=== PATIENT | female | born 1940 | race Caucasian/White ===

== ENCOUNTER 2019-05-27 07:26 | Day surgery (SDC) | payer MEDICARE, BC, MEDICAID ==
[2019-05-27] MEDS ORDERED: Gatifloxacin 0.5% Ophth Soln 2.5 ML Bot EYELF SCH (07:30)
[2019-05-27] MEDS ORDERED: Lactated Ringers 1,000 ML IV SCH (07:30)
[2019-05-27] MEDS ORDERED: Sodium Chloride 0.9% 10 ML Syringe FLUSH PRN (07:30)
[2019-05-27] MEDS: Cyclopentolate 1% Opth Soln 2 ML Bottle EYELF SCH ×3 (07:50→08:19)
[2019-05-27] MEDS: Phenylephrine 10% Ophth Soln 5 ML Bot EYELF SCH ×3 (07:55→08:24)
[2019-05-27] MEDS ORDERED: Balanced Salt Solution Ophth Irrig 15 ML Bottle EYELF ONE (09:16)
[2019-05-27] MEDS ORDERED: Water For Irrigation,Sterile 1,500 ML Container IRR ONE (09:16)
[2019-05-27] MEDS ORDERED: Balanced Salt Solution Plus Ophth Irrig 500 ML Bottle IOCULAR ONE (09:18)
[2019-05-27] MEDS ORDERED: Carbachol 0.01% Intraocular 1.5 ML Vial EYELF ONE (09:18)
[2019-05-27] MEDS ORDERED: EPINEPHrine 1 MG/1 ML Amp ONE (09:19)
[2019-05-27] MEDS ORDERED: Dexamethasone/Neomycin/Polymyxin B Ophth Oint 3.5 GM Tube EYELF ONE (09:19)
[2019-05-27] MEDS ORDERED: Lidocaine 2% with EPINEPHrine 1:100,000 20 ML MDV INJECT ONE (09:19)
[2019-05-27] MEDS ORDERED: Hyaluronate Sodium 1% 0.85 ML Syringe IOCULAR ONE (09:20)
[2019-05-27] MEDS ORDERED: Tetracaine HCl/PF 0.5% 4 ML Bottle EYEBOTH ONE (09:20)
[2019-05-27] MEDS ORDERED: Lidocaine 1% 10 ML MDV INJECT ONE (09:20)
--- NOTE | 2019-05-28 09:03 | OR ---
DATE OF SURGERY: 05/27/2019 SURGEON: Harry Carvajal MD PREOPERATIVE DIAGNOSIS: Cataract, left eye. POSTOPERATIVE DIAGNOSIS: Cataract, left eye. OPERATION PERFORMED: Phacoemulsification with posterior chamber lens insertion, left eye. HISTORY: The patient presents at this time with increasing amount of difficulty using the left eye to read. 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 This eye has a combined cataract and a cataract of aging. FINDINGS: The patient was taken to the operating room where appropriate anesthesia, sedation and monitoring were provided. A retrobulbar block was given on the left side. The eye was massaged and was found to be appropriately soft. The eye and eyelids were then prepped and draped in the usual sterile manner. A lid speculum was placed. A micro sharp blade was used to enter the anterior chamber inside the limbus inferior-temporally. Xylocaine was irrigated into the eye at this site. Healon was irrigated into the eye through this site. Then using a 2.85 mm corneal blade an entry was made into the anterior chamber just inside the limbus temporally. Healon was again irrigated into the eye. Then using a cystitome, the anterior capsulorrhexis was created. The lens nucleus was hydrodissected using a 27 gauge cannula and balanced salt solution. The phacoemulsification unit was introduced through the temporal site and the Omid spatula through the inferior temporal site. In so doing, the lens nucleus was phacoemulsified. The cortical fragments of the lens were removed using the irrigation aspiration unit. The posterior capsule was polished. Healon was irrigated into the eye. The posterior chamber lens was inserted and rotated into position inside the capsular bag. The Healon was irrigated out of the eye. Miostat was irrigated into the eye and the pupil rounded nicely. A single interrupted 10-0 Nylon suture was placed through the temporal corneal incision site. Balanced salt solution was irrigated into the eye. The wound was tested and found to be tight. Maxitrol ointment was placed into the patient's left eye. The eyelids were closed and an eye patch and mosley shield were placed. The patient left the operating room in good condition. /[id number]/MODL
== END 2019-05-27 10:15 | disposition home or self-care (01) ==
LOC: KA.SDS 07:26
PROVIDERS: ATTEND Ophthalmology
DX: H25.813 Combined forms of age-related cataract, bilateral (principal); I48.91 Unspecified atrial fibrillation; I50.9 Heart failure, unspecified; I27.20 Pulmonary hypertension, unspecified; K21.9 Gastro-esophageal reflux disease without esophagitis; F03.90 Unspecified dementia, unspecified severity, without behavioral disturbance, psychotic disturbance, mood disturbance, and anxiety; F32.9 Major depressive disorder, single episode, unspecified; L84 Corns and callosities; M25.551 Pain in right hip; M25.561 Pain in right knee; Z88.5 Allergy status to narcotic agent; Z88.6 Allergy status to analgesic agent; Z88.1 Allergy status to other antibiotic agents; Z79.01 Long term (current) use of anticoagulants; Z79.899 Other long term (current) drug therapy
CPT/HCPCS: 00142; A9270-GY; J0171; J2001; J7120; V2632

== ENCOUNTER 2019-06-24 08:10 | Day surgery (SDC) | payer MEDICARE, BC, MEDICAID ==
[2019-06-24] MEDS ORDERED: Gatifloxacin 0.5% Ophth Soln 2.5 ML Bot EYERT SCH (08:15)
[2019-06-24] MEDS ORDERED: Lactated Ringers 1,000 ML IV SCH (08:15)
[2019-06-24] MEDS ORDERED: Sodium Chloride 0.9% 10 ML Syringe FLUSH PRN (08:15)
[2019-06-24] MEDS: Cyclopentolate 1% Opth Soln 2 ML Bottle EYERT SCH ×3 (08:18→08:44)
[2019-06-24] MEDS: Phenylephrine 10% Ophth Soln 5 ML Bot EYERT SCH ×3 (08:23→08:50)
[2019-06-24] MEDS ORDERED: Water For Irrigation,Sterile 1,500 ML Container IRR ONE (10:04)
[2019-06-24] MEDS ORDERED: EPINEPHrine 1 MG/1 ML Amp ONE (10:05)
[2019-06-24] MEDS ORDERED: Carbachol 0.01% Intraocular 1.5 ML Vial EYERT ONE (10:05)
[2019-06-24] MEDS ORDERED: Balanced Salt Solution Ophth Irrig 15 ML Bottle EYERT ONE (10:05)
[2019-06-24] MEDS ORDERED: Balanced Salt Solution Plus Ophth Irrig 500 ML Bottle IOCULAR ONE (10:05)
[2019-06-24] MEDS ORDERED: Dexamethasone/Neomycin/Polymyxin B Ophth Oint 3.5 GM Tube EYERT ONE (10:06)
[2019-06-24] MEDS ORDERED: Lidocaine 1% 10 ML MDV INJECT ONE (10:06)
[2019-06-24] MEDS ORDERED: Lidocaine 2% with EPINEPHrine 1:100,000 20 ML MDV INJECT ONE (10:06)
[2019-06-24] MEDS ORDERED: Tetracaine HCl/PF 0.5% 4 ML Bottle EYEBOTH ONE (10:07)
[2019-06-24] MEDS ORDERED: Hyaluronate Sodium 1% 0.85 ML Syringe IOCULAR ONE (10:07)
--- NOTE | 2019-06-24 14:54 | OR ---
DATE OF SURGERY: 06/24/2019 SURGEON: Harry Carvajal MD PREOPERATIVE DIAGNOSIS: Cataract, right eye. POSTOPERATIVE DIAGNOSIS: Cataract, right eye. OPERATION PERFORMED: Phacoemulsification with posterior chamber lens insertion, right eye. HISTORY: The patient presents at this time with increasing amount of difficulty seeing to read using the right eye. The right eye has a vision of 20/100. The right lens has a 3+ nuclear sclerosis, a 1+ cortical change and a 2+ posterior subcapsular change. This eye has a combined cataract and a cataract of aging. FINDINGS: The patient was taken to the operating room where appropriate anesthesia, sedation and monitoring were provided. A retrobulbar block was given on the right side. The eye was massaged and was found to be appropriately soft. The eye and eyelids were then prepped and draped in the usual sterile manner. A lid speculum was placed. A micro sharp blade was used to enter the anterior chamber inside the limbus superior-temporally. Xylocaine was irrigated into the eye at this site. Healon was irrigated into the eye through this site. Then using a 2.85 mm corneal blade an entry was made into the anterior chamber just inside the limbus temporally. Healon was again irrigated into the eye. Then using a cystitome, the anterior capsulorrhexis was created. The lens nucleus was hydrodissected using a 27 gauge cannula and balanced salt solution. The phacoemulsification unit was introduced through the temporal site and the Omid spatula through the superior temporal site. In so doing, the lens nucleus was phacoemulsified. The cortical fragments of the lens were removed using the irrigation aspiration unit. The posterior capsule was polished. Healon was irrigated into the eye. The posterior chamber lens was inserted and rotated into position inside the capsular bag. The Healon was irrigated out of the eye. Miostat was irrigated into the eye and the pupil rounded nicely. A single interrupted 10-0 Nylon suture was placed through the temporal corneal incision site. Balanced salt solution was irrigated into the eye. The wound was tested and found to be tight. Maxitrol ointment was placed into the patient's right eye. The eyelids were closed and an eye patch and mosley shield were placed. The patient left the operating room in good condition. /[id number]/MODL
== END 2019-06-24 11:10 | disposition home or self-care (01) ==
LOC: KA.SDS 08:10
PROVIDERS: ATTEND Ophthalmology
DX: H25.11 Age-related nuclear cataract, right eye (principal); F41.8 Other specified anxiety disorders; I48.91 Unspecified atrial fibrillation; K21.9 Gastro-esophageal reflux disease without esophagitis; I50.9 Heart failure, unspecified; F03.90 Unspecified dementia, unspecified severity, without behavioral disturbance, psychotic disturbance, mood disturbance, and anxiety; G89.29 Other chronic pain; D50.9 Iron deficiency anemia, unspecified; G47.00 Insomnia, unspecified; I10 Essential (primary) hypertension; E83.42 Hypomagnesemia; Z79.899 Other long term (current) drug therapy; M81.0 Age-related osteoporosis without current pathological fracture; Z88.1 Allergy status to other antibiotic agents; Z88.5 Allergy status to narcotic agent; Z88.6 Allergy status to analgesic agent; Z88.8 Allergy status to other drugs, medicaments and biological substances
CPT/HCPCS: 66984; A9270; J0171; J2001; J7120; V2632

== ENCOUNTER 2019-12-27 10:11 | Observation (INO) | payer MEDICARE, BC, MEDICAID ==
[2019-12-27] MEDS ORDERED: Sodium Chloride 0.9% 1,000 ML IV ONE (10:28)
[2019-12-27] MEDS ORDERED: Sodium Chloride 0.9% 1,000 ML ONE (10:30)
[2019-12-27 10:55] LABS: ANION GAP 12.3 mmol/L (5-15)
--- NOTE | 2019-12-27 11:20 | EDM.PDOC ---
ED HPI GENERAL MEDICAL PROBLEM - General Chief Complaint: General Stated Complaint: lightheadedness Time Seen by Provider: 12/27/19 10:20 Source of Information: Reports: Patient, Family (son) - History of Present Illness INITIAL COMMENTS - FREE TEXT/NARRATIVE: 79-year-old female resident at [facility], brought in by EMS for evaluation of generalized weakness and dizziness complaints. Patient reports that she has been feeling dizzy for about a week to 10 days. She denies any syncopal episodes. She denies pain. She denies shortness of breath, cough, chest pain, fever or chills. She denies any significant weight gain or loss. She denies headache. He is on anticoagulation for history of atrial fibrillation. She has history of congestive heart failure iron deficiency anemia and hypertension. She has a history of chronic pain for her lower back. He is followed by Dr. Rossy Gao. Her son accompanies her who is her power of bankruptcy attorney. Onset: Gradual Onset Date: 12/18/19 Duration: Getting Worse Location: Reports: Generalized Severity: Moderate Improves with: Reports: None Worsens with: Reports: None Associated Symptoms: Reports: Weakness, Other (dizziness). Denies: Chest Pain, Cough, Fever/Chills, Headaches, Nausea/Vomiting, Seizure, Shortness of Breath, Syncope - Related Data Allergies Allergy/AdvReac Type Severity Reaction Status Date / Time ceftriaxone Allergy Cannot Verified 12/27/19 10:51 Remember hydrocodone Allergy Cannot Verified 12/27/19 10:51 Remember ibuprofen Allergy Cannot Verified 12/27/19 10:51 Remember ofloxacin Allergy Cannot Verified 12/27/19 10:51 Remember propoxyphene Allergy Cannot Verified 12/27/19 10:51 Remember Home Meds: Home Meds ARIPiprazole [Abilify] 2 mg PO DAILY 05/26/19 [History] Acetaminophen 1,000 mg PO DAILY PRN 05/26/19 [History] Carboxymethylcellulose/Lytes [John-Stir Oral [place]] 1 spray PO QID PRN 05/26/19 [ History] DULoxetine [Cymbalta] 60 mg PO DAILY 05/26/19 [History] Digoxin 125 mcg PO DAILY 05/26/19 [History] Docusate Sodium 100 mg PO BID PRN 05/26/19 [History] Donepezil HCl 10 mg PO DAILY 05/26/19 [History] Famotidine/Ca Carb/Mag Hydrox [Tums Dual Action] 1 tab PO QIDACANDBED PRN [History] Ferrous Sulfate 325 mg PO Q48H 05/26/19 [History] Furosemide 40 mg PO DAILY 05/26/19 [History] Magnesium Oxide 400 mg PO DAILY 05/26/19 [History] Metoprolol Succinate 12.5 mg PO DAILY 05/26/19 [History] Mv,Dimitri,Iron,Mn/Folic Acid/Chol [Hair, Skin and Nails Capsule] 2 tab PO DAILY 11/08 [History] Pantoprazole Sodium 40 mg PO DAILY 05/26/19 [History] Rivaroxaban [Xarelto] 15 mg PO DAILY 05/26/19 [History] Spironolactone [Aldactone] 12.5 mg PO DAILY 05/26/19 [History] buPROPion HCL [Wellbutrin Xl] 300 mg PO DAILY 05/26/19 [History] guaiFENesin [Mucinex] 600 mg PO Q12H PRN 05/26/19 [History] guaiFENesin/Dextromethorphan [Safetussin DM] 5 ml PO Q4H PRN 05/26/19 [History] lisinopriL [Lisinopril] 2.5 mg PO DAILY 05/26/19 [History] tiZANidine [Zanaflex] 4 mg PO BEDTIME PRN 05/26/19 [History] traMADol HCl [Tramadol HCl] 50 mg PO ASDIRECTED PRN 05/26/19 [History] traMADol HCl [Tramadol HCl] 50 mg PO TID 05/26/19 [History] traMADol HCl [Tramadol HCl] 100 mg PO BEDTIME 05/26/19 [History] Past Medical History HEENT History: Reports: Cataract, Impaired Vision Cardiovascular History: Reports: Afib, Heart Failure, Hypertension, SOB on Exertion Gastrointestinal History: Reports: GERD Genitourinary History: Reports: None [employer] MANAGER History: Reports: Musculoskeletal History: Reports: Back Pain, Chronic, Neck Pain, Chronic, Osteoporosis Neurological History: Reports: Alzheimers Disease Psychiatric History: Reports: Anxiety, Depression Hematologic History: Reports: Blood Transfusion(s) - Infectious Disease History Infectious Disease History: Reports: C-Difficile, Chicken Pox, Measles, MRSA, Mumps, Pertussis (Whooping Cough), Rubella - Past Surgical History HEENT Surgical History: Reports: Cataract Surgery Cardiovascular Surgical History: Reports: None GI Surgical History: Reports: Appendectomy, Cholecystectomy, Colonoscopy Female Surgical History: Reports: Hysterectomy Neurological Surgical History: Reports: Lumbar Spine Other Neurological Surgeries/Procedures: jose in lumbar region - history of mrsa Musculoskeletal Surgical History: Reports: Knee Replacement, Shoulder Surgery Other Musculoskeletal Surgeries/Procedures:: right shoulder reconstructed. right knee replacement Social & Family History - Caffeine Use Caffeine Use: Reports: Coffee, Soda, Tea ED ROS GENERAL - Review of Systems Review Of Systems: See Below Constitutional: Reports: Weakness, Fatigue. Denies: Fever, Chills, Diaphoresis HEENT: Reports: No Symptoms Respiratory: Reports: No Symptoms Cardiovascular: Reports: Lightheadedness. Denies: Chest Pain, Dyspnea on Exertion, Orthopnea, Palpitations, Syncope Endocrine: Reports: Fatigue GI/Abdominal: Reports: No Symptoms : Reports: No Symptoms Musculoskeletal: Reports: Back Pain (chronic) Skin: Reports: No Symptoms Neurological: Reports: Dizziness, Weakness Psychiatric: Reports: Depression Hematologic/Lymphatic: Reports: Easy Bleeding Immunologic: Reports: No Symptoms ED EXAM, GENERAL - Physical Exam Exam: See Below Exam Limited By: No Limitations General Appearance: Alert, WD/WN, No Apparent Distress Eye Exam: Bilateral Eye: EOMI Ears: Hearing Grossly Normal Nose: Normal Inspection Throat/Mouth: Normal Inspection, Normal Oropharynx, Normal Voice, No Airway Compromise Head: Atraumatic, Normocephalic Neck: Normal Inspection, Supple, Non-Tender, Full Range of Motion Respiratory/Chest: No Respiratory Distress, Lungs Clear, Normal Breath Sounds, No Accessory Muscle Use Cardiovascular: Normal Peripheral Pulses, Bradycardia Peripheral Pulses: 2+: Carotid (L), Carotid (R), Dorsalis Pedis (L) GI/Abdominal: Normal Bowel Sounds, Soft, Non-Tender, No Organomegaly Back Exam: Normal Inspection Extremities: Normal Inspection, Non-Tender, No Pedal Edema Neurological: Alert, Oriented, No Motor/Sensory Deficits Psychiatric: Normal Affect, Depressed Mood Skin Exam: Warm, Dry, Intact, Normal Color, No Rash Lymphatic: No Adenopathy Course - Vital Signs Last Recorded V/S: Last Vital Signs Temp 97 F 12/27/19 10:15 Pulse 50 L 12/27/19 10:15 Resp 20 12/27/19 10:15 BP 82/40 L 12/27/19 10:15 Pulse Ox 99 12/27/19 10:15 - Orders/Labs/Meds Orders: Active Orders 24 hr Category Date Time Status Patient Status [ADT] Routine ADT 12/27/19 11:45 Active Antiembolic Devices [RC] .Routine Care 12/27/19 11:48 Active EKG Documentation Completion [RC] ASDIRECTED Care 12/27/19 10:30 Active Height and Weight [RC] DAILY Care 12/27/19 11:45 Active Intake and Output [RC] QSHIFT Care 12/27/19 11:47 Active Oxygen Therapy [RC] PRN Care 12/27/19 11:47 Active Pulse Oximetry [RC] PRN Care 12/27/19 11:47 Active Up With Assistance [RC] ASDIRECTED Care 12/27/19 11:45 Active VTE/DVT Education [RC] PER UNIT ROUTINE Care 12/27/19 11:48 Active Vital Signs [RC] Q4H Care 12/27/19 11:45 Active POTASSIUM,K [CHEM] Stat Lab 12/27/19 11:43 Ordered TROPONIN I [CHEM] Timed Lab 12/27/19 17:00 Ordered UA W/MICROSCOPIC [URIN] Stat Lab 12/27/19 10:29 Ordered ARIPiprazole Med 12/28/19 09:00 Active 2 mg PO DAILY Acetaminophen [Tylenol Extra Strength] Med 12/27/19 11:49 Active 1,000 mg PO DAILY PRN Acetaminophen [Tylenol] Med 12/27/19 11:45 Active 650 mg PO Q4H PRN Carboxymethylcellulose/Lytes [John-Stir Oral [place]] Med 12/27/19 11:49 Active 0 ml MUCMEM QID PRN DULoxetine [Cymbalta] Med 12/28/19 09:00 Active 60 mg PO DAILY Digoxin [Lanoxin] Med 12/28/19 09:00 Active 125 mcg PO DAILY Docusate Sodium [Colace] Med 12/27/19 11:49 Active 100 mg PO BID PRN Docusate Sodium [Colace] Med 12/27/19 11:45 Active 100 mg PO DAILY PRN Donepezil [Aricept] Med 12/28/19 09:00 Active 10 mg PO DAILY Famotidine/Ca Carb/Mag Hydrox [Tums Dual Action] Med 12/27/19 11:49 Active 1 tab PO QIDACANDBED PRN Ferrous Sulfate Med 12/27/19 12:00 Active 325 mg PO Q48H Furosemide [Lasix] Med 12/28/19 09:00 Active 40 mg PO DAILY Magnesium Oxide [Magnesium Oxide] Med 12/28/19 09:00 Active 400 mg PO DAILY Mv,Dimitri,Iron,Mn/Folic Acid/Chol [Hair, Skin and Nails Med 12/28/19 09:00 Active Capsule] 2 tab PO DAILY Pantoprazole [ProTONIX] Med 12/28/19 09:00 Active 40 mg PO DAILY Rivaroxaban Med 12/28/19 09:00 Active 15 mg PO DAILY buPROPion HCL [Wellbutrin Xl] Med 12/28/19 09:00 Active 300 mg PO DAILY guaiFENesin [Mucinex] Med 12/27/19 11:49 Active 600 mg PO Q12H PRN guaiFENesin/Dextromethorphan [Safetussin DM] Med 12/27/19 11:49 Active 5 ml PO Q4H PRN lisinopriL [Lisinopril] Med 12/28/19 09:00 Active 2.5 mg PO DAILY tiZANidine [Zanaflex] Med 12/27/19 11:49 Active 4 mg PO BEDTIME PRN traMADol [Ultram] Med 12/27/19 21:00 Active 100 mg PO BEDTIME traMADol [Ultram] Med 12/27/19 11:49 Active 50 mg PO ASDIRECTED PRN traMADol [Ultram] Med 12/27/19 14:00 Active 50 mg PO TID Antiembolic Hose [OM.PC] Per Unit Routine Oth 12/27/19 11:48 Ordered DVT/VTE Prophylaxis Reflex [OM.PC] Routine Oth 12/27/19 11:45 Ordered EKG 12 Lead [EK] Stat Ther 12/27/19 10:29 Ordered Medication Orders Acetaminophen (Tylenol) 650 mg PO Q4H PRN PRN Reason: analgesia/fever Acetaminophen (Tylenol Extra Strength) 1,000 mg PO DAILY PRN PRN Reason: Pain Digoxin (Lanoxin) 125 mcg PO DAILY RADHA Docusate Sodium (Colace) 100 mg PO DAILY PRN PRN Reason: Constipation Docusate Sodium (Colace) 100 mg PO BID PRN PRN Reason: Constipation Donepezil HCl (Aricept) 10 mg PO DAILY RADHA Ferrous Sulfate (Ferrous Sulfate) 325 mg PO Q48H RADHA Furosemide (Lasix) 40 mg PO DAILY RADHA Guaifenesin (Mucinex) 600 mg PO Q12H PRN PRN Reason: Congestion Non-Formulary Medication (Aripiprazole) 2 mg PO DAILY RADHA Non-Formulary Medication (Bupropion Hcl [Wellbutrin Xl]) 300 mg PO DAILY RADHA Non-Formulary Medication (Duloxetine [Cymbalta]) 60 mg PO DAILY RADHA Non-Formulary Medication (Famotidine/Ca Carb/Mag Hydrox [Tums Dual Action]) 1 tab PO QIDACANDBED PRN PRN Reason: Heartburn Non-Formulary Medication (Guaifenesin/Dextromethorphan [Safetussin Dm]) 5 ml PO Q4H PRN PRN Reason: Cough Non-Formulary Medication (Lisinopril [Lisinopril]) 2.5 mg PO DAILY RADHA Non-Formulary Medication (Magnesium Oxide [Magnesium Oxide]) 400 mg PO DAILY RADHA Non-Formulary Medication (Mv,Dimitri,Iron,Mn/Folic Acid/Chol [Hair, Skin And Nails Capsule]) 2 tab PO DAILY RADHA Non-Formulary Medication (Rivaroxaban) 15 mg PO DAILY RADHA Pantoprazole Sodium (Protonix) 40 mg PO DAILY RADHA Saliva Substitute (John-Stir Oral [place]) 0 ml MUCMEM QID PRN PRN Reason: Dryness Tizanidine HCl (Zanaflex) 4 mg PO BEDTIME PRN PRN Reason: Other Tramadol HCl (Ultram) 50 mg PO ASDIRECTED PRN PRN Reason: Pain Tramadol HCl (Ultram) 50 mg PO TID RADHA Tramadol HCl (Ultram) 100 mg PO BEDTIME RADHA Labs: Laboratory Tests 12/27/19 12/27/19 Range/Units 10:20 10:20 WBC 7.79 (5.00-10.00) 10^3/uL RBC 3.37 L (3.80-5.50) 10^6/uL Hgb 9.8 L (12.0-16.0) g/dL Hct 33.8 L (37.0-47.0) % MCV 100.3 H (82.0-92.0) fL MCH 29.1 (27.0-31.0) pg MCHC 29.0 L (32.0-36.0) g/dL RDW 16.0 H (11.5-14.5) % Plt Count 229 (150-400) 10^3/uL MPV 8.6 (7.4-10.4) fL Immature Gran % (Auto) 0.1 (0.0-5.0) % Neut % (Auto) 66.8 (50.0-70.0) % Lymph % (Auto) 20.5 (20.0-40.0) % [place] % (Auto) 11.6 H (2.0-8.0) % Eos % (Auto) 0.6 L (1.0-3.0) % Baso % (Auto) 0.4 (0.0-1.0) % Neut # (Auto) 5.20 (2.50-7.00) 10^3/uL Lymph # (Auto) 1.60 (1.00-4.00) 10^3/uL [place] # (Auto) 0.90 H (0.10-0.80) 10^3/uL Eos # (Auto) 0.05 L (0.10-0.30) 10^3/uL Baso # (Auto) 0.03 (0.00-0.10) 10^3/uL Immature Gran # (Auto) 0.01 (0.00-0.50) 10^3/uL Sodium 138 (136-145) mmol/L Potassium 6.4 H (3.3-5.3) mmol/L Chloride 103 (98-115) mmol/L Carbon Dioxide 29.1 (21.0-32.0) mmol/L Anion Gap 12.3 (5-15) mmol/L BUN 50 H (6-25) mg/dL Creatinine 1.92 H (0.51-1.17) mg/dL Est Cr Clr Drug Dosing 22.97 mL/min Estimated GFR (MDRD) 25 mL/min Glucose 93 (75 - 99) mg/dL Calcium 8.6 L (8.7-10.3) mg/dL Total Bilirubin 0.2 (0.2-1.0) mg/dL AST 17 (15-37) U/L ALT 25 (12-78) U/L Alkaline Phosphatase 98 (46-116) IU/L Troponin I 0.11 H* (0.00-0.070) ng/mL Total Protein 6.6 (6.4-8.2) g/dL Albumin 3.20 (3.00-4.80) g/dL Meds: Medications Generic Name Dose Route Start Last Admin Trade Name Freq PRN Reason Stop Dose Admin Acetaminophen 650 mg 12/27/19 11:45 Tylenol PO Q4H PRN analgesia/fever Acetaminophen 1,000 mg 12/27/19 11:49 Tylenol Extra Strength PO DAILY PRN Pain Digoxin 125 mcg 12/28/19 09:00 Lanoxin PO DAILY RADHA Docusate Sodium 100 mg 12/27/19 11:45 Colace PO DAILY PRN Constipation Docusate Sodium 100 mg 12/27/19 11:49 Colace PO BID PRN Constipation Donepezil HCl 10 mg 12/28/19 09:00 Aricept PO DAILY RADHA Ferrous Sulfate 325 mg 12/27/19 12:00 Ferrous Sulfate PO Q48H RADHA Furosemide 40 mg 12/28/19 09:00 Lasix PO DAILY RADHA Guaifenesin 600 mg 12/27/19 11:49 Mucinex PO Q12H PRN Congestion Non-Formulary Medication 2 mg 12/28/19 09:00 Aripiprazole PO DAILY RADHA Non-Formulary Medication 300 mg 12/28/19 09:00 Bupropion Hcl [Wellbutrin Xl] PO DAILY RADHA Non-Formulary Medication 60 mg 12/28/19 09:00 Duloxetine [Cymbalta] PO DAILY RADHA Non-Formulary Medication 1 tab 12/27/19 11:49 Famotidine/Ca Carb/Mag Hydrox [Tums Dual Action] PO QIDACANDBED PRN Heartburn Non-Formulary Medication 5 ml 12/27/19 11:49 Guaifenesin/Dextromethorphan [Safetussin Dm] PO Q4H PRN Cough Non-Formulary Medication 2.5 mg 12/28/19 09:00 Lisinopril [Lisinopril] PO DAILY RADHA Non-Formulary Medication 400 mg 12/28/19 09:00 Magnesium Oxide [Magnesium Oxide] PO DAILY RADHA Non-Formulary Medication 2 tab 12/28/19 09:00 Mv,Dimitri,Iron,Mn/Folic Acid/Chol [Hair, Skin And Nails Capsule] PO DAILY RADHA Non-Formulary Medication 15 mg 12/28/19 09:00 Rivaroxaban PO DAILY RADHA Pantoprazole Sodium 40 mg 12/28/19 09:00 Protonix PO DAILY RADHA Saliva Substitute 0 ml 12/27/19 11:49 John-Stir Oral [place] MUCMEM QID PRN Dryness Tizanidine HCl 4 mg 12/27/19 11:49 Zanaflex PO BEDTIME PRN Other Tramadol HCl 50 mg 12/27/19 11:49 Ultram PO ASDIRECTED PRN Pain Tramadol HCl 50 mg 12/27/19 14:00 Ultram PO TID RADHA Tramadol HCl 100 mg 12/27/19 21:00 Ultram PO BEDTIME RADHA Discontinued Medications Generic Name Dose Route Start Last Admin Trade Name Freq PRN Reason Stop Dose Admin Sodium Chloride 1,000 mls @ 999 mls/hr 12/27/19 10:28 Normal Saline IV 12/27/19 11:28 .BOLUS ONE Sodium Chloride Confirm 12/27/19 10:30 Normal Saline Administered 12/27/19 10:31 Dose 1,000 mls @ as directed .ROUTE .[facility] - Re-Assessments/Exams Free Text/Narrative Re-Assessment/Exam: 12/27/19 12:13 1 L normal saline was given. Patient is comfortable. We will redraw her potassium after fluids have been given. Departure - Departure Time of Disposition: 12:14 Disposition: Refer to Observation Condition: Fair Clinical Impression: Hyperkalemia, Dizziness on standing, Weakness, Elevated troponin, Bradycardia Hypotension Qualifiers: Hypotension type: unspecified hypotension type Qualified Code(s): I95.9 - Hypotension, unspecified - Discharge Information Forms: ED Department Discharge Sepsis Event Note - Evaluation Sepsis Screening Result: No Definite Risk - Focused Exam Vital Signs: Vital Signs Temp Pulse Resp BP Pulse Ox 12/27/19 10:15 97 F 50 L 20 82/40 L 99 Date Exam was Performed: 12/27/19 Time Exam was Performed: 12:07 - Problem List Review Problem List Initiated/Reviewed/Updated: Yes - My Orders Last 24 Hours: My Active Orders 12/27/19 10:29 UA W/MICROSCOPIC [URIN] Stat EKG 12 Lead [EK] Stat 12/27/19 10:30 EKG Documentation Completion [RC] ASDIRECTED 12/27/19 11:43 POTASSIUM,K [CHEM] Stat 12/27/19 11:45 Patient Status [ADT] Routine Height and Weight [RC] DAILY Up With Assistance [RC] ASDIRECTED Vital Signs [RC] Q4H Acetaminophen [Tylenol] 650 mg PO Q4H PRN Docusate Sodium [Colace] 100 mg PO DAILY PRN DVT/VTE Prophylaxis Reflex [OM.PC] Routine 12/27/19 11:47 Intake and Output [RC] QSHIFT Oxygen Therapy [RC] PRN Pulse Oximetry [RC] PRN 12/27/19 11:48 Antiembolic Devices [RC] .Routine VTE/DVT Education [RC] PER UNIT ROUTINE Antiembolic Hose [OM.PC] Per Unit Routine 12/27/19 11:49 Acetaminophen [Tylenol Extra Strength] 1,000 mg PO DAILY PRN Carboxymethylcellulose/Lytes [John-Stir Oral [place]] 0 ml MUCMEM QID PRN Docusate Sodium [Colace] 100 mg PO BID PRN Famotidine/Ca Carb/Mag Hydrox [Tums Dual Action] 1 tab PO QIDACANDBED PRN guaiFENesin [Mucinex] 600 mg PO Q12H PRN guaiFENesin/Dextromethorphan [Safetussin DM] 5 ml PO Q4H PRN tiZANidine [Zanaflex] 4 mg PO BEDTIME PRN traMADol [Ultram] 50 mg PO ASDIRECTED PRN 12/27/19 12:00 Ferrous Sulfate 325 mg PO Q48H 12/27/19 14:00 traMADol [Ultram] 50 mg PO TID 12/27/19 17:00 TROPONIN I [CHEM] Timed 12/27/19 21:00 traMADol [Ultram] 100 mg PO BEDTIME 12/28/19 09:00 ARIPiprazole 2 mg PO DAILY DULoxetine [Cymbalta] 60 mg PO DAILY Digoxin [Lanoxin] 125 mcg PO DAILY Donepezil [Aricept] 10 mg PO DAILY Furosemide [Lasix] 40 mg PO DAILY Magnesium Oxide [Magnesium Oxide] 400 mg PO DAILY Mv,Dimitri,Iron,Mn/Folic Acid/Chol [Hair, Skin and Nails Capsule] 2 tab PO DAILY Pantoprazole [ProTONIX] 40 mg PO DAILY Rivaroxaban 15 mg PO DAILY buPROPion HCL [Wellbutrin Xl] 300 mg PO DAILY lisinopriL [Lisinopril] 2.5 mg PO DAILY - Assessment/Plan Admission H&P: Please use this note as an admission H&P Last 24 Hours: My Active Orders 12/27/19 10:29 UA W/MICROSCOPIC [URIN] Stat EKG 12 Lead [EK] Stat 12/27/19 10:30 EKG Documentation Completion [RC] ASDIRECTED 12/27/19 11:43 POTASSIUM,K [CHEM] Stat 12/27/19 11:45 Patient Status [ADT] Routine Height and Weight [RC] DAILY Up With Assistance [RC] ASDIRECTED Vital Signs [RC] Q4H Acetaminophen [Tylenol] 650 mg PO Q4H PRN Docusate Sodium [Colace] 100 mg PO DAILY PRN DVT/VTE Prophylaxis Reflex [OM.PC] Routine 12/27/19 11:47 Intake and Output [RC] QSHIFT Oxygen Therapy [RC] PRN Pulse Oximetry [RC] PRN 12/27/19 11:48 Antiembolic Devices [RC] .Routine VTE/DVT Education [RC] PER UNIT ROUTINE Antiembolic Hose [OM.PC] Per Unit Routine 12/27/19 11:49 Acetaminophen [Tylenol Extra Strength] 1,000 mg PO DAILY PRN Carboxymethylcellulose/Lytes [John-Stir Oral [place]] 0 ml MUCMEM QID PRN Docusate Sodium [Colace] 100 mg PO BID PRN Famotidine/Ca Carb/Mag Hydrox [Tums Dual Action] 1 tab PO QIDACANDBED PRN guaiFENesin [Mucinex] 600 mg PO Q12H PRN guaiFENesin/Dextromethorphan [Safetussin DM] 5 ml PO Q4H PRN tiZANidine [Zanaflex] 4 mg PO BEDTIME PRN traMADol [Ultram] 50 mg PO ASDIRECTED PRN 12/27/19 12:00 Ferrous Sulfate 325 mg PO Q48H 12/27/19 14:00 traMADol [Ultram] 50 mg PO TID 12/27/19 17:00 TROPONIN I [CHEM] Timed 12/27/19 21:00 traMADol [Ultram] 100 mg PO BEDTIME 12/28/19 09:00 ARIPiprazole 2 mg PO DAILY DULoxetine [Cymbalta] 60 mg PO DAILY Digoxin [Lanoxin] 125 mcg PO DAILY Donepezil [Aricept] 10 mg PO DAILY Furosemide [Lasix] 40 mg PO DAILY Magnesium Oxide [Magnesium Oxide] 400 mg PO DAILY Mv,Dimitri,Iron,Mn/Folic Acid/Chol [Hair, Skin and Nails Capsule] 2 tab PO DAILY Pantoprazole [ProTONIX] 40 mg PO DAILY Rivaroxaban 15 mg PO DAILY buPROPion HCL [Wellbutrin Xl] 300 mg PO DAILY lisinopriL [Lisinopril] 2.5 mg PO DAILY Assessment:: Hyperkalemia Hypotension Bradycardia Generalized weakness Generalized dizziness Mildly elevated troponin Plan: 1. Patient will place an observational status on telemetry. 2. 1 L of fluids was given in the emergency room, second liter will begin at 125 mL an hour. 3. Will hold patient's spirinolactone 4. Hold metipranolol 5. Repeat troponin 1700 hrs. 6. Re-draw potassium after first liter of fluids given. May give the patient Kayexelate if potassium is still greater than 6.
[2019-12-27] MEDS ORDERED: Docusate Sodium 100 MG Cap PO PRN ×3 (11:45→16:40)
[2019-12-27] MEDS ORDERED: Acetaminophen 325 MG Tab PO PRN ×2 (11:45→13:33)
[2019-12-27] MEDS ORDERED: guaiFENesin 600 MG Tab.ER PO PRN (11:49)
[2019-12-27] MEDS ORDERED: [UNRECOGNIZED DRUG - OTHER] PO PRN (11:49)
[2019-12-27] MEDS ORDERED: traMADol 50 MG Tab PO PRN (11:49)
[2019-12-27] MEDS ORDERED: DEXTROMETHORPHAN PO PRN (11:49)
[2019-12-27] MEDS ORDERED: MAG HYDROX PO PRN (11:49)
[2019-12-27] MEDS ORDERED: tiZANidine 4 MG Tab PO PRN (11:49)
[2019-12-27] MEDS ORDERED: GUAIFENESIN PO PRN (11:49)
[2019-12-27] MEDS ORDERED: FAMOTIDINE PO PRN (11:49)
[2019-12-27] MEDS ORDERED: CA CARB PO PRN (11:49)
[2019-12-27] MEDS ORDERED: Acetaminophen 500 MG Tab PO PRN ×2 (11:49→16:02)
[2019-12-27] MEDS ORDERED: Saliva Substitute Oral Spray 120 ML Bottle MUCMEM PRN ×2 (11:49→16:02)
[2019-12-27] MEDS ORDERED: Ferrous Sulfate 325 MG Tab PO SCH (12:00)
[2019-12-27] MEDS ORDERED: Sodium Polystyrene Sulfonate 15 GM/60 ML Susp 60 ML Bot PO ONE (12:48)
[2019-12-27] MEDS: Sodium Chloride 0.9% 1,000 ML IV SCH ×2 (13:51→22:26)
[2019-12-27] MEDS ORDERED: traMADol 50 MG Tab PO SCH ×3 (14:00→21:00)
[2019-12-27] MEDS ORDERED: guaiFENesin/Dextromethorphan 100-10 MG/5 ML Soln 5 ML Cup PO PRN (16:02)
[2019-12-27] MEDS ORDERED: Calcium Carbonate 500 MG Tab.Chew PO PRN (16:02)
[2019-12-27] MEDS ORDERED: Albuterol/Ipratropium 3.0-0.5 MG/3 ML Neb Soln INH PRN (16:02)
[2019-12-27] MEDS ORDERED: Trolamine Salicylate/Aloe Vera 10% Crm 85 GM Tube TOP PRN (16:02)
[2019-12-27] MEDS ORDERED: ARIPIPRAZOLE 2 MG PO SCH (16:15)
[2019-12-27] MEDS: traMADol 50 MG Tab PO PRN (19:36)
[2019-12-27] MEDS: DULoxetine 30 MG Cap PO SCH (21:00)
[2019-12-27] MEDS: Rivaroxaban 10 MG Tab PO SCH (21:00)
[2019-12-27] MEDS: traMADol 50 MG Tab PO SCH (21:01)
[2019-12-27] MEDS: Calcium Carbonate 500 MG Tab.Chew PO SCH (21:02)
[2019-12-27] MEDS: Sulfamethoxazole/Trimethoprim 800-160 MG Tab PO SCH (21:02)
[2019-12-27] MEDS: Donepezil 10 MG Tab PO SCH (21:02)
[2019-12-27] MEDS: Pantoprazole 40 MG Tab.CR PO SCH (21:02)
[2019-12-28] MEDS: Acetaminophen 500 MG Tab PO PRN (01:09)
[2019-12-28] MEDS: Sodium Chloride 0.9% 1,000 ML IV SCH ×3 (06:50→23:11)
[2019-12-28] MEDS ORDERED: Ferrous Sulfate 325 MG Tab PO SCH (08:00)
[2019-12-28 08:55] LABS: ANION GAP 13.4 mmol/L (5-15)
[2019-12-28] MEDS ORDERED: CHOL PO SCH (09:00)
[2019-12-28] MEDS ORDERED: Spironolactone 25 MG Tab PO SCH (09:00)
[2019-12-28] MEDS ORDERED: buPROPion 150 MG Tab.ER PO SCH (09:00)
[2019-12-28] MEDS ORDERED: Pantoprazole 40 MG Tab.CR PO SCH (09:00)
[2019-12-28] MEDS ORDERED: ARIPIPRAZOLE 2 MG PO SCH (09:00)
[2019-12-28] MEDS ORDERED: Donepezil 10 MG Tab PO SCH (09:00)
[2019-12-28] MEDS ORDERED: RIVAROXABAN 15 MG PO SCH (09:00)
[2019-12-28] MEDS ORDERED: MV CAL IRON MN PO SCH (09:00)
[2019-12-28] MEDS ORDERED: Lisinopril 5 MG Tab PO SCH (09:00)
[2019-12-28] MEDS ORDERED: Non-Formulary Medication 1 Each (Magnesium Oxide [Magnesium Oxide] 400 MG) PO SCH (09:00)
[2019-12-28] MEDS ORDERED: Furosemide 40 MG Tab PO SCH (09:00)
[2019-12-28] MEDS ORDERED: FOLIC ACID PO SCH (09:00)
[2019-12-28] MEDS ORDERED: DULoxetine 30 MG Cap PO SCH (09:00)
[2019-12-28] MEDS ORDERED: [UNRECOGNIZED DRUG - OTHER] PO SCH (09:00)
[2019-12-28] MEDS ORDERED: Digoxin 125 MCG Tab PO SCH ×2 (09:00→18:00)
[2019-12-28] MEDS: buPROPion 150 MG Tab.ER PO SCH (09:41)
[2019-12-28] MEDS: Magnesium Oxide 500 MG Tab PO SCH (09:41)
[2019-12-28] MEDS: Furosemide 40 MG Tab PO SCH (09:42)
[2019-12-28] MEDS: Sulfamethoxazole/Trimethoprim 800-160 MG Tab PO SCH ×2 (09:42→21:17)
[2019-12-28] MEDS: traMADol 50 MG Tab PO SCH ×3 (09:42→21:16)
[2019-12-28] MEDS: Metoprolol Succinate 25 MG Tab.ER PO SCH ×2 (10:11→10:12)
[2019-12-28] MEDS: Lisinopril 5 MG Tab PO SCH (10:12)
--- NOTE | 2019-12-28 13:37 | PN ---
12/28/2019 PATIENT NAME: BRAULIO PATE This is a 79-year-old female who was brought by EMS to the emergency room yesterday for generalized weakness and dizziness. The patient was found to be bradycardic at the [place] [facility] as well as hypotensive with a blood pressure of 80/50. The patient reports to me today, she has had 5 days of diarrhea prior to becoming symptomatic. She is definitely dehydrated from the diarrhea that she experienced. In the emergency room, her potassium was 6.4. Creatinine was elevated at 1.92 with an elevated BUN of 50. GFR was 25. Initial troponin was 0.11. The patient is a DNR/DNI. The remainder of the chemistries looked fairly good. Dr. Gao was called regarding the patient on Sunday and she did order labs; however, the labs were not drawn. Dr. Gao plans to discuss this with the [place] [facility]. The patient does have a history of atrial fibrillation and is on digoxin. She has depression and is taking duloxetine as well as aripiprazole, which I believe is Ambien. She has dementia and is taking Aricept. She has hypomagnesemia and is taking a magnesium supplement. She has gastroesophageal reflux disease and is taking pantoprazole. She is anticoagulated with rivaroxaban. She has a history of hypertension and is taking lisinopril. This has been held due to her hypotensive state. LAB WORK: From today, sodium is high at 146 with the normal range being 136 to 145. Potassium is now normal at 5.3 with the normal range being 3.3 to 5.3. BUN and creatinine are 32 and 1.33 respectively which have improved from her ER labs. Calcium is 7.9. Troponin was normal at 0.07. The patient was initially sleeping when I first went into the room, but when I returned, she woke up, she was alert and oriented and answers questions appropriately and recognized who I was. She states she feels really weak, but she denies any pain with the exception of her chronic back pain. I will addend the exam. I do not have her vital signs in front of me. IMPRESSION: 1. Dehydration secondary to diarrhea, this is improved. 2. Hyperkalemia, resolved. 3. Hypotension, improved with IV fluids. We are holding her antihypertensive medicines. 4. History of atrial fibrillation. She is on digoxin and is in a sinus bradycardia with a first-degree AV block on the EKG. 5. Elevated troponin, now normal. 6. Depression, stable with duloxetine and Abilify. 7. Dementia, on donepezil. 8. Gastroesophageal reflux disease, stable and on PPI therapy. 9. Hypomagnesemia, on magnesium oxide. 10.History of hypertension. She was on metoprolol as well as spironolactone and lisinopril. These are all held at this time due to hypotension and bradycardia. We will continue to follow and plan for discharge back to the [place] [facility] when the patient is feeling better and her lab work has stabilized. /[id number]/MODL
[2019-12-28] MEDS ORDERED: ARIPiprazole 5 MG Tab PO SCH ×2 (21:00)
[2019-12-28] MEDS: Calcium Carbonate 500 MG Tab.Chew PO SCH (21:15)
[2019-12-28] MEDS: Donepezil 10 MG Tab PO SCH (21:16)
[2019-12-28] MEDS: Rivaroxaban 10 MG Tab PO SCH (21:17)
[2019-12-28] MEDS: Pantoprazole 40 MG Tab.CR PO SCH (21:17)
[2019-12-28] MEDS: DULoxetine 30 MG Cap PO SCH (21:18)
[2019-12-29] MEDS: Acetaminophen 500 MG Tab PO PRN (00:55)
[2019-12-29] MEDS: traMADol 50 MG Tab PO PRN (02:43)
[2019-12-29] MEDS: Sodium Chloride 0.9% 1,000 ML IV SCH (07:44)
[2019-12-29] MEDS: buPROPion 150 MG Tab.ER PO SCH (08:20)
[2019-12-29] MEDS: Sulfamethoxazole/Trimethoprim 800-160 MG Tab PO SCH (08:20)
[2019-12-29] MEDS: Furosemide 40 MG Tab PO SCH (08:20)
[2019-12-29] MEDS: Magnesium Oxide 500 MG Tab PO SCH (08:20)
[2019-12-29] MEDS: traMADol 50 MG Tab PO SCH ×2 (08:20→13:32)
[2019-12-29] MEDS: Lisinopril 5 MG Tab PO SCH (08:21)
[2019-12-29] MEDS: Metoprolol Succinate 25 MG Tab.ER PO SCH (08:21)
--- NOTE | 2019-12-29 08:54 | PCM.DCSUM1 ---
Discharge Summary - Hospital Course Free Text/Narrative:: Admission Date: 12/27/2019 Discharge Date: 12/29/2019 Disposition: SNF, [facility], [place] ALYSSA CODE STATUS: DNR/DNI Admission Diagnoses: Weakness Dizziness Pre-renal SLOANE, secondary to dehydration from diarrhea UTI Hyperkalemia Hypotension Elevated troponin Discharge Diagnoses: Weakness, improving Dizziness, resolved Pre-renal SLOANE, secondary to dehydration from diarrhea, improving UTI, Culture pending, discharging on Bactrim DS for total of 7 days. Hyperkalemia, resolved after one dose of kayexelate and discontinuation of spironolactone Hypotension, resolved Elevated troponin x 1, unclear etiology, perhaps secondary to hyperkalemia, non- cardiac, clinically insignificant Secondary Diagnoses: Atrial fibrillation Back Pain, chronic Congestive Heart Failure, unspecified Constipation Dementia Peripheral edema Acid Reflux Hypomagnesemia Iron Deficiency Anemia Depression Pulmonary Hypertension Medication changes at discharge: 1. Discontinue spironolactone 2. Bactrim DS 1 tab PO BID x 6 more days Shayla is being discharged from an observation stay for dehydration and dizziness. I was contacted by the [facility] on 12/25 stating Shayla was acting "strange" and had a near fall. She presented to the ER then on 12/26 via ambulance for the above noted concerns. She reports she had diarrhea for 5 days prior to presentation to the ER but no vomiting. She was found to have the following significant findings in the ER: Hypotension: BP 82/40 Bradycardia: HR 50's Hyperkalemia: 6.4 Pre-renal SLOANE: BUN 50, Cr 1.92 UTI: 30-40 WBC's, Trace KE, Positive Nitrite, many bacteria Elevated troponin: 0.1 x 1, repeat 0.07 x 2, no chest pain or cardiac concerns She was given 1 liter of IVF's and potassium rechecked at 6.1 and so she was given kayexelate x 1 dose and her spironolactone was held. Also held were her lisinopril and her metoprolol due to bradycardia and hypotension. She was initially started by the ER provider on Gentamycin IV for her UTI but this was switched to Bactrim DS 1 tab PO BID on 12/27. She states that while she continues to feel weak, she overall feels much better. Her renal function has improved (BUN 24, Cr 1.25) Potassium has normalized (4.7). Dig level is therapeutic at 0.93 (reference range 0.3 - 2) Her spironolactone will be discontinued at discharge. She is tolerating PO intake. She has had normal bowel movements, diarrhea has resolved. She will be discharged to have PT and OT at the [facility] in [place]. Follow-up on next [facility] rounds. Diagnosis: Stroke: No Modified Deposit Scale: No Signif.Disability Despite Sympt.Able to Carry Out Usual Act./Duties Modified Deposit Scale Score: 1 - Discharge Data Discharge Date: 12/29/19 Discharge Disposition: DC/Tfer to SNF 03 Condition: Good - Referral to Home Health Primary Care Physician: PCP Unobtainable - Patient Instructions Diet: Regular Diet as Tolerated - Discharge Plan *PRESCRIPTION DRUG MONITORING PROGRAM REVIEWED*: No *COPY OF PRESCRIPTION DRUG MONITORING REPORT IN PATIENT DEVORAH: No Home Medications: Home Meds Acetaminophen 500 mg PO QID PRN 05/26/19 [History] DULoxetine [Cymbalta] 60 mg PO DAILY 05/26/19 [History] Digoxin 125 mcg PO DAILY 05/26/19 [History] Docusate Sodium 100 mg PO BID PRN 05/26/19 [History] Donepezil HCl 10 mg PO DAILY 05/26/19 [History] Ferrous Sulfate 325 mg PO Q48H 05/26/19 [History] Furosemide 40 mg PO DAILY 05/26/19 [History] Magnesium Oxide 400 mg PO DAILY 05/26/19 [History] Metoprolol Succinate 12.5 mg PO DAILY 05/26/19 [History] Mv,Dimitri,Iron,Mn/Folic Acid/Chol [Hair, Skin and Nails Capsule] 2 tab PO DAILY 11/08 [History] Pantoprazole Sodium 40 mg PO [id number] 05/26/19 [History] Rivaroxaban [Xarelto] 15 mg PO [id number] 05/26/19 [History] Spironolactone [Aldactone] 12.5 mg PO DAILY 05/26/19 [History] buPROPion HCL [Wellbutrin Xl] 150 mg PO DAILY 05/26/19 [History] lisinopriL [Lisinopril] 2.5 mg PO DAILY 05/26/19 [History] traMADol HCl [Tramadol HCl] 50 mg PO TID 11/04/19 [History] ARIPiprazole [Abilify] 2 mg PO [id number] 12/27/19 [History] Acetaminophen [Tylenol Extra Strength] 500 mg PO BID PRN 12/27/19 [History] Albuterol/Ipratropium [DuoNeb 3.0-0.5 MG/3 ML] 3 ml INH Q4H PRN 12/27/19 [ History] Calcium Carbonate [Calcium] 500 mg PO BEDTIME 12/27/19 [History] Calcium Carbonate [Calcium] 500 mg PO BID PRN 12/27/19 [History] Carboxymethylcellulose/Lytes [John-Stir Oral [place]] 1 - 2 spray PO QID PRN [History] Trolamine Salicylate/Aloe Vera [Aspercreme 10% Cream] 1 applic TOP BID PRN 12/26 [History] Urea [Urea 20% Crm] 1 applic TOP DAILY 12/27/19 [History] buPROPion HCL [Wellbutrin Xl] 300 mg PO DAILY 12/27/19 [History] guaiFENesin/Dextromethorphan [Guaifenesin-Dm 100-10 mg/5 ml] 10 ml PO Q4H PRN [History] traMADol [Ultram] 50 mg PO BEDTIME 12/27/19 [History] traMADol [Ultram] 50 mg PO DAILY PRN 12/27/19 [History] Forms: ED Department Discharge - Discharge Summary/Plan Comment DC Time >30 min.: Yes (35 minutes) - General Info Date of Service: 12/29/19 Admission Dx/Problem (Free Text: Weakness, hyperkalemia, hypotension - Patient Data Vitals - Most Recent: Last Vital Signs Temp 97.7 F 12/29/19 06:54 Pulse 64 12/29/19 08:21 Resp 16 12/29/19 06:54 BP 117/61 12/29/19 08:21 Pulse Ox 93 L 12/29/19 06:54 Weight - Most Recent: 158 lb 14.4 oz I&O - Last 24 hours: Intake & Output 12/28/19 12/29/19 12/29/19 22:59 06:59 14:59 Intake Total 1515 1085 Balance 1515 1085 Lab Results - Last 24 hrs: Laboratory Results - last 24 hr 12/28/19 Range/Units 07:45 Sodium 146 H (136-145) mmol/L Potassium 5.3 (3.3-5.3) mmol/L Chloride 112 (98-115) mmol/L Carbon Dioxide 25.9 (21.0-32.0) mmol/L Anion Gap 13.4 (5-15) mmol/L BUN 32 H (6-25) mg/dL Creatinine 1.33 H (0.51-1.17) mg/dL Est Cr Clr Drug Dosing 33.16 mL/min Estimated GFR (MDRD) 39 mL/min Glucose 84 (75 - 99) mg/dL Calcium 7.9 L (8.7-10.3) mg/dL Troponin I 0.07 (0.00-0.070) ng/mL SANDRA Results - Last 24 hrs: Microbiology 12/27/19 12:15 Urine Culture - Final Urine, Catheterized Med Orders - Current: Current Medications Acetaminophen (Tylenol Extra Strength) 500 mg PO Q6H PRN PRN Reason: Fever Last Admin: 12/29/19 00:55 Dose: 500 mg Albuterol/Ipratropium (Duoneb 3.0-0.5 Mg/3 Ml) 3 ml INH Q4H PRN PRN Reason: cough/wheeze Aripiprazole (Abilify) 2.5 mg PO 2100 [facility] Last Admin: 12/28/19 21:16 Dose: 2.5 mg Bupropion HCl (Wellbutrin Xl) 450 mg PO DAILY [facility] Last Admin: 12/29/19 08:20 Dose: 450 mg Calcium Carbonate/Glycine (Tums) 500 mg PO BEDTIME [facility] Last Admin: 12/28/19 21:15 Dose: 500 mg Calcium Carbonate/Glycine (Tums) 500 mg PO BID PRN PRN Reason: gerd Digoxin (Lanoxin) 125 mcg PO DAILY@1800 [facility] Last Admin: 12/28/19 18:20 Dose: 125 mcg Docusate Sodium (Colace) 100 mg PO BID PRN PRN Reason: Constipation Donepezil HCl (Aricept) 10 mg PO BEDTIME [facility] Last Admin: 12/28/19 21:16 Dose: 10 mg Duloxetine HCl (Cymbalta) 60 mg PO DAILY@2000 [facility] Last Admin: 12/28/19 21:18 Dose: 60 mg Ferrous Sulfate (Ferrous Sulfate) 325 mg PO Q48H [facility] Last Admin: 12/28/19 09:42 Dose: 325 mg Furosemide (Lasix) 40 mg PO DAILY [facility] Last Admin: 12/29/19 08:20 Dose: 40 mg Guaifenesin/Phenylephrine HCl (Robitussin Dm) 10 ml PO Q4H PRN PRN Reason: Cough Sodium Chloride (Normal Saline) 1,000 mls @ 125 mls/hr IV ASDIRECTED [facility] Last Admin: 12/29/19 07:44 Dose: 125 mls/hr Lisinopril (Prinivil) 2.5 mg PO DAILY [facility] Last Admin: 12/29/19 08:21 Dose: 2.5 mg Magnesium Oxide (Magnesium Oxide) 500 mg PO DAILY [facility] Last Admin: 12/29/19 08:20 Dose: 500 mg Metoprolol Succinate (Toprol Xl) 12.5 mg PO DAILY [facility] Last Admin: 12/29/19 08:21 Dose: 12.5 mg Non-Formulary Medication (Aripiprazole) 2 mg PO [id number] [facility] Pantoprazole Sodium (Protonix) 40 mg PO 1999 [facility] Last Admin: 12/28/19 21:17 Dose: 40 mg Rivaroxaban (Xarelto) 15 mg PO 1999 [facility] Last Admin: 12/28/19 21:17 Dose: 15 mg Saliva Substitute (John-Stir Oral [place]) 0 ml MUCMEM QID PRN PRN Reason: dry throat Tramadol HCl (Ultram) 50 mg PO DAILY PRN PRN Reason: Pain Last Admin: 12/29/19 02:43 Dose: 50 mg Tramadol HCl (Ultram) 50 mg PO TID [facility] Last Admin: 12/29/19 08:20 Dose: 50 mg Trimethoprim/Sulfamethoxazole (Septra Ds) 1 tab PO BID [facility] Last Admin: 12/29/19 08:20 Dose: 1 tab Trolamine Salicylate (Aspercreme 10%) 0 gm TOP BID PRN PRN Reason: muscle pain Urea (Urea 20% Crm) 0 gm TOP DAILY [facility] Last Admin: 12/29/19 08:26 Dose: 1 applic Discontinued Medications Acetaminophen (Tylenol) 650 mg PO Q4H PRN PRN Reason: analgesia/fever Acetaminophen (Tylenol Extra Strength) 1,000 mg PO DAILY PRN PRN Reason: Pain Acetaminophen (Tylenol) 650 mg PO Q4H PRN PRN Reason: analgesia/fever Acetaminophen (Tylenol Extra Strength) 500 mg PO BID PRN PRN Reason: Pain Aripiprazole (Abilify) 2.5 mg PO DAILY [facility] Bupropion HCl (Wellbutrin Xl) 300 mg PO DAILY [facility] Digoxin (Lanoxin) 125 mcg PO DAILY [facility] Docusate Sodium (Colace) 100 mg PO DAILY PRN PRN Reason: Constipation Docusate Sodium (Colace) 100 mg PO BID PRN PRN Reason: Constipation Donepezil HCl (Aricept) 10 mg PO DAILY [facility] Duloxetine HCl (Cymbalta) 60 mg PO DAILY [facility] Ferrous Sulfate (Ferrous Sulfate) 325 mg PO Q48H [facility] Last Admin: 12/27/19 13:51 Dose: 325 mg Furosemide (Lasix) 40 mg PO DAILY [facility] Guaifenesin (Mucinex) 600 mg PO Q12H PRN PRN Reason: Congestion Sodium Chloride (Normal Saline) 1,000 mls @ 999 mls/hr IV .BOLUS ONE Stop: 12/27/19 11:28 Last Admin: 12/27/19 10:30 Dose: 999 mls/hr Sodium Chloride (Normal Saline) Confirm Administered Dose 1,000 mls @ as directed .ROUTE .STK-MED ONE Stop: 12/27/19 10:31 Last Admin: 12/27/19 12:53 Dose: Not Given Gentamicin Sulfate 60 mg/ (Sodium Chloride) 101.5 mls @ 200 mls/hr IV ONETIME ONE Stop: 12/27/19 13:08 Last Admin: 12/27/19 13:51 Dose: 200 mls/hr Lisinopril (Prinivil) 2.5 mg PO DAILY [facility] Non-Formulary Medication (Aripiprazole) 2 mg PO DAILY [facility] Non-Formulary Medication (Famotidine/Ca Carb/Mag Hydrox [Tums Dual Action]) 1 tab PO QIDACANDBED PRN PRN Reason: Heartburn Non-Formulary Medication (Guaifenesin/Dextromethorphan [Safetussin Dm]) 5 ml PO Q4H PRN PRN Reason: Cough Non-Formulary Medication (Magnesium Oxide [Magnesium Oxide]) 400 mg PO DAILY [facility] Non-Formulary Medication (Mv,Dimitri,Iron,Mn/Folic Acid/Chol [Hair, Skin And Nails Capsule]) 2 tab PO DAILY [facility] Non-Formulary Medication (Rivaroxaban) 15 mg PO DAILY [facility] Pantoprazole Sodium (Protonix) 40 mg PO DAILY [facility] Saliva Substitute (John-Stir Oral [place]) 0 ml MUCMEM QID PRN PRN Reason: Dryness Sodium Polystyrene Sulfonate (Kayexalate) 15 gm PO ONETIME ONE Stop: 12/27/19 12:49 Last Admin: 12/27/19 13:52 Dose: 15 gm Spironolactone (Aldactone) 12.5 mg PO DAILY [facility] Tizanidine HCl (Zanaflex) 4 mg PO BEDTIME PRN PRN Reason: Other Tramadol HCl (Ultram) 50 mg PO ASDIRECTED PRN PRN Reason: Pain Tramadol HCl (Ultram) 50 mg PO TID [facility] Last Admin: 12/27/19 13:52 Dose: 50 mg Tramadol HCl (Ultram) 100 mg PO BEDTIME [facility] Tramadol HCl (Ultram) 50 mg PO BEDTIME [facility] - Exam General: Reports: Alert, Oriented, Cooperative, No Acute Distress Lungs: Reports: Clear to Auscultation, Normal Respiratory Effort Cardiovascular: Reports: Irregular Rhythm, Murmurs (2/6 systolic murmur) GI/Abdominal Exam: Normal Bowel Sounds
[2019-12-29 09:46] LABS: ANION GAP 16.2 mmol/L (5-15)
== END 2019-12-29 14:35 ==
LOC: KA.ED 10:11 → KA.MS 11:45
PROVIDERS: ADMIT Internal Medicine; ATTEND Internal Medicine
DX: R53.1 Weakness (principal); R42 Dizziness and giddiness; R19.7 Diarrhea, unspecified; E86.0 Dehydration; N39.0 Urinary tract infection, site not specified; E87.5 Hyperkalemia; I95.9 Hypotension, unspecified; I48.91 Unspecified atrial fibrillation; N17.9 Acute kidney failure, unspecified; G89.29 Other chronic pain; M54.9 Dorsalgia, unspecified; R00.1 Bradycardia, unspecified; I44.0 Atrioventricular block, first degree; I11.0 Hypertensive heart disease with heart failure; K59.00 Constipation, unspecified; G30.9 Alzheimer's disease, unspecified; F02.80 Dementia in other diseases classified elsewhere, unspecified severity, without behavioral disturbance, psychotic disturbance, mood disturbance, and anxiety; I50.9 Heart failure, unspecified; F41.9 Anxiety disorder, unspecified; R60.9 Edema, unspecified; D50.9 Iron deficiency anemia, unspecified; I27.20 Pulmonary hypertension, unspecified; R79.89 Other specified abnormal findings of blood chemistry; F32.9 Major depressive disorder, single episode, unspecified; F03.90 Unspecified dementia, unspecified severity, without behavioral disturbance, psychotic disturbance, mood disturbance, and anxiety; K21.9 Gastro-esophageal reflux disease without esophagitis; E83.42 Hypomagnesemia; Z79.899 Other long term (current) drug therapy; Z79.01 Long term (current) use of anticoagulants
CPT/HCPCS: 36415; 80048; 80053; 80162; 81001; 84132; 84484; 85025; 87077; 87086; 87088; 87186; 93005; 96361; 96365; 99220; 99285; A9270; G0378; J1580; J7030; J7050; 96360

== ENCOUNTER 2020-01-10 13:31 | Emergency (ER) | payer MEDICARE, BC, MEDICAID ==
--- NOTE | 2020-01-10 13:48 | EDM.PDOC ---
ED HPI GENERAL MEDICAL PROBLEM - General Stated Complaint: HIGH POTASSIUM Time Seen by Provider: 01/10/20 13:37 Source of Information: Reports: Patient, Family (son), Provider - History of Present Illness INITIAL COMMENTS - FREE TEXT/NARRATIVE: Patient brought from [place], by her son, with hyperkalemia. Dr. Rg had called me earlier with information on patient coming over. Patient had a UTI (per son) and was found to have high potassium 2 weeks ago. She was treated for dehydration and potassium dropped from 6.4 to 4.7. Recently she has been feeling fine but a lab today (drawn yesterday) shows potassium is going back up (6.2 from 5.4 four days earlier). Patient is still feeling fine but son says she seems a little more quiet and subdued than usual. Dr. Rg would like her to be taken to [place] for nephrology consultation for hyperkalemia and acute renal failure. Bilateral Shoulder Pain Score (Numeric/FACES): 4 - Related Data Allergies Allergy/AdvReac Type Severity Reaction Status Date / Time ceftriaxone Allergy Cannot Verified 01/10/20 14:12 Remember hydrocodone Allergy Cannot Verified 01/10/20 14:12 Remember ibuprofen Allergy Cannot Verified 01/10/20 14:12 Remember ofloxacin Allergy Cannot Verified 01/10/20 14:12 Remember propoxyphene Allergy Cannot Verified 01/10/20 14:12 Remember Home Meds: Home Meds Acetaminophen 500 mg PO QID PRN 05/26/19 [History] DULoxetine [Cymbalta] 60 mg PO DAILY 05/26/19 [History] Digoxin 125 mcg PO DAILY 05/26/19 [History] Docusate Sodium 100 mg PO BID PRN 05/26/19 [History] Donepezil HCl 10 mg PO DAILY 05/26/19 [History] Ferrous Sulfate 325 mg PO Q48H 05/26/19 [History] Furosemide 40 mg PO DAILY 05/26/19 [History] Magnesium Oxide 400 mg PO DAILY 05/26/19 [History] Metoprolol Succinate 12.5 mg PO DAILY 05/26/19 [History] Mv,Dimitri,Iron,Mn/Folic Acid/Chol [Hair, Skin and Nails Capsule] 2 tab PO DAILY 05/26/19 [History] Pantoprazole Sodium 40 mg PO [id number] 05/26/19 [History] Rivaroxaban [Xarelto] 15 mg PO [id number] 05/26/19 [History] buPROPion HCL [Wellbutrin Xl] 150 mg PO DAILY 05/26/19 [History] lisinopriL [Lisinopril] 2.5 mg PO DAILY 05/26/19 [History] traMADol HCl [Tramadol HCl] 50 mg PO TID 05/26/19 [History] ARIPiprazole [Abilify] 2 mg PO [id number] 12/27/19 [History] Acetaminophen [Tylenol Extra Strength] 500 mg PO BID PRN 12/27/19 [History] Albuterol/Ipratropium [DuoNeb 3.0-0.5 MG/3 ML] 3 ml INH Q4H PRN 12/27/19 [History] Calcium Carbonate [Calcium] 500 mg PO BEDTIME 12/27/19 [History] Calcium Carbonate [Calcium] 500 mg PO BID PRN 12/27/19 [History] Carboxymethylcellulose/Lytes [John-Stir Oral Ralph] 1 - 2 spray PO QID PRN 12/27/19 [History] Trolamine Salicylate/Aloe Vera [Aspercreme 10% Cream] 1 applic TOP BID PRN 12/27/19 [History] Urea [Urea 20% Crm] 1 applic TOP DAILY 12/27/19 [History] buPROPion HCL [Wellbutrin Xl] 300 mg PO DAILY 12/27/19 [History] guaiFENesin/Dextromethorphan [Guaifenesin-Dm 100-10 mg/5 ml] 10 ml PO Q4H PRN 12/27/19 [History] traMADol [Ultram] 50 mg PO BEDTIME 12/27/19 [History] traMADol [Ultram] 50 mg PO DAILY PRN 12/27/19 [History] traMADol HCl [Tramadol HCl] 50 mg PO BEDTIME 01/10/20 [History] Past Medical History HEENT History: Reports: Cataract, Impaired Vision Cardiovascular History: Reports: Afib, Arrhythmia, Heart Failure, Heart Murmur, High Cholesterol, Hypertension, SOB on Exertion Respiratory History: Reports: None Gastrointestinal History: Reports: Cholelithiasis, Chronic Diarrhea, GERD, GI Bleed Genitourinary History: Reports: None, Urinary Incontinence, UTI, Recurrent [employer] History: Reports: Musculoskeletal History: Reports: Back Pain, Chronic, Fibromyalgia, Neck Pain, Chronic, Osteoporosis Neurological History: Reports: Alzheimers Disease, Concussion, TIA Psychiatric History: Reports: Anxiety, Depression Endocrine/Metabolic History: Reports: Osteoporosis Hematologic History: Reports: Anemia, Blood Transfusion(s) Oncologic (Cancer) History: Reports: None Dermatologic History: Reports: None - Infectious Disease History Infectious Disease History: Reports: Chicken Pox, Measles, MRSA, Mumps - Past Surgical History HEENT Surgical History: Reports: Cataract Surgery, Oral Surgery Cardiovascular Surgical History: Reports: None Respiratory Surgical History: Reports: None GI Surgical History: Reports: Appendectomy, Bariatric Procedure, Cholecystectomy, Colonoscopy, EGD, Lysis of Adhesions Female Surgical History: Reports: Cystectomy, Hysterectomy, Salpingo- Oophorectomy Endocrine Surgical History: Reports: None Neurological Surgical History: Reports: Lumbar Spine Other Neurological Surgeries/Procedures: jose in lumbar region - history of mrsa 5 fusions Musculoskeletal Surgical History: Reports: Knee Replacement, Shoulder Surgery Other Musculoskeletal Surgeries/Procedures:: right shoulder reconstructed. right knee replacement Oncologic Surgical History: Reports: None Dermatological Surgical History: Reports: None Social & Family History - Family History Family Medical History: Noncontributory - Caffeine Use Caffeine Use: Reports: Coffee, Soda ED ROS GENERAL - Review of Systems Review Of Systems: See Below Constitutional: Reports: Fatigue. Denies: Fever, Chills, Malaise, Weakness HEENT: Denies: Ear Pain, Throat Pain, Vision Change Respiratory: Denies: Shortness of Breath, Cough Cardiovascular: Denies: Chest Pain, Lightheadedness, Syncope GI/Abdominal: Denies: Abdominal Pain, Nausea, Vomiting : Denies: Dysuria, Flank Pain Musculoskeletal: Reports: No Symptoms Skin: Denies: Cyanosis, Jaundice, Mottled, Pallor, Diaphoresis Neurological: Denies: Confusion, Dizziness, Headache, Seizure, Syncope, Trouble Speaking, Difficulty Walking Psychiatric: Denies: Agitation, Anxiety, Confusion ED EXAM, RENAL/ - Physical Exam Exam: See Below Exam Limited By: No Limitations General Appearance: Alert, WD/WN, No Apparent Distress Eye Exam: Bilateral Eye: EOMI, Normal Inspection, PERRL Ears: Normal External Exam, Hearing Grossly Normal Nose: Normal Inspection, No Blood Throat/Mouth: Normal Inspection, Normal Lips, Normal Voice, No Airway Compromise Head: Atraumatic, Normocephalic Neck: Normal Inspection, Full Range of Motion Respiratory/Chest: No Respiratory Distress, Lungs Clear, Normal Breath Sounds, No Accessory Muscle Use Cardiovascular: Regular Rate, Rhythm, No Murmur GI/Abdominal: Normal Bowel Sounds, Soft, Non-Tender, No Organomegaly, No Distention Back Exam: Normal Inspection, Full Range of Motion. No: CVA Tenderness (L), CVA Tenderness (R) Extremities: Normal Inspection Neurological: Alert, Oriented (initially thought it was Sunday instead of Sunday.), Normal Cognition, No Motor/Sensory Deficits Psychiatric: Normal Affect (responds appropriately but maybe a little flat affect; I don't know her baseline.), Normal Mood Skin Exam: Warm, Dry, Intact, Normal Color, No Rash Course - Vital Signs Last Recorded V/S: Last Vital Signs Temp 96.9 F 01/10/20 14:02 Pulse 49 L 01/10/20 14:30 Resp 18 01/10/20 14:30 BP 108/37 L 01/10/20 14:30 Pulse Ox 97 01/10/20 14:30 - Orders/Labs/Meds Orders: Active Orders 24 hr Category Date Time Status EKG Documentation Completion [RC] ASDIRECTED Care 01/10/20 13:42 Ordered Sodium Chloride 0.9% @ 100 MLS/HR(500ml) Med 01/10/20 14:45 Ordered Sodium Chloride 0.9% [Normal Saline] 500 ml IV ASDIRECTED EKG 12 Lead [EK] Stat Ther 01/10/20 13:42 Ordered Medication Orders Sodium Chloride (Normal Saline) 500 mls @ 100 mls/hr IV ASDIRECTED [facility] Last Admin: 01/10/20 14:41 Dose: 100 mls/hr Documented by: DANDRE Labs: Laboratory Tests 01/10/20 01/10/20 Range/Units 13:56 13:56 WBC 6.42 (5.00-10.00) 10^3/uL RBC 3.56 L (3.80-5.50) 10^6/uL Hgb 10.6 L (12.0-16.0) g/dL Hct 35.5 L (37.0-47.0) % MCV 99.7 H (82.0-92.0) fL MCH 29.8 (27.0-31.0) pg MCHC 29.9 L (32.0-36.0) g/dL RDW 16.5 H (11.5-14.5) % Plt Count 264 (150-400) 10^3/uL MPV 8.3 (7.4-10.4) fL Immature Gran % (Auto) 0.2 (0.0-5.0) % Neut % (Auto) 66.0 (50.0-70.0) % Lymph % (Auto) 21.7 (20.0-40.0) % [place] % (Auto) 11.1 H (2.0-8.0) % Eos % (Auto) 0.5 L (1.0-3.0) % Baso % (Auto) 0.5 (0.0-1.0) % Neut # (Auto) 4.25 (2.50-7.00) 10^3/uL Lymph # (Auto) 1.39 (1.00-4.00) 10^3/uL [place] # (Auto) 0.71 (0.10-0.80) 10^3/uL Eos # (Auto) 0.03 L (0.10-0.30) 10^3/uL Baso # (Auto) 0.03 (0.00-0.10) 10^3/uL Immature Gran # (Auto) 0.01 (0.00-0.50) 10^3/uL Sodium 139 (136-145) mmol/L Potassium 6.2 H D (3.3-5.3) mmol/L Chloride 106 (98-115) mmol/L Carbon Dioxide 26.4 (21.0-32.0) mmol/L Anion Gap 12.8 (5-15) mmol/L BUN 39 H (6-25) mg/dL Creatinine 1.55 H (0.51-1.17) mg/dL Est Cr Clr Drug Dosing 28.45 mL/min Estimated GFR (MDRD) 32 mL/min Glucose 112 H (75 - 99) mg/dL Calcium 8.5 L (8.7-10.3) mg/dL Meds: Medications Generic Name Dose Route Start Last Admin Trade Name Freq PRN Reason Stop Dose Admin Sodium Chloride 500 mls @ 100 mls/hr 01/10/20 14:45 01/10/20 14:41 Normal Saline IV 100 mls/hr ASDIRECTED [facility] Administration Discontinued Medications Generic Name Dose Route Start Last Admin Trade Name Megan PRN Reason Stop Dose Admin Sodium Polystyrene Sulfonate 15 gm 01/10/20 14:48 01/10/20 14:55 Kayexalate PO 01/10/20 14:49 15 gm ONETIME ONE Administration - Re-Assessments/Exams Free Text/Narrative Re-Assessment/Exam: 01/10/20 14:54 Potassium is 6.2 as it was yesterday. It was 5.4 on 01/04, 4.7 on 12/28, 6.4 on 12/26. Creatinine and BUN also elevated. EKG shows bradycardia but no T-wave abnormalities. I discussed case with Dr. Kapoor, hospitalist at [facility] who accepted for transfer and nephrology consult. Discussed findings and treatment plan with patient and her son who agree with plan. Pt given 500cc NS bolus and Kayexalate 15 gm po as advised by Dr. Kapoor. 01/10/20 15:10 Patient feeling fine just sleepy. Discharged to [place] in stable condition. Departure - Departure Time of Disposition: 15:12 Disposition: DC/Tfer to Acute Hospital 02 Condition: Good Clinical Impression: Acute hyperkalemia ARF (acute renal failure) Qualifiers: Acute renal failure type: unspecified Qualified Code(s): N17.9 - Acute kidney failure, unspecified - Discharge Information Referrals: Rossy Quniteros MD [Primary Care Provider] - Sepsis Event Note (ED) - Focused Exam Vital Signs: Vital Signs Temp Pulse Resp BP Pulse Ox 01/10/20 14:30 49 L 18 108/37 L 97 01/10/20 14:02 96.9 F 53 L 18 109/35 L 98 - My Orders Last 24 Hours: My Active Orders 01/10/20 13:42 EKG Documentation Completion [RC] ASDIRECTED EKG 12 Lead [EK] Stat 01/10/20 14:45 Sodium Chloride 0.9% @ 100 MLS/HR(500ml) Sodium Chloride 0.9% [Normal Saline] 500 ml IV ASDIRECTED - Assessment/Plan Last 24 Hours: My Active Orders 01/10/20 13:42 EKG Documentation Completion [RC] ASDIRECTED EKG 12 Lead [EK] Stat 01/10/20 14:45 Sodium Chloride 0.9% @ 100 MLS/HR(500ml) Sodium Chloride 0.9% [Normal Saline] 500 ml IV ASDIRECTED
[2020-01-10 14:26] LABS: ANION GAP 12.8 mmol/L (5-15)
[2020-01-10] MEDS ORDERED: Sodium Chloride 0.9% 500 ML IV SCH (14:45)
[2020-01-10] MEDS ORDERED: Sodium Polystyrene Sulfonate 15 GM/60 ML Susp 60 ML Bot PO ONE (14:48)
== END 2020-01-10 16:15 ==
LOC: KA.ED 13:31
DX: N17.9 Acute kidney failure, unspecified (principal); E87.5 Hyperkalemia; I48.91 Unspecified atrial fibrillation; I11.0 Hypertensive heart disease with heart failure; I50.9 Heart failure, unspecified; K21.9 Gastro-esophageal reflux disease without esophagitis; G30.9 Alzheimer's disease, unspecified; F02.80 Dementia in other diseases classified elsewhere, unspecified severity, without behavioral disturbance, psychotic disturbance, mood disturbance, and anxiety; F41.9 Anxiety disorder, unspecified; F32.9 Major depressive disorder, single episode, unspecified; Z79.899 Other long term (current) drug therapy; Z88.1 Allergy status to other antibiotic agents; Z88.5 Allergy status to narcotic agent; Z88.6 Allergy status to analgesic agent; Z79.01 Long term (current) use of anticoagulants; Z86.73 Personal history of transient ischemic attack (TIA), and cerebral infarction without residual deficits
CPT/HCPCS: 80048; 85025; 93005; 99284; 99285-25; A9270-GY; J7040

== ENCOUNTER 2020-02-17 15:32 | Emergency (ER) | payer MEDICARE, BC, MEDICAID ==
[2020-02-17] MEDS ORDERED: Sodium Chloride 0.9% 10 ML Syringe FLUSH PRN (15:42)
--- NOTE | 2020-02-17 15:50 | EDM.PDOC ---
ED HPI GENERAL MEDICAL PROBLEM - General Chief Complaint: General Stated Complaint: Short of breath Time Seen by Provider: 02/17/20 15:40 Source of Information: Reports: Patient, EMS, EMS Notes Reviewed, Correction Records History Limitations: Reports: No Limitations - History of Present Illness INITIAL COMMENTS - FREE TEXT/NARRATIVE: Patient is a 80-year-old female who presents to the emergency department this afternoon via EMS from [address] [place] [address] with a complaint of shortness of breath, hypoxia, and weakness. Patient was found to have anemia and hyperkalemia on blood work performed today at the nursing facility. Oxygen saturation was said to be in the low 80s on nasal cannula. However, during transport, EMS recorded pulse ox at 95 and 96% on 4 L nasal cannula. Patient was seen here on January 09 for same symptoms and found to have renal insufficiency. Patient was transferred to [facility] for nephrology evaluation. Patient denies chest pain, fever, nausea, vomiting, diarrhea, headache, covid exposure, blood in stool, or any trauma. Onset: Gradual Duration: Day(s): Severity: Mild Improves with: Reports: None Worsens with: Reports: None Associated Symptoms: Reports: Shortness of Breath. Denies: Chest Pain, Cough, Diaphoresis, Fever/Chills, Nausea/Vomiting - Related Data Allergies Allergy/AdvReac Type Severity Reaction Status Date / Time ceftriaxone Allergy Cannot Verified 01/10/20 14:12 Remember hydrocodone Allergy Cannot Verified 01/10/20 14:12 Remember ibuprofen Allergy Cannot Verified 01/10/20 14:12 Remember ofloxacin Allergy Cannot Verified 01/10/20 14:12 Remember propoxyphene Allergy Cannot Verified 01/10/20 14:12 Remember Home Meds: Home Meds Acetaminophen 500 mg PO QID 05/26/19 [History] DULoxetine [Cymbalta] 60 mg PO DAILY 05/26/19 [History] Digoxin 125 mcg PO DAILY 05/26/19 [History] Docusate Sodium 100 mg PO BID PRN 05/26/19 [History] Donepezil HCl 10 mg PO DAILY 05/26/19 [History] Ferrous Sulfate 325 mg PO Q48H 05/26/19 [History] Furosemide 40 mg PO DAILY 05/26/19 [History] Magnesium Oxide 400 mg PO DAILY 05/26/19 [History] Metoprolol Succinate 12.5 mg PO DAILY 05/26/19 [History] Mv,Dimitri,Iron,Mn/Folic Acid/Chol [Hair, Skin and Nails Capsule] 2 tab PO DAILY 05/26/19 [History] Pantoprazole Sodium 40 mg PO [id number] 05/26/19 [History] Rivaroxaban [Xarelto] 15 mg PO [id number] 05/26/19 [History] buPROPion HCL [Wellbutrin Xl] 150 mg PO DAILY 05/26/19 [History] lisinopriL [Lisinopril] 2.5 mg PO DAILY 05/26/19 [History] traMADol HCl [Tramadol HCl] 50 mg PO TID 05/26/19 [History] ARIPiprazole [Abilify] 2 mg PO [id number] 12/27/19 [History] Acetaminophen [Tylenol Extra Strength] 500 mg PO BID PRN 12/27/19 [History] Albuterol/Ipratropium [DuoNeb 3.0-0.5 MG/3 ML] 3 ml INH Q4H PRN 12/27/19 [History] Calcium Carbonate [Calcium] 500 mg PO BEDTIME 12/27/19 [History] Calcium Carbonate [Calcium] 500 mg PO BID PRN 12/27/19 [History] Carboxymethylcellulose/Lytes [John-Stir Oral Vesta] 1 - 2 spray PO QID PRN 12/27/19 [History] Trolamine Salicylate/Aloe Vera [Aspercreme 10% Cream] 1 applic TOP BID PRN 12/27/19 [History] Urea [Urea 20% Crm] 1 applic TOP DAILY 12/27/19 [History] buPROPion HCL [Wellbutrin Xl] 300 mg PO DAILY 12/27/19 [History] guaiFENesin/Dextromethorphan [Guaifenesin-Dm 100-10 mg/5 ml] 10 ml PO Q4H PRN 12/27/19 [History] traMADol [Ultram] 50 mg PO BEDTIME 12/27/19 [History] traMADol [Ultram] 50 mg PO ONETIME 12/27/19 [History] traMADol HCl [Tramadol HCl] 50 mg PO BEDTIME 01/10/20 [History] Past Medical History HEENT History: Reports: Cataract, Impaired Vision Cardiovascular History: Reports: Afib, Arrhythmia, Heart Failure, Heart Murmur, High Cholesterol, Hypertension, SOB on Exertion Other Cardiovascular History: NONRHEUMATIC MITRAL VALVE INSUFFICIENCY. RHEUMATIC TRICUSPID INSUFFICIENCY. HYPOMAGNESIUM. 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 BIPOLAR II DISORDER Endocrine/Metabolic History: Reports: Osteoporosis Hematologic History: Reports: Anemia, Blood Transfusion(s) Oncologic (Cancer) History: Reports: None Dermatologic History: Reports: None - Infectious Disease History Infectious Disease History: Reports: Chicken Pox, Measles, MRSA, Mumps Other Infectious Disease History: MRSA IN BACK POST SPINAL SURGERY - Past Surgical History HEENT Surgical History: Reports: Cataract Surgery, Oral Surgery Cardiovascular Surgical History: Reports: None Respiratory Surgical History: Reports: None GI Surgical History: Reports: Appendectomy, Bariatric Procedure, Cholecystectomy, Colonoscopy, EGD, Lysis of Adhesions Female Surgical History: Reports: Cystectomy, Hysterectomy, Salpingo- Oophorectomy Endocrine Surgical History: Reports: None Neurological Surgical History: Reports: Lumbar Spine Other Neurological Surgeries/Procedures: jose in lumbar region - history of mrsa 5 fusions Musculoskeletal Surgical History: Reports: Knee Replacement, Shoulder Surgery Other Musculoskeletal Surgeries/Procedures:: right shoulder reconstructed. right knee replacement Oncologic Surgical History: Reports: None Dermatological Surgical History: Reports: None Social & Family History - Family History Family Medical History: Noncontributory - Caffeine Use Caffeine Use: Reports: Coffee, Soda ED ROS GENERAL - Review of Systems Review Of Systems: Comprehensive ROS is negative, except as noted in HPI. Constitutional: Reports: Malaise, Decreased Appetite. Denies: Fever, Chills, Diaphoresis HEENT: Reports: No Symptoms Respiratory: Reports: Shortness of Breath Cardiovascular: Reports: No Symptoms Endocrine: Reports: No Symptoms GI/Abdominal: Reports: No Symptoms : Reports: No Symptoms Musculoskeletal: Reports: No Symptoms Skin: Reports: No Symptoms Neurological: Reports: No Symptoms Psychiatric: Reports: No Symptoms Hematologic/Lymphatic: Reports: Anemia Immunologic: Reports: No Symptoms ED EXAM, GENERAL - Physical Exam Exam: See Below Exam Limited By: No Limitations General Appearance: Alert, WD/WN, No Apparent Distress Eye Exam: Bilateral Eye: Normal Inspection Nose: Normal Inspection, Normal Mucosa, No Blood Throat/Mouth: Normal Inspection, Normal Oropharynx, No Airway Compromise Head: Atraumatic, Normocephalic Neck: Normal Inspection Respiratory/Chest: No Respiratory Distress, Lungs Clear, Normal Breath Sounds, No Accessory Muscle Use, Chest Non-Tender Cardiovascular: Regular Rate, Rhythm, No Murmur GI/Abdominal: Normal Bowel Sounds, Soft Back Exam: Normal Inspection. No: CVA Tenderness (L), CVA Tenderness (R) Extremities: Normal Inspection, No Pedal Edema Neurological: Alert, Oriented, Normal Cognition Psychiatric: Normal Affect, Normal Mood Skin Exam: Warm, Dry, Intact, Normal Color, No Rash Course - Vital Signs Last Recorded V/S: Last Vital Signs Temp 97.8 F 02/17/20 16:23 Pulse 51 L 02/17/20 16:23 Resp 16 02/17/20 16:23 BP 127/48 L 02/17/20 16:23 Pulse Ox 94 L 02/17/20 16:23 - Orders/Labs/Meds Orders: Active Orders 24 hr Category Date Time Status EKG Documentation Completion [RC] ASDIRECTED Care 02/17/20 16:26 Ordered Peripheral IV Care [RC] . DIRECTED Care 02/17/20 15:42 Ordered CULTURE URINE [RM] Stat Lab 02/17/20 16:00 Received DIGOXIN [CHEM] Stat Lab 02/17/20 17:23 Ordered Ciprofloxacin in D5W [Cipro in D5W 400 MG/200 ML] 400 Med 02/17/20 16:43 Ordered mg Premix Bag 1 bag IV ONETIME Insulin Regular, Human [HumuLIN R] 10 unit Med 02/17/20 17:15 Ordered Sodium Chloride 0.9% [Normal Saline] 99 ml IV TITRATE Sodium Chloride 0.9% [Saline Flush] Med 02/17/20 15:42 Ordered 10 ml FLUSH Q8HR PRN Sodium Chloride 3% 50 ml Med 02/17/20 17:30 Ordered IV ASDIRECTED Peripheral IV Insertion Adult [OM.PC] Routine Oth 02/17/20 15:42 Ordered EKG 12 Lead [EK] Stat Ther 02/17/20 16:25 Ordered Medication Orders Ciprofloxacin/Dextrose 400 mg/ (Premix) 200 mls @ 200 mls/hr IV ONETIME ONE Stop: 02/17/20 17:42 Last Admin: 02/17/20 16:53 Dose: 200 mls/hr Documented by: FABIO Insulin Human Regular 10 unit/ (Sodium Chloride) 99.1 mls @ 74.169 mls/hr IV TITRATE RADHA; Protocol Sodium Chloride (Sodium Chloride 3%) 50 mls @ 50 mls/hr IV ASDIRECTED RADHA Sodium Chloride (Saline Flush) 10 ml FLUSH Q8HR PRN PRN Reason: keep vein open Labs: Laboratory Tests 02/17/20 02/17/20 02/17/20 Range/Units 15:50 15:50 15:50 WBC 7.14 (5.00-10.00) 10^3/uL RBC 2.76 L (3.80-5.50) 10^6/uL Hgb 8.1 L D (12.0-16.0) g/dL Hct 27.5 L (37.0-47.0) % MCV 99.6 H (82.0-92.0) fL MCH 29.3 (27.0-31.0) pg MCHC 29.5 L (32.0-36.0) g/dL RDW 16.3 H (11.5-14.5) % Plt Count 291 (150-400) 10^3/uL MPV 9.4 (7.4-10.4) fL Immature Gran % (Auto) 0.3 (0.0-5.0) % Neut % (Auto) 63.3 (50.0-70.0) % Lymph % (Auto) 17.5 L (20.0-40.0) % Wilkin % (Auto) 17.6 H (2.0-8.0) % Eos % (Auto) 0.7 L (1.0-3.0) % Baso % (Auto) 0.6 (0.0-1.0) % Neut # (Auto) 4.52 (2.50-7.00) 10^3/uL Lymph # (Auto) 1.25 (1.00-4.00) 10^3/uL Wilkin # (Auto) 1.26 H (0.10-0.80) 10^3/uL Eos # (Auto) 0.05 L (0.10-0.30) 10^3/uL Baso # (Auto) 0.04 (0.00-0.10) 10^3/uL Immature Gran # (Auto) 0.02 (0.00-0.50) 10^3/uL Sodium 145 (136-145) mmol/L Potassium 7.6 H* (3.3-5.3) mmol/L Chloride 108 (98-115) mmol/L Carbon Dioxide 29.1 (21.0-32.0) mmol/L Anion Gap 15.5 H (5-15) mmol/L BUN 28 H (6-25) mg/dL Creatinine 1.62 H (0.51-1.17) mg/dL Est Cr Clr Drug Dosing 26.79 mL/min Estimated GFR (MDRD) 31 mL/min Glucose 84 (75 - 99) mg/dL Calcium 8.6 L (8.7-10.3) mg/dL Magnesium 2.8 H (1.8-2.4) mg/dL Total Bilirubin 0.4 (0.2-1.0) mg/dL AST 48 H (15-37) U/L ALT 41 (12-78) U/L Alkaline Phosphatase 138 H (46-116) IU/L Troponin I < 0.04 (0.00-0.070) ng/mL Total Protein 6.3 L (6.4-8.2) g/dL Albumin 2.87 L (3.00-4.80) g/dL Specimen Type Urine Color (YELLOW) Urine Appearance (CLEAR) Urine pH (5.0-9.0) Ur Specific [place] (1.005-1.030) Urine Protein (NEGATIVE) mg/dL Urine Glucose (UA) (NEGATIVE) mg/dL Urine Ketones (NEGATIVE) mg/dL Urine Occult Blood (NEGATIVE) Urine Nitrite (NEGATIVE) Urine Bilirubin (NEGATIVE) Urine Urobilinogen (0.2-1.0) E.U./dL Ur Leukocyte Esterase (NEGATIVE) Urine RBC (0-5) /HPF Urine WBC (0-5) /HPF Ur Epithelial Cells /LPF Amorphous Sediment (0/HPF) /HPF Urine Bacteria (NONE TO FEW) /HPF 02/17/20 Range/Units 16:00 WBC (5.00-10.00) 10^3/uL RBC (3.80-5.50) 10^6/uL Hgb (12.0-16.0) g/dL Hct (37.0-47.0) % MCV (82.0-92.0) fL MCH (27.0-31.0) pg MCHC (32.0-36.0) g/dL RDW (11.5-14.5) % Plt Count (150-400) 10^3/uL MPV (7.4-10.4) fL Immature Gran % (Auto) (0.0-5.0) % Neut % (Auto) (50.0-70.0) % Lymph % (Auto) (20.0-40.0) % Wilkin % (Auto) (2.0-8.0) % Eos % (Auto) (1.0-3.0) % Baso % (Auto) (0.0-1.0) % Neut # (Auto) (2.50-7.00) 10^3/uL Lymph # (Auto) (1.00-4.00) 10^3/uL Wilkin # (Auto) (0.10-0.80) 10^3/uL Eos # (Auto) (0.10-0.30) 10^3/uL Baso # (Auto) (0.00-0.10) 10^3/uL Immature Gran # (Auto) (0.00-0.50) 10^3/uL Sodium (136-145) mmol/L Potassium (3.3-5.3) mmol/L Chloride (98-115) mmol/L Carbon Dioxide (21.0-32.0) mmol/L Anion Gap (5-15) mmol/L BUN (6-25) mg/dL Creatinine (0.51-1.17) mg/dL Est Cr Clr Drug Dosing mL/min Estimated GFR (MDRD) mL/min Glucose (75 - 99) mg/dL Calcium (8.7-10.3) mg/dL Magnesium (1.8-2.4) mg/dL Total Bilirubin (0.2-1.0) mg/dL AST (15-37) U/L ALT (12-78) U/L Alkaline Phosphatase (46-116) IU/L Troponin I (0.00-0.070) ng/mL Total Protein (6.4-8.2) g/dL Albumin (3.00-4.80) g/dL Specimen Type Urin[place]ath Urine Color Light yellow (YELLOW) Urine Appearance Turbid H (CLEAR) Urine pH 7.0 (5.0-9.0) Ur Specific [place] 1.020 (1.005-1.030) Urine Protein Negative (NEGATIVE) mg/dL Urine Glucose (UA) Negative (NEGATIVE) mg/dL Urine Ketones Negative (NEGATIVE) mg/dL Urine Occult Blood Small H (NEGATIVE) Urine Nitrite Negative (NEGATIVE) Urine Bilirubin Negative (NEGATIVE) Urine Urobilinogen 0.2 (0.2-1.0) E.U./dL Ur Leukocyte Esterase Small H (NEGATIVE) Urine RBC 5-10 H (0-5) /HPF Urine WBC Packed (0-5) /HPF Ur Epithelial Cells Many H /LPF Amorphous Sediment Many H (0/HPF) /HPF Urine Bacteria Many H (NONE TO FEW) /HPF Meds: Medications Generic Name Dose Route Start Last Admin Trade Name Freq PRN Reason Stop Dose Admin Ciprofloxacin/Dextrose 400 mg/ 200 mls @ 200 mls/hr 02/17/20 16:43 02/17/20 16:53 Premix IV 02/17/20 17:42 200 mls/hr ONETIME ONE Administration Insulin Human Regular 10 unit/ 99.1 mls @ 74.169 mls/hr 02/17/20 17:15 Sodium Chloride IV TITRATE RADHA Protocol 0.1 UNITS/KG/HR Sodium Chloride 50 mls @ 50 mls/hr 02/17/20 17:30 Sodium Chloride 3% IV ASDIRECTED [facility] Sodium Chloride 10 ml 02/17/20 15:42 Saline Flush FLUSH Q8HR PRN keep vein open Discontinued Medications Generic Name Dose Route Start Last Admin Trade Name Freq PRN Reason Stop Dose Admin Calcium Gluconate 1 gm 02/17/20 17:21 Calcium Gluconate IVPUSH 02/17/20 17:22 ONETIME ONE Furosemide 40 mg 02/17/20 17:15 Lasix IVPUSH 02/17/20 17:16 NOW ONE Sodium Polystyrene Sulfonate 15 gm 02/17/20 16:39 02/17/20 16:53 Kayexalate PO 02/17/20 16:40 15 gm ONETIME ONE Administration - Re-Assessments/Exams Free Text/Narrative Re-Assessment/Exam: 02/17/20 17:26 Patient afebrile, vital signs stable, oxygen saturation 92% on 2 L nasal cannula. Chest case with Dr. Galarza, hospitalist at [facility]. Initial therapy will be initiated here. The patient will be transferred via ground EMS to [facility]. Departure - Departure Time of Disposition: 17:28 Disposition: DC/Tfer to [facility] 02 Condition: Fair Clinical Impression: UTI, Urinary tract infectious disease, Hyperkalemia, Hypoxemia ARF (acute renal failure) Qualifiers: Acute renal failure type: unspecified Qualified Code(s): N17.9 - Acute kidney failure, unspecified - Discharge Information Referrals: Rossy Quinteros MD [Primary Care Provider] - Forms: ED Department Discharge Sepsis Event Note (ED) - Focused Exam Vital Signs: Vital Signs Temp Pulse Resp BP Pulse Ox 02/17/20 16:23 97.8 F 51 L 16 127/48 L 94 L 02/17/20 15:50 48 L 16 129/46 L 93 L 02/17/20 15:35 97.8 F 52 L 16 133/55 L 95 - My Orders Last 24 Hours: My Active Orders 02/17/20 15:42 Peripheral IV Care [RC] . DIRECTED Sodium Chloride 0.9% [Saline Flush] 10 ml FLUSH Q8HR PRN Peripheral IV Insertion Adult [OM.PC] Routine 02/17/20 16:00 CULTURE URINE [RM] Stat 02/17/20 16:25 EKG 12 Lead [EK] Stat 02/17/20 16:26 EKG Documentation Completion [RC] ASDIRECTED 02/17/20 16:43 Ciprofloxacin in D5W [Cipro in D5W 400 MG/200 ML] 400 mg Premix Bag 1 bag IV ONETIME 02/17/20 17:15 Insulin Regular, Human [HumuLIN R] 10 unit Sodium Chloride 0.9% [Normal Saline] 99 ml IV TITRATE 02/17/20 17:23 DIGOXIN [CHEM] Stat 02/17/20 17:30 Sodium Chloride 3% 50 ml IV ASDIRECTED - Assessment/Plan Last 24 Hours: My Active Orders 02/17/20 15:42 Peripheral IV Care [RC] . DIRECTED Sodium Chloride 0.9% [Saline Flush] 10 ml FLUSH Q8HR PRN Peripheral IV Insertion Adult [OM.PC] Routine 02/17/20 16:00 CULTURE URINE [RM] Stat 02/17/20 16:25 EKG 12 Lead [EK] Stat 02/17/20 16:26 EKG Documentation Completion [RC] ASDIRECTED 02/17/20 16:43 Ciprofloxacin in D5W [Cipro in D5W 400 MG/200 ML] 400 mg Premix Bag 1 bag IV ONETIME 02/17/20 17:15 Insulin Regular, Human [HumuLIN R] 10 unit Sodium Chloride 0.9% [Normal Saline] 99 ml IV TITRATE 02/17/20 17:23 DIGOXIN [CHEM] Stat 02/17/20 17:30 Sodium Chloride 3% 50 ml IV ASDIRECTED Assessment:: Hyperkalemia Plan: Answered to [facility]
[2020-02-17 16:27] LABS: ANION GAP 15.5 mmol/L (5-15)
[2020-02-17] MEDS: Ciprofloxacin in D5W 400 MG in Premix Bag 1 BAG IV ONE ×2 (16:53)
[2020-02-17] MEDS: Sodium Polystyrene Sulfonate 15 GM/60 ML Susp 60 ML Bot PO ONE (16:53)
[2020-02-17] MEDS ORDERED: INSULIN REGULAR IV SCH ×2 (17:15)
[2020-02-17] MEDS ORDERED: HUMAN IV SCH ×2 (17:15)
[2020-02-17] MEDS ORDERED: SODIUM CHLORIDE 0.9% IV SCH ×2 (17:15)
[2020-02-17] MEDS: Furosemide 40 MG/4 ML VIAL IVPUSH ONE (17:30)
[2020-02-17] MEDS: Insulin Regular, Human 100 Units/ML 10 ML Vial IV ONE (17:45)
[2020-02-17] MEDS: Calcium Gluconate 10% 1 GM/10 ML SDV IVPUSH ONE (18:00)
[2020-02-17] MEDS: Sodium Chloride 3% 50 ML IV SCH (18:09)
== END 2020-02-17 18:15 ==
LOC: KA.ED 15:32
DX: N17.9 Acute kidney failure, unspecified (principal); E87.5 Hyperkalemia; I48.91 Unspecified atrial fibrillation; I11.0 Hypertensive heart disease with heart failure; I50.9 Heart failure, unspecified; E78.00 Pure hypercholesterolemia, unspecified; M41.9 Scoliosis, unspecified; R09.02 Hypoxemia; G30.9 Alzheimer's disease, unspecified; F02.80 Dementia in other diseases classified elsewhere, unspecified severity, without behavioral disturbance, psychotic disturbance, mood disturbance, and anxiety; F31.9 Bipolar disorder, unspecified; F41.9 Anxiety disorder, unspecified; Z88.1 Allergy status to other antibiotic agents; Z88.5 Allergy status to narcotic agent; Z88.6 Allergy status to analgesic agent; Z88.8 Allergy status to other drugs, medicaments and biological substances; Z79.899 Other long term (current) drug therapy; Z79.01 Long term (current) use of anticoagulants; N39.0 Urinary tract infection, site not specified
CPT/HCPCS: 36415; 80053; 80162; 81001; 83735; 84484; 85025; 87086; 87088; 96374; 96375; 99285; A9270; J0610; J0744; J1940; J7040; 87186; 93005; 99284; J7050

== ENCOUNTER 2020-03-09 20:59 | Observation (INO) | payer MEDICARE, BC, MEDICAID ==
[2020-03-09] MEDS ORDERED: Sodium Chloride 0.9% 1,000 ML IV ONE (21:30)
[2020-03-09] MEDS ORDERED: Sodium Chloride 0.9% 1,000 ML ONE (21:30)
--- NOTE | 2020-03-09 21:48 | EDM.PDOC ---
ED HPI GENERAL MEDICAL PROBLEM - General Chief Complaint: General Stated Complaint: PALPITATIONS Time Seen by Provider: 03/09/20 21:15 Source of Information: Reports: Patient, Provider History Limitations: Reports: No Limitations - History of Present Illness INITIAL COMMENTS - FREE TEXT/NARRATIVE: 80 YO WF WITH PMH OF RENAL INSUFFICIENCY WITH SECONDARY HYPERKALEMIA, AND ATRIAL FIBRILLATION WHO PRESENTS TO ER WITH PALPITATIONS AND SHORTNESS OF BREATH WHICH BEGAN EARLIER TODAY. PT REPORTS SHE WAS RECENTLY HOSPITALIZED FOR HYPERKALEMIA AND ANEMIA AND HAD HER DIGOXIN DISCONTINUED. PT STATES SHE HAD BEEN FEELING FINE OVER THE LAST WEEK BUT TODAY DEVELOPED PALPITATIONS WITH ASSOCIATED SHORTNESS OF BREATH PROMPTING ER EVALUATION. PT DENIES FEVER/CHILLS, NO COUGH/CONGESTION, NO N/V/D. PT REPORTS SHE HAS BEEN EATING AND DRINKING WELL AND DENIES ANY KNOWN SICK CONTACTS. PT DENIES CHEST PAIN OR ANY RADIATING JAW/SHOULDER/NECK PAIN OR ARM PAIN. PT ALERT AND ORIENTED X 3. Onset: Today Duration: Hour(s): Location: Reports: Generalized Severity: Moderate Improves with: Reports: None Worsens with: Reports: None Associated Symptoms: Reports: Shortness of Breath, Weakness - Related Data Allergies Allergy/AdvReac Type Severity Reaction Status Date / Time ceftriaxone Allergy Cannot Verified 03/04/20 15:09 Remember hydrocodone Allergy Cannot Verified 03/04/20 15:09 Remember ibuprofen Allergy Cannot Verified 03/04/20 15:09 Remember ofloxacin Allergy Cannot Verified 03/04/20 15:09 Remember propoxyphene Allergy Cannot Verified 03/04/20 15:09 Remember Home Meds: Home Meds Acetaminophen 500 mg PO BID PRN 05/26/19 [History] DULoxetine [Cymbalta] 60 mg PO 199905/26/19 [History] Docusate Sodium 100 mg PO BID PRN 05/26/19 [History] Donepezil HCl 10 mg PO 199905/26/19 [History] Ferrous Sulfate 325 mg PO Q48H 05/26/19 [History] Furosemide 40 mg PO DAILY 05/26/19 [History] Magnesium Oxide 400 mg PO DAILY 05/26/19 [History] Mv,Dimitri,Iron,Mn/Folic Acid/Chol [Hair, Skin and Nails Capsule] 2 tab PO DAILY 05/26/19 [History] Pantoprazole Sodium 40 mg PO [id number] 05/26/19 [History] Rivaroxaban [Xarelto] 15 mg PO [id number] 05/26/19 [History] buPROPion HCL [Wellbutrin Xl] 150 mg PO DAILY 05/26/19 [History] traMADol HCl [Tramadol HCl] 50 mg PO QID 05/26/19 [History] ARIPiprazole [Abilify] 2 mg PO [id number] 12/27/19 [History] Acetaminophen [Tylenol Extra Strength] 500 mg PO QID PRN 12/27/19 [History] Albuterol/Ipratropium [DuoNeb 3.0-0.5 MG/3 ML] 3 ml INH Q4H PRN 12/27/19 [History] Calcium Carbonate [Calcium] 500 mg PO BEDTIME 12/27/19 [History] Calcium Carbonate [Calcium] 500 mg PO BID PRN 12/27/19 [History] Carboxymethylcellulose/Lytes [John-Stir Oral [place]] 1 - 2 spray PO QID PRN 12/26 [History] Trolamine Salicylate/Aloe Vera [Aspercreme 10% Cream] 1 applic TOP BID PRN 12/27/19 [History] buPROPion HCL [Wellbutrin Xl] 300 mg PO DAILY 12/27/19 [History] guaiFENesin/Dextromethorphan [Guaifenesin-Dm 100-10 mg/5 ml] 10 ml PO Q4H PRN 12/27/19 [History] traMADol [Ultram] 50 mg PO DAILY PRN 12/27/19 [History] Ergocalciferol (Vitamin D2) [Vitamin D2] 50,000 unit PO WEEKLY 03/04/20 [H istory] Meclizine HCl 25 mg PO Q4H PRN 03/04/20 [History] Melatonin 3 mg PO BEDTIME 03/04/20 [History] Past Medical History HEENT History: Reports: Cataract, Impaired Vision Cardiovascular History: Reports: Afib, Arrhythmia, Heart Failure, Heart Murmur, High Cholesterol, Hypertension, SOB on Exertion Other Cardiovascular History: NONRHEUMATIC MITRAL VALVE INSUFFICIENCY. RHEUMATIC TRICUSPID INSUFFICIENCY. HYPOMAGNESIUM. HYPERKALEMIA Respiratory History: Reports: None Other Respiratory History: HYPOXEMIA Gastrointestinal History: Reports: Cholelithiasis, Chronic Diarrhea, GERD, GI Bleed Genitourinary History: Reports: None, Urinary Incontinence, UTI, Recurrent [employer] History: Reports: Musculoskeletal History: Reports: Back Pain, Chronic, Fibromyalgia, Neck Pain, Chronic, Osteoporosis Other Musculoskeletal History: SCOLIOSIS Neurological History: Reports: Alzheimers Disease, Concussion, TIA Psychiatric History: Reports: Anxiety, Depression Other Psychiatric History: UNSPECIFIED PSYCHOSIS. BIPOLAR II DISORDER Endocrine/Metabolic History: Reports: Osteoporosis Hematologic History: Reports: Anemia, Blood Transfusion(s), Iron Deficiency Oncologic (Cancer) History: Reports: None Dermatologic History: Reports: None - Infectious Disease History Infectious Disease History: Reports: Chicken Pox, Measles, MRSA, Mumps Other Infectious Disease History: MRSA IN BACK POST SPINAL SURGERY - Past Surgical History HEENT Surgical History: Reports: Cataract Surgery, Oral Surgery Cardiovascular Surgical History: Reports: None Respiratory Surgical History: Reports: None GI Surgical History: Reports: Appendectomy, Bariatric Procedure, Cholecystectomy, Colonoscopy, EGD, Lysis of Adhesions Female Surgical History: Reports: Cystectomy, Hysterectomy, Salpingo- Oophorectomy Endocrine Surgical History: Reports: None Neurological Surgical History: Reports: Lumbar Spine Other Neurological Surgeries/Procedures: jose in lumbar region - history of mrsa 5 fusions Musculoskeletal Surgical History: Reports: Knee Replacement, Shoulder Surgery Other Musculoskeletal Surgeries/Procedures:: right shoulder reconstructed. right knee replacement Oncologic Surgical History: Reports: None Dermatological Surgical History: Reports: None Social & Family History - Family History Family Medical History: Noncontributory - Caffeine Use Caffeine Use: Reports: Coffee, Soda ED ROS GENERAL - Review of Systems Review Of Systems: See Below Constitutional: Reports: No Symptoms HEENT: Reports: No Symptoms Respiratory: Reports: Shortness of Breath Cardiovascular: Reports: Dyspnea on Exertion, Palpitations Endocrine: Reports: No Symptoms GI/Abdominal: Reports: No Symptoms : Reports: No Symptoms Musculoskeletal: Reports: No Symptoms Skin: Reports: No Symptoms Neurological: Reports: No Symptoms Psychiatric: Reports: No Symptoms Hematologic/Lymphatic: Reports: No Symptoms Immunologic: Reports: No Symptoms ED EXAM, GENERAL - Physical Exam Exam: See Below Exam Limited By: No Limitations General Appearance: Alert, WD/WN, No Apparent Distress Neck: Normal Inspection, Supple, Non-Tender, Full Range of Motion Respiratory/Chest: No Respiratory Distress, Chest Non-Tender, Decreased Breath Sounds Cardiovascular: Normal Peripheral Pulses, Regular Rate, Rhythm, No Murmur, No Rub, JVD, Tachycardia GI/Abdominal: Normal Bowel Sounds, Soft, Non-Tender, No Organomegaly, No Distention, No Abnormal Bruit, No Mass Back Exam: Normal Inspection, Full Range of Motion, NT Extremities: Normal Inspection, Normal Range of Motion, Non-Tender, Normal Capillary Refill, No Pedal Edema Neurological: Alert, Oriented, CN II-XII Intact, Normal Cognition, Normal Gait, Normal Reflexes, No Motor/Sensory Deficits Psychiatric: Normal Affect, Normal Mood Skin Exam: Warm, Dry, Intact, Normal Color, No Rash EKG INTERPRETATION EKG Date: 03/09/20 Time: 21:29 Rhythm: NSR Rate (Beats/Min): 121 [place]: Normal P-Wave: Absent QRS: Normal ST-T: Normal QT: Normal Course - Vital Signs Last Recorded V/S: Last Vital Signs Temp 36.7 C 03/09/20 21:05 Pulse 119 H 03/09/20 21:55 Resp 16 03/09/20 21:55 BP 110/54 L 03/09/20 21:55 Pulse Ox 97 03/09/20 21:55 - Orders/Labs/Meds Orders: Active Orders 24 hr Category Date Time Status Cardiac Monitoring [RC] CONTINUOUS Care 03/09/20 21:41 Active EKG Documentation Completion [RC] ASDIRECTED Care 03/09/20 21:40 Active Overnight Pulse Oximetry [RC] Click to Edit Care 03/09/20 21:41 Active Chest 1V Frontal [CR] Stat Exams 03/09/20 21:40 Ordered Chest 2V [CR] Stat Exams 03/09/20 21:40 Ordered B-TYPE NATRIURETIC PEPTIDE,BNP [CHEM] Stat Lab 03/09/20 22:07 Ordered CULTURE BLOOD [BC] Stat Lab 03/09/20 21:23 Received CULTURE BLOOD [BC] Stat Lab 03/09/20 21:40 Ordered Blood Culture x2 Reflex Set [OM.PC] Stat Oth 03/09/20 21:40 Ordered Pulse Oximetry Continuous Monitoring [OM.PC] Routine Oth 03/09/20 21:40 Ordered Severe Sepsis Onset Time [OM.PC] Stat Oth 03/09/20 21:40 Ordered EKG 12 Lead [EK] Stat Ther 03/09/20 21:40 Ordered Labs: Laboratory Tests 03/09/20 03/09/20 03/09/20 Range/Units 21:23 21:23 21:23 WBC 7.71 (5.00-10.00) 10^3/uL RBC 2.74 L (3.80-5.50) 10^6/uL Hgb 8.6 L (12.0-16.0) g/dL Hct 28.9 L (37.0-47.0) % MCV 105.5 H D (82.0-92.0) fL MCH 31.4 H (27.0-31.0) pg MCHC 29.8 L (32.0-36.0) g/dL RDW 20.3 H (11.5-14.5) % Plt Count 225 (150-400) 10^3/uL MPV 8.5 (7.4-10.4) fL Immature Gran % (Auto) 0.3 (0.0-5.0) % Neut % (Auto) 59.8 (50.0-70.0) % Lymph % (Auto) 20.9 (20.0-40.0) % [place] % (Auto) 11.8 H (2.0-8.0) % Eos % (Auto) 6.7 H (1.0-3.0) % Baso % (Auto) 0.5 (0.0-1.0) % Neut # (Auto) 4.61 (2.50-7.00) 10^3/uL Lymph # (Auto) 1.61 (1.00-4.00) 10^3/uL [place] # (Auto) 0.91 H (0.10-0.80) 10^3/uL Eos # (Auto) 0.52 H (0.10-0.30) 10^3/uL Baso # (Auto) 0.04 (0.00-0.10) 10^3/uL Immature Gran # (Auto) 0.02 (0.00-0.50) 10^3/uL Elliptocytes 1+ slight Sodium 143 (136-145) mmol/L Potassium 4.5 D (3.3-5.3) mmol/L Chloride 106 (98-115) mmol/L Carbon Dioxide 30.7 (21.0-32.0) mmol/L Anion Gap 10.8 (5-15) mmol/L BUN 22 (6-25) mg/dL Creatinine 1.16 (0.51-1.17) mg/dL Est Cr Clr Drug Dosing TNP Estimated GFR (MDRD) 45 mL/min Glucose 84 (75 - 99) mg/dL Lactic Acid 1.0 (0.4-2.0) mmol/L Calcium 8.1 L (8.7-10.3) mg/dL Total Bilirubin 0.2 (0.2-1.0) mg/dL AST 17 (15-37) U/L ALT 14 (12-78) U/L Alkaline Phosphatase 101 (46-116) IU/L Total Protein 5.8 L (6.4-8.2) g/dL Albumin 2.60 L (3.00-4.80) g/dL Specimen Type Urine Color (YELLOW) Urine Appearance (CLEAR) Urine pH (5.0-9.0) Ur Specific [place] (1.005-1.030) Urine Protein (NEGATIVE) mg/dL Urine Glucose (UA) (NEGATIVE) mg/dL Urine Ketones (NEGATIVE) mg/dL Urine Occult Blood (NEGATIVE) Urine Nitrite (NEGATIVE) Urine Bilirubin (NEGATIVE) Urine Urobilinogen (0.2-1.0) E.U./dL Ur Leukocyte Esterase (NEGATIVE) U Hyaline Cast (Auto) Urine RBC (0-5) /HPF Urine WBC (0-5) /HPF Ur Epithelial Cells /LPF Urine Bacteria (NONE TO FEW) /HPF 03/09/20 Range/Units 21:50 WBC (5.00-10.00) 10^3/uL RBC (3.80-5.50) 10^6/uL Hgb (12.0-16.0) g/dL Hct (37.0-47.0) % MCV (82.0-92.0) fL MCH (27.0-31.0) pg MCHC (32.0-36.0) g/dL RDW (11.5-14.5) % Plt Count (150-400) 10^3/uL MPV (7.4-10.4) fL Immature Gran % (Auto) (0.0-5.0) % Neut % (Auto) (50.0-70.0) % Lymph % (Auto) (20.0-40.0) % [place] % (Auto) (2.0-8.0) % Eos % (Auto) (1.0-3.0) % Baso % (Auto) (0.0-1.0) % Neut # (Auto) (2.50-7.00) 10^3/uL Lymph # (Auto) (1.00-4.00) 10^3/uL [place] # (Auto) (0.10-0.80) 10^3/uL Eos # (Auto) (0.10-0.30) 10^3/uL Baso # (Auto) (0.00-0.10) 10^3/uL Immature Gran # (Auto) (0.00-0.50) 10^3/uL Elliptocytes Sodium (136-145) mmol/L Potassium (3.3-5.3) mmol/L Chloride (98-115) mmol/L Carbon Dioxide (21.0-32.0) mmol/L Anion Gap (5-15) mmol/L BUN (6-25) mg/dL Creatinine (0.51-1.17) mg/dL Est Cr Clr Drug Dosing Estimated GFR (MDRD) mL/min Glucose (75 - 99) mg/dL Lactic Acid (0.4-2.0) mmol/L Calcium (8.7-10.3) mg/dL Total Bilirubin (0.2-1.0) mg/dL AST (15-37) U/L ALT (12-78) U/L Alkaline Phosphatase (46-116) IU/L Total Protein (6.4-8.2) g/dL Albumin (3.00-4.80) g/dL Specimen Type Urincc Urine Color Yellow (YELLOW) Urine Appearance Slightly cloudy H (CLEAR) Urine pH 5.5 (5.0-9.0) Ur Specific [place] 1.020 (1.005-1.030) Urine Protein Negative (NEGATIVE) mg/dL Urine Glucose (UA) Negative (NEGATIVE) mg/dL Urine Ketones Negative (NEGATIVE) mg/dL Urine Occult Blood Negative (NEGATIVE) Urine Nitrite Negative (NEGATIVE) Urine Bilirubin Negative (NEGATIVE) Urine Urobilinogen 0.2 (0.2-1.0) E.U./dL Ur Leukocyte Esterase Negative (NEGATIVE) U Hyaline Cast (Auto) Few Urine RBC 0-5 (0-5) /HPF Urine WBC 0-5 (0-5) /HPF Ur Epithelial Cells Moderate H /LPF Urine Bacteria Few (NONE TO FEW) /HPF Meds: Medications Discontinued Medications Generic Name Dose Route Start Last Admin Trade Name Megan PRN Reason Stop Dose Admin Sodium Chloride Confirm 03/09/20 21:30 Normal Saline Administered 03/09/20 21:31 Dose 1,000 mls @ as directed .ROUTE .STK-MED ONE Metoprolol Succinate 25 mg 03/09/20 22:32 Toprol Xl PO 03/09/20 22:33 ONETIME ONE - Radiology Interpretation Free Text/Narrative:: CXR- CENTRAL VENOUS CONGESTION Departure - Departure Time of Disposition: 22:38 Disposition: Refer to Observation Condition: Fair Clinical Impression: Atrial fibrillation with rapid ventricular response Atrial fibrillation Qualifiers: Atrial fibrillation type: unspecified chronic Qualified Code(s): I48.20 - Chronic atrial fibrillation, unspecified; I48.2 - Chronic atrial fibrillation - Discharge Information Referrals: Rossy Quinteros MD [Primary Care Provider] - Forms: ED Department Discharge Sepsis Event Note (ED) - Focused Exam Vital Signs: Vital Signs Temp Pulse Resp BP Pulse Ox 03/09/20 21:55 119 H 16 110/54 L 97 03/09/20 21:45 122 H 18 97/54 L 97 03/09/20 21:20 118 H 18 96/60 97 03/09/20 21:05 36.7 C 120 H 20 95/50 L 89 L - My Orders Last 24 Hours: My Active Orders 03/09/20 21:23 CULTURE BLOOD [BC] Stat 03/09/20 21:40 EKG Documentation Completion [RC] ASDIRECTED Chest 1V Frontal [CR] Stat Chest 2V [CR] Stat CULTURE BLOOD [BC] Stat Blood Culture x2 Reflex Set [OM.PC] Stat Pulse Oximetry Continuous Monitoring [OM.PC] Routine Severe Sepsis Onset Time [OM.PC] Stat EKG 12 Lead [EK] Stat 03/09/20 21:41 Cardiac Monitoring [RC] CONTINUOUS Overnight Pulse Oximetry [RC] Click to Edit 03/09/20 22:07 B-TYPE NATRIURETIC PEPTIDE,BNP [CHEM] Stat - Assessment/Plan Last 24 Hours: My Active Orders 03/09/20 21:23 CULTURE BLOOD [BC] Stat 03/09/20 21:40 EKG Documentation Completion [RC] ASDIRECTED Chest 1V Frontal [CR] Stat Chest 2V [CR] Stat CULTURE BLOOD [BC] Stat Blood Culture x2 Reflex Set [OM.PC] Stat Pulse Oximetry Continuous Monitoring [OM.PC] Routine Severe Sepsis Onset Time [OM.PC] Stat EKG 12 Lead [EK] Stat 03/09/20 21:41 Cardiac Monitoring [RC] CONTINUOUS Overnight Pulse Oximetry [RC] Click to Edit 03/09/20 22:07 B-TYPE NATRIURETIC PEPTIDE,BNP [CHEM] Stat Assessment:: 1. A FIB RVR 2. MILD CHF Plan: 1. ADMIT FOR OBS- DR REESE 2. METOPROLOL 25MG BID FOR RATE CONTROL- DISCUSSED WITH AND RECOMMENDED BY CARDIOLOGY DR TATUM AT [facility] 3. O2 PER MILD HYPOXIA 4. WILL OBSERVE FOR RATE CONTROL AND IMPROVEMENT IN [facility]
[2020-03-09 22:04] LABS: ANION GAP 10.8 mmol/L (5-15); CHLORIDE,CL 106 mmol/L (98-115); SODIUM,NA 143 mmol/L (136-145)
[2020-03-09] MEDS ORDERED: Metoprolol Succinate 25 MG Tab.ER PO ONE (22:32)
[2020-03-09] MEDS ORDERED: Sodium Chloride 0.9% 10 ML Syringe FLUSH PRN (22:40)
[2020-03-09] MEDS ORDERED: Acetaminophen 500 MG Tab PO ONE (23:35)
[2020-03-10] MEDS ORDERED: Trolamine Salicylate/Aloe Vera 10% Crm 85 GM Tube TOP PRN ×2 (02:56→03:28)
[2020-03-10] MEDS ORDERED: traMADol 50 MG Tab PO ONE (02:56)
--- NOTE | 2020-03-10 07:50 | CR ---
[id number] RAD/RAD Chest PA or AP 1V EXAM: RAD Chest PA or AP 1V INDICATION: FEVER. COMPARISON: August 2017. DISCUSSION: Findings are within limitation of apical lordotic view secondary to severe kyphosis. This simulates low lung volumes. Hemidiaphragm obscures both lung bases. Embolus limitation, no evidence of pneumonia. Central vascular congestion is again seen, similar to August 2017. IMPRESSION: As above. Hakeem De León MD 03/10/20 0749 Thank you for allowing us to participate in the care of your patient.
[2020-03-10] MEDS ORDERED: Albuterol/Ipratropium 3.0-0.5 MG/3 ML Neb Soln INH PRN (08:50)
[2020-03-10] MEDS ORDERED: Docusate Sodium 100 MG Cap PO PRN (08:50)
[2020-03-10] MEDS ORDERED: traMADol 50 MG Tab PO PRN (08:50)
[2020-03-10] MEDS ORDERED: Saliva Substitute Oral Spray 120 ML Bottle MUCMEM PRN (08:50)
[2020-03-10] MEDS ORDERED: Meclizine 25 MG Tab PO PRN (08:50)
[2020-03-10] MEDS ORDERED: Bisacodyl 10 MG Supp RECTAL PRN (08:50)
[2020-03-10] MEDS ORDERED: Acetaminophen 500 MG Tab PO PRN (08:50)
[2020-03-10] MEDS ORDERED: buPROPion 150 MG Tab.ER PO SCH (09:00)
[2020-03-10] MEDS ORDERED: [UNRECOGNIZED DRUG - OTHER] PO SCH (09:00)
[2020-03-10] MEDS ORDERED: FOLIC ACID PO SCH (09:00)
[2020-03-10] MEDS ORDERED: CHOL PO SCH (09:00)
[2020-03-10] MEDS ORDERED: MV CAL IRON MN PO SCH (09:00)
--- NOTE | 2020-03-10 09:02 | PCM.PN ---
- General Info Date of Service: 03/10/20 Admission Dx/Problem (Free Text): Atrial fibrillation with RVR. - Review of Systems Systems Review Comment:: Shayla is seen today on observation rounds. She was admitted on 03/09/2020 from the ER. I am Shayla's primary care provider and noted she was on my schedule for today (03/10) for a rapid heart rate in the 120's. She has a hx of atrial fibrillation and is anticoagulated on Xarelto. She recently was hospitalized for acute renal failure with hyperkalemia and supratherapeutic digoxin level just over 2. Her digoxin was discontinued and her labs normalized. She was noted to have palpitations yesterday (03/09) and was found to have a HR in the 120's. I contacted [facility] and asked that she be transported to the ER for further work-up and treatment of her atrial fibrillation. She was not on a CCB or a beta mallory, presumably due to her borderline blood pressure. Cardiology one-call at [place] was consulted and recommended metoprolol 25 mg PO BID. She received 1 dose of metoprolol 25 mg PO in the ER and was admitted on telemetry. Overnight her HR was in the 80's. This AM she is in the 90's on telemetry. She has not yet had AM medications. Her blood pressure was 96/41 but she states she feels fine and that is often how low her blood pressure is. She also has a hx of CHF and her lisinopril and spironolactone were discontinued over a month ago due to her persistent hyperkalemia. She has been hypoxic recently but had been improving in that she was no longer needing O2 during the day but did require it at night. She was hypoxic upon arrival in the ER and O2 via NC was started. She is able to maintain sats >90% on 2L via NC but did drop to 88% without O2. She denies feeling SOB. - Patient Data Vitals - Most Recent: Last Vital Signs Temp 98.5 F 03/10/20 06:44 Pulse 98 03/10/20 06:44 Resp 20 03/10/20 06:44 BP 92/41 L 03/10/20 06:44 Pulse Ox 93 L 03/10/20 08:00 Weight - Most Recent: 162 lb I&O - Last 24 Hours: Intake & Output 03/09/20 03/10/20 03/10/20 22:59 06:59 14:59 Intake Total 200 Balance 200 Lab Results Last 24 Hours: Laboratory Results - last 24 hr 03/09/20 03/09/20 03/09/20 Range/Units 21:23 21:23 21:23 WBC 7.71 (5.00-10.00) 10^3/uL RBC 2.74 L (3.80-5.50) 10^6/uL Hgb 8.6 L (12.0-16.0) g/dL Hct 28.9 L (37.0-47.0) % MCV 105.5 H D (82.0-92.0) fL MCH 31.4 H (27.0-31.0) pg MCHC 29.8 L (32.0-36.0) g/dL RDW 20.3 H (11.5-14.5) % Plt Count 225 (150-400) 10^3/uL MPV 8.5 (7.4-10.4) fL Immature Gran % (Auto) 0.3 (0.0-5.0) % Neut % (Auto) 59.8 (50.0-70.0) % Lymph % (Auto) 20.9 (20.0-40.0) % Powell % (Auto) 11.8 H (2.0-8.0) % Eos % (Auto) 6.7 H (1.0-3.0) % Baso % (Auto) 0.5 (0.0-1.0) % Neut # (Auto) 4.61 (2.50-7.00) 10^3/uL Lymph # (Auto) 1.61 (1.00-4.00) 10^3/uL Powell # (Auto) 0.91 H (0.10-0.80) 10^3/uL Eos # (Auto) 0.52 H (0.10-0.30) 10^3/uL Baso # (Auto) 0.04 (0.00-0.10) 10^3/uL Immature Gran # (Auto) 0.02 (0.00-0.50) 10^3/uL Elliptocytes 1+ slight Sodium 143 (136-145) mmol/L Potassium 4.5 D (3.3-5.3) mmol/L Chloride 106 (98-115) mmol/L Carbon Dioxide 30.7 (21.0-32.0) mmol/L Anion Gap 10.8 (5-15) mmol/L BUN 22 (6-25) mg/dL Creatinine 1.16 (0.51-1.17) mg/dL Est Cr Clr Drug Dosing TNP Estimated GFR (MDRD) 45 mL/min Glucose 84 (75 - 99) mg/dL Lactic Acid 1.0 (0.4-2.0) mmol/L Calcium 8.1 L (8.7-10.3) mg/dL Total Bilirubin 0.2 (0.2-1.0) mg/dL AST 17 (15-37) U/L ALT 14 (12-78) U/L Alkaline Phosphatase 101 (46-116) IU/L B-Natriuretic Peptide (0-100) pg/mL Total Protein 5.8 L (6.4-8.2) g/dL Albumin 2.60 L (3.00-4.80) g/dL Specimen Type Urine Color (YELLOW) Urine Appearance (CLEAR) Urine pH (5.0-9.0) Ur Specific [place] (1.005-1.030) Urine Protein (NEGATIVE) mg/dL Urine Glucose (UA) (NEGATIVE) mg/dL Urine Ketones (NEGATIVE) mg/dL Urine Occult Blood (NEGATIVE) Urine Nitrite (NEGATIVE) Urine Bilirubin (NEGATIVE) Urine Urobilinogen (0.2-1.0) E.U./dL Ur Leukocyte Esterase (NEGATIVE) U Hyaline Cast (Auto) Urine RBC (0-5) /HPF Urine WBC (0-5) /HPF Ur Epithelial Cells /LPF Urine Bacteria (NONE TO FEW) /HPF COVID-19 (JORDANA) (NEGATIVE) 03/09/20 03/09/20 03/09/20 Range/Units 21:23 21:50 23:00 WBC (5.00-10.00) 10^3/uL RBC (3.80-5.50) 10^6/uL Hgb (12.0-16.0) g/dL Hct (37.0-47.0) % MCV (82.0-92.0) fL MCH (27.0-31.0) pg MCHC (32.0-36.0) g/dL RDW (11.5-14.5) % Plt Count (150-400) 10^3/uL MPV (7.4-10.4) fL Immature Gran % (Auto) (0.0-5.0) % Neut % (Auto) (50.0-70.0) % Lymph % (Auto) (20.0-40.0) % Powell % (Auto) (2.0-8.0) % Eos % (Auto) (1.0-3.0) % Baso % (Auto) (0.0-1.0) % Neut # (Auto) (2.50-7.00) 10^3/uL Lymph # (Auto) (1.00-4.00) 10^3/uL Powell # (Auto) (0.10-0.80) 10^3/uL Eos # (Auto) (0.10-0.30) 10^3/uL Baso # (Auto) (0.00-0.10) 10^3/uL Immature Gran # (Auto) (0.00-0.50) 10^3/uL Elliptocytes Sodium (136-145) mmol/L Potassium (3.3-5.3) mmol/L Chloride (98-115) mmol/L Carbon Dioxide (21.0-32.0) mmol/L Anion Gap (5-15) mmol/L BUN (6-25) mg/dL Creatinine (0.51-1.17) mg/dL Est Cr Clr Drug Dosing Estimated GFR (MDRD) mL/min Glucose (75 - 99) mg/dL Lactic Acid (0.4-2.0) mmol/L Calcium (8.7-10.3) mg/dL Total Bilirubin (0.2-1.0) mg/dL AST (15-37) U/L ALT (12-78) U/L Alkaline Phosphatase (46-116) IU/L B-Natriuretic Peptide 413 H (0-100) pg/mL Total Protein (6.4-8.2) g/dL Albumin (3.00-4.80) g/dL Specimen Type Urincc Urine Color Yellow (YELLOW) Urine Appearance Slightly cloudy H (CLEAR) Urine pH 5.5 (5.0-9.0) Ur Specific [place] 1.020 (1.005-1.030) Urine Protein Negative (NEGATIVE) mg/dL Urine Glucose (UA) Negative (NEGATIVE) mg/dL Urine Ketones Negative (NEGATIVE) mg/dL Urine Occult Blood Negative (NEGATIVE) Urine Nitrite Negative (NEGATIVE) Urine Bilirubin Negative (NEGATIVE) Urine Urobilinogen 0.2 (0.2-1.0) E.U./dL Ur Leukocyte Esterase Negative (NEGATIVE) U Hyaline Cast (Auto) Few Urine RBC 0-5 (0-5) /HPF Urine WBC 0-5 (0-5) /HPF Ur Epithelial Cells Moderate H /LPF Urine Bacteria Few (NONE TO FEW) /HPF COVID-19 (JORDANA) Negative (NEGATIVE) Med Orders - Current: Current Medications Acetaminophen (Tylenol Extra Strength) 500 mg PO BID PRN PRN Reason: Pain Acetaminophen (Tylenol Extra Strength) 500 mg PO QID RADHA Albuterol/Ipratropium (Duoneb 3.0-0.5 Mg/3 Ml) 3 ml INH Q4H PRN PRN Reason: cough/wheeze Allopurinol (Zyloprim) 100 mg PO 2000 [facility] Bisacodyl (Dulcolax) 10 mg RECTAL DAILY PRN PRN Reason: Constipation Docusate Sodium (Colace) 100 mg PO BID PRN PRN Reason: Constipation Donepezil HCl (Aricept) 10 mg PO 2000 [facility] Ferrous Sulfate (Ferrous Sulfate) 325 mg PO Q48H RADHA Furosemide (Lasix) 40 mg PO DAILY RADHA Meclizine HCl (Antivert) 25 mg PO Q4H PRN PRN Reason: Dizziness Melatonin (Melatonin) 3 mg PO 1999 [facility] Non-Formulary Medication (Aripiprazole) 2 mg PO 1999 [facility] Non-Formulary Medication (Bupropion Hcl [Wellbutrin Xl]) 300 mg PO DAILY RADHA Non-Formulary Medication (Bupropion Hcl [Wellbutrin Xl]) 150 mg PO DAILY [facility] Non-Formulary Medication (Calcium Carbonate [Calcium]) 500 mg PO 2000 [facility] Non-Formulary Medication (Calcium Carbonate [Calcium]) 500 mg PO BID PRN PRN Reason: gerd Non-Formulary Medication (Duloxetine [Cymbalta]) 60 mg PO 1999 [facility] Non-Formulary Medication (Ergocalciferol (Vitamin D2) [Vitamin D2]) 50,000 unit PO WEEKLY RADHA Non-Formulary Medication (Guaifenesin/Dextromethorphan [Guaifenesin-Dm 100-10 Mg/5 Ml]) 10 ml PO Q4H PRN PRN Reason: Cough Non-Formulary Medication (Magnesium Oxide [Magnesium Oxide]) 400 mg PO DAILY [facility] Non-Formulary Medication (Mv,Dimitri,Iron,Mn/Folic Acid/Chol [Hair, Skin And Nails Capsule]) 2 tab PO DAILY [facility] Non-Formulary Medication (Rivaroxaban) 15 mg PO 1800 [facility] Pantoprazole Sodium (Protonix) 40 mg PO 2000 [facility] Saliva Substitute (John-Stir Oral Lulu) ml MUCMEM QID PRN PRN Reason: dry throat Sodium Chloride (Saline Flush) 10 ml FLUSH Q8HR PRN PRN Reason: keep vein open Tramadol HCl (Ultram) 50 mg PO DAILY PRN PRN Reason: Pain Tramadol HCl (Ultram) 50 mg PO QID [facility] Trolamine Salicylate (Aspercreme 10%) 0 gm TOP Q1H PRN PRN Reason: Pain Last Admin: 03/10/20 03:47 Dose: 1 applic Documented by: Discontinued Medications Acetaminophen (Tylenol Extra Strength) 500 mg PO ONETIME ONE Stop: 03/09/20 23:36 Last Admin: 03/09/20 23:39 Dose: 500 mg Documented by: Sodium Chloride (Normal Saline) Confirm Administered Dose 1,000 mls @ as directed .ROUTE .STK-MED ONE Stop: 03/09/20 21:31 Last Admin: 03/09/20 22:43 Dose: Not Given Documented by: Sodium Chloride (Normal Saline) 1,000 mls @ 999 mls/hr IV .BOLUS ONE Stop: 03/09/20 22:30 Last Admin: 03/09/20 21:30 Dose: 999 mls/hr Documented by: Metoprolol Succinate (Toprol Xl) 25 mg PO ONETIME ONE Stop: 03/09/20 22:33 Last Admin: 03/09/20 22:46 Dose: 25 mg Documented by: Tramadol HCl (Ultram) 50 mg PO ONETIME ONE Stop: 03/10/20 02:57 Last Admin: 03/10/20 03:45 Dose: 50 mg Documented by: Trolamine Salicylate (Aspercreme 10%) 1 gm TOP Q1H PRN PRN Reason: Pain - Exam Quality Assessment: Supplemental Oxygen General: Alert, Oriented, Cooperative, No Acute Distress Lungs: Crackles (Fine crackles bilateral lung bases.) Cardiovascular: No Murmurs, Irregular Rhythm GI/Abdominal Exam: Normal Bowel Sounds Sepsis Event Note - Evaluation Sepsis Screening Result: No Definite Risk - Focused Exam Vital Signs: Vital Signs Temp Pulse Pulse Resp BP BP BP 03/10/20 08:00 03/10/20 07:45 03/10/20 06:44 98.5 F 98 20 92/41 L 03/10/20 02:58 97.4 F 102 H 20 95/50 L 03/09/20 23:45 80 16 104/59 L 03/09/20 23:30 98.2 F 94 12 99/60 03/09/20 22:46 104 H 106/67 03/09/20 21:55 119 H 16 110/54 L 03/09/20 21:45 122 H 18 97/54 L 03/09/20 21:20 118 H 18 96/60 03/09/20 21:05 98.0 F 120 H 20 95/50 L Pulse Ox Pulse Ox Pulse Ox 03/10/20 08:00 93 L 03/10/20 07:45 88 L 03/10/20 06:44 99 03/10/20 02:58 97 03/09/20 23:45 99 03/09/20 23:30 96 03/09/20 22:46 03/09/20 21:55 97 03/09/20 21:45 97 03/09/20 21:20 97 03/09/20 21:05 89 L - Problem List Review Problem List Initiated/Reviewed/Updated: Yes - My Orders Last 24 Hours: My Active Orders 03/10/20 08:50 Acetaminophen [Tylenol Extra Strength] 500 mg PO BID PRN Albuterol/Ipratropium [DuoNeb 3.0-0.5 MG/3 ML] 3 ml INH Q4H PRN Carboxymethylcellulose/Lytes [John-Stir Oral Lulu] 1 - 2 spray MUCMEM QID PRN Docusate Sodium [Colace] 100 mg PO BID PRN Meclizine [Antivert] 25 mg PO Q4H PRN bisacodyL [Dulcolax] 10 mg RECTAL DAILY PRN traMADol [Ultram] 50 mg PO DAILY PRN 03/10/20 08:50 Calcium Carbonate [Calcium] 500 mg PO BID PRN guaiFENesin/Dextromethorphan [Guaifenesin-Dm 100-10 mg/5 ml] 10 ml PO Q4H PRN 03/10/20 08:53 RT Aerosol Therapy [RC] ASDIRECTED 03/10/20 08:54 BMP [BASIC METABOLIC PANEL,BMP] [CHEM] Routine CBC WITH AUTO DIFF [HEME] Routine 03/10/20 09:00 Acetaminophen [Tylenol Extra Strength] 500 mg PO QID Ergocalciferol (Vitamin D2) [Vitamin D2] 50,000 unit PO WEEKLY Ferrous Sulfate 325 mg PO Q48H Furosemide [Lasix] 40 mg PO DAILY Magnesium Oxide [Magnesium Oxide] 400 mg PO DAILY Metoprolol Tartrate [Lopressor] 25 mg PO BID Mv,Dimitri,Iron,Mn/Folic Acid/Chol [Hair, Skin and Nails Capsule] 2 tab PO DAILY buPROPion HCL [Wellbutrin Xl] 150 mg PO DAILY buPROPion HCL [Wellbutrin Xl] 300 mg PO DAILY traMADol [Ultram] 50 mg PO QID 03/10/20 18:00 Rivaroxaban 15 mg PO 1800 03/10/20 20:00 ARIPiprazole 2 mg PO 1999 Calcium Carbonate [Calcium] 500 mg PO 1999 DULoxetine [Cymbalta] 60 mg PO 1999 Donepezil [Aricept] 10 mg PO 1999 Melatonin 3 mg PO 1999 Pantoprazole [ProTONIX] 40 mg PO 1999 allopurinoL [Zyloprim] 100 mg PO 1999 - Assessment Assessment:: Acute Hospital Problems: Atrial fibrillation with rapid ventricular response Hypoxia Secondary problems: Recent hx of acute renal insufficiency Back Pain CHF Constipation Dementia Acid Reflux Hypomagnesemia Insomnia Iron Deficiency Anemia Depression Pulmonary HTN Vit D deficiency Gout - Plan Plan:: Acute Hospital Problems: Atrial fibrillation with rapid ventricular response - Rate improved with Metoprolol Succinate one dose, will swich to metoprolol tartrate 25 mg PO BID - Continue Telemetry - Continue rivaroxaban Hypoxia - Continue with supplemental oxygen to keep O2 sats >90% Secondary problems: Recent hx of acute renal insufficiency - Baseline renal function per labs done on admission 03/09 - BMP 03/10 Back Pain -Continue acetaminophen and tramadol CHF - Continue furosemide Constipation - Continue bisacodyl PRN and docusate PRN Dementia - Continue donepezil Acid Reflux - Continue TUMS and pantoprazole Hypomagnesemia - Continue magnesium oxide Insomnia - Continue melatonin Iron Deficiency Anemia - Continue ferrous sulfate Depression - Continue aripiprazole, duloxetine and Wellbutrin Pulmonary HTN Vit D deficiency - Continue Ergocalciferol, recently started as an outpatient Gout - Continue allopurinol CODE STATUS: Full Code DVT prophylaxis: She is on rivaroxaban Anticipate discharge to home in 24 hours if HR and BP are stable.
[2020-03-10] MEDS ORDERED: Calcium Carbonate 500 MG Tab.Chew PO PRN (09:48)
[2020-03-10] MEDS ORDERED: guaiFENesin/Dextromethorphan 100-10 MG/5 ML Soln 5 ML Cup PO PRN (09:52)
[2020-03-10 10:13] LABS: ANION GAP 10.2 mmol/L (5-15)
[2020-03-10] MEDS: Metoprolol Tartrate 25 MG Tab PO SCH ×2 (10:20→20:47)
[2020-03-10] MEDS: Furosemide 40 MG Tab PO SCH (10:20)
[2020-03-10] MEDS: Ferrous Sulfate 325 MG Tab PO SCH ×2 (10:20→10:24)
[2020-03-10] MEDS: Acetaminophen 500 MG Tab PO SCH ×4 (10:21→20:30)
[2020-03-10] MEDS: Magnesium Oxide 500 MG Tab PO SCH (10:21)
[2020-03-10] MEDS: traMADol 50 MG Tab PO SCH ×4 (10:22→20:30)
[2020-03-10] MEDS: buPROPion 150 MG Tab.ER PO SCH (10:23)
[2020-03-10] MEDS ORDERED: Rivaroxaban 10 MG Tab PO SCH (18:00)
[2020-03-10] MEDS ORDERED: ARIPiprazole 5 MG Tab PO SCH (20:00)
[2020-03-10] MEDS ORDERED: Melatonin 3 MG Tab PO SCH (20:00)
[2020-03-10] MEDS ORDERED: Donepezil 10 MG Tab PO SCH (20:00)
[2020-03-10] MEDS ORDERED: DULoxetine 30 MG Cap PO SCH (20:00)
[2020-03-10] MEDS ORDERED: Allopurinol 100 MG Tab PO SCH (20:00)
[2020-03-10] MEDS ORDERED: Calcium Carbonate 500 MG Tab.Chew PO SCH (20:00)
[2020-03-10] MEDS ORDERED: Pantoprazole 40 MG Tab.CR PO SCH (20:00)
[2020-03-11] MEDS: buPROPion 150 MG Tab.ER PO SCH (08:06)
[2020-03-11] MEDS: Acetaminophen 500 MG Tab PO SCH ×2 (08:07→13:15)
[2020-03-11] MEDS: Magnesium Oxide 500 MG Tab PO SCH (08:09)
[2020-03-11] MEDS: traMADol 50 MG Tab PO SCH ×2 (08:09→13:15)
[2020-03-11] MEDS: Furosemide 40 MG Tab PO SCH (08:09)
[2020-03-11 08:12] LABS: ANION GAP 10.9 mmol/L (5-15)
[2020-03-11] MEDS ORDERED: Ferrous Sulfate 325 MG Tab PO SCH (09:00)
[2020-03-11] MEDS ORDERED: ERGOCALCIFEROL 50000 UNIT PO SCH (09:00)
[2020-03-11] MEDS ORDERED: buPROPion 150 MG Tab.ER PO SCH (09:00)
[2020-03-11] MEDS ORDERED: Metoprolol Tartrate 25 MG Tab PO SCH (09:38)
[2020-03-11] MEDS: Metoprolol Tartrate 25 MG Tab PO SCH (10:04)
--- NOTE | 2020-03-11 16:41 | DISCH ---
HOSPITAL COURSE: This is a 80-year-old white female who was admitted through the emergency room on March 09, 2020, with palpitations and shortness of breath. The patient was found to be tachycardic. Apparently, she was recently hospitalized for hypokalemia and anemia and had her digoxin discontinued. She remains hemodynamically stable. She was treated with metoprolol in the hospital. Her rate is well controlled. She is currently in a sinus rhythm with a ventricular rate of 30 beats per minute. She was hypoxic upon arrival in the ER and O2 was initiated. She has been maintaining O2 saturations greater than 90% on 2 L via nasal cannula. The patient states she is feeling well. She is up in the chair reading a book. She was admitted to the hospital with a diagnosis of atrial fibrillation with rapid ventricular response and hypoxia. Secondary problems of acute renal insufficiency, back pain, CHF, constipation, dementia, acid reflux, hypomagnesemia, insomnia, iron-deficiency wound, depression, pulmonary hypertension, vitamin D deficiency, and gout. PHYSICAL EXAMINATION: Today, VITAL SIGNS: Temp 98.8, pulse 64, respirations 54, blood pressure 90/37, O2 saturation is 92% on 2 L of oxygen. SKIN: Warm and dry to touch. CARDIAC: Reveals S1, S2 to be normal. Rate and rhythm are regular. No murmur, click, or gallop is auscultated. LUNGS: Clear. ABDOMEN: Soft, nontender. Bowel sound is present in all four quadrants. EXTREMITIES: There is no pedal edema. IMPRESSION: 1. Atrial fibrillation with rapid ventricular response, improved. She will be discharged with metoprolol 12.5 mg b.i.d. with parameters to hold if her pulse is less than 60 or if her systolic blood pressure is less than 90. 2. Hypoxia. This has improved. She can have O2 on an as-needed basis at the snf to keep O2 sats greater than 92%. We will follow on snf rounds. 3. Recent acute renal insufficiency. BUN and creatinine are 26 and 1.41 respectively today with a GFR of 36. 4. Back pains. She is taking acetaminophen as well as tramadol. 5. Congestive heart failure, continue furosemide. 6. Constipation. Continue bisacodyl p.r.n. and docusate p.r.n. 7. Dementia. Continue donepezil. 8. Acid reflux. Continue Tums and proton pump inhibitor. 9. Hypomagnesemia. Continue magnesium oxide. 10.Insomnia, continue melatonin. 11.Iron-deficiency anemia, continue ferrous sulfate. 12.Depression. Continue aripiprazole, duloxetine, as well as Wellbutrin. 13.Pulmonary hypertension. 14.Vitamin D deficiency, continue ergocalciferol, recently started as an outpatient. 15.Gout, continue allopurinol. /[id number]/MODL
== END 2020-03-11 13:27 ==
LOC: KA.ED 20:59 → KA.MS 22:39
PROVIDERS: ADMIT Physician Assistant Medical; ATTEND Internal Medicine
DX: I48.20 Chronic atrial fibrillation, unspecified (principal); N28.9 Disorder of kidney and ureter, unspecified; I11.0 Hypertensive heart disease with heart failure; I50.9 Heart failure, unspecified; K21.9 Gastro-esophageal reflux disease without esophagitis; G30.9 Alzheimer's disease, unspecified; F02.80 Dementia in other diseases classified elsewhere, unspecified severity, without behavioral disturbance, psychotic disturbance, mood disturbance, and anxiety; F41.9 Anxiety disorder, unspecified; E78.00 Pure hypercholesterolemia, unspecified; F32.9 Major depressive disorder, single episode, unspecified; F31.81 Bipolar II disorder; R09.02 Hypoxemia; M54.9 Dorsalgia, unspecified; K59.00 Constipation, unspecified; E83.42 Hypomagnesemia; G47.00 Insomnia, unspecified; D50.9 Iron deficiency anemia, unspecified; I27.20 Pulmonary hypertension, unspecified; M10.9 Gout, unspecified; E55.9 Vitamin D deficiency, unspecified; Z20.828 Contact with and (suspected) exposure to other viral communicable diseases; Z88.5 Allergy status to narcotic agent; Z88.8 Allergy status to other drugs, medicaments and biological substances; Z79.899 Other long term (current) drug therapy; Z88.1 Allergy status to other antibiotic agents; Z79.01 Long term (current) use of anticoagulants
CPT/HCPCS: 36415; 71045; 80048; 80053; 81001; 83605; 83880; 85025; 87040; 93005; 96360; 99217; 99220; 99225; 99285-25; A9270-GY; G0378; J7030; U0002

== ENCOUNTER 2020-09-23 22:41 | Inpatient (IN) | payer MEDICARE, BC, MEDICAID ==
[2020-09-23] MEDS ORDERED: Sodium Chloride 0.9% 10 ML Syringe FLUSH PRN (23:11)
--- NOTE | 2020-09-23 23:13 | EDM.PDOC ---
ED HPI GENERAL MEDICAL PROBLEM - General Chief Complaint: General Stated Complaint: Shortness of breath Time Seen by Provider: 09/23/20 23:00 Source of Information: Reports: Patient History Limitations: Reports: No Limitations - History of Present Illness INITIAL COMMENTS - FREE TEXT/NARRATIVE: 80 YO WF PRESENTS TO ER BY EMS FROM LONG-TERM WITH COMPLAINTS OF DECREASED OXYGENATION AND INCREASED LOWER EXTREMITY SWELLING PER LONG-TERM. PT WITH HISTORY OF ATRIAL FIBRILLATION, RENAL INSUFFICIENCY AND HYPERKALEMIA. ACCORDING TO LONG-TERM PATIENT HAS HAD AN 11 LB WEIGHT GAIN OVER THE LAST 2 WEEKS AND HAS DEVELOPED WORSENING SHORTNESS OF BREATH OVER THIS TIME. PT CURRENTLY ON 3L OF O2 BY [place] AND SAO2-96%. PT DENIES CHEST PAIN, OR DIAPHORESIS. PT REPORTS SOME DIFFICULTY IN BREATHING BUT STATES SHE FEELS BETTER ON OXYGEN. NO RECENT ILLNESSES, NO FEVER/CHILLS, NO NAUSEA/VOMITING. Duration: Week(s): (2) Location: Reports: Generalized Severity: Moderate Improves with: Reports: Rest Worsens with: Reports: Movement Associated Symptoms: Reports: Malaise, Shortness of Breath. Denies: Chest Pain, Cough, cough w sputum, Fever/Chills Back Pain Score (Numeric/FACES): 5 - Related Data Allergies Allergy/AdvReac Type Severity Reaction Status Date / Time ceftriaxone Allergy Cannot Verified 09/24/20 00:04 Remember hydrocodone Allergy Cannot Verified 09/24/20 00:04 Remember ibuprofen Allergy Cannot Verified 09/24/20 00:04 Remember ofloxacin Allergy Cannot Verified 09/24/20 00:04 Remember propoxyphene Allergy Cannot Verified 09/24/20 00:04 Remember Home Meds: Home Meds Acetaminophen 500 mg PO BID PRN 05/26/19 [History] DULoxetine [Cymbalta] 60 mg PO 199905/26/19 [History] Donepezil HCl 10 mg PO BID 05/26/19 [History] Ferrous Sulfate 325 mg PO Q48H 05/26/19 [History] Furosemide 40 mg PO DAILY 05/26/19 [History] Magnesium Oxide 400 mg PO DAILY 05/26/19 [History] Rivaroxaban [Xarelto] 15 mg PO 1800 05/26/19 [History] buPROPion HCL [Wellbutrin Xl] 150 mg PO DAILY 05/26/19 [History] traMADol HCl [Tramadol HCl] 50 mg PO QID 05/26/19 [History] ARIPiprazole [Abilify] 10 mg PO 199912/27/19 [History] Acetaminophen [Tylenol Extra Strength] 500 mg PO QID 12/27/19 [History] Albuterol/Ipratropium [DuoNeb 3.0-0.5 MG/3 ML] 3 ml INH Q4H PRN 12/27/19 [History] Calcium Carbonate [Calcium] 500 mg PO 199912/27/19 [History] Calcium Carbonate [Calcium] 500 mg PO BID PRN 12/27/19 [History] buPROPion HCL [Wellbutrin Xl] 300 mg PO DAILY 12/27/19 [History] traMADol [Ultram] 50 mg PO DAILY PRN 12/27/19 [History] Meclizine HCl 25 mg PO Q4H PRN 03/04/20 [History] Melatonin 6 mg PO 199903/04/20 [History] allopurinoL [Zyloprim] 100 mg PO 199903/09/20 [History] Metoprolol Tartrate [Lopressor] 12.5 mg PO BID tablet 03/11/20 [Rx] Pantoprazole [ProTONIX] 40 mg PO 1999 tab.cr 03/11/20 [Rx] Cholecalciferol (Vitamin D3) [Vitamin D3] 4,000 unit PO DAILY 09/08/20 [History] Ascorbic Acid/Vitamin E/Biotin [Hair Skin Nails-Biotin Gummies] 2 each PO DAILY 09/24/20 [History] Dextromethorphan/guaiFENesin [Robitussin DM] 10 ml PO Q4HR PRN 09/24/20 [History] Docusate Sodium [Colace] 100 mg PO BID PRN 09/24/20 [History] Past Medical History HEENT History: Reports: Cataract, Impaired Vision Cardiovascular History: Reports: Afib, Arrhythmia, Heart Failure, Heart Murmur, High Cholesterol, Hypertension, SOB on Exertion Other Cardiovascular History: NONRHEUMATIC MITRAL VALVE INSUFFICIENCY. RHEUMATIC TRICUSPID INSUFFICIENCY. HYPOMAGNESIUM. HYPERKALEMIA Respiratory History: Reports: None, Other (See Below) Other Respiratory History: Pulm HTN Gastrointestinal History: Reports: Cholelithiasis, Chronic Diarrhea, GERD, GI Bleed Genitourinary History: Reports: Chronic Renal Insuffiency, Urinary Incontinence, UTI, Recurrent, Other (See Below) Other Genitourinary History: Acute v. Chronic [employer] History: Reports: Musculoskeletal History: Reports: Back Pain, Chronic, Fibromyalgia, Neck Pain, Chronic, Osteoporosis Other Musculoskeletal History: SCOLIOSIS Neurological History: Reports: Alzheimers Disease, Concussion, TIA Psychiatric History: Reports: Anxiety, Depression Other Psychiatric History: UNSPECIFIED PSYCHOSIS. BIPOLAR II DISORDER Endocrine/Metabolic History: Reports: Osteoporosis Hematologic History: Reports: Anemia, Blood Transfusion(s), Iron Deficiency Oncologic (Cancer) History: Reports: None Dermatologic History: Reports: None - Infectious Disease History Infectious Disease History: Reports: MRSA Other Infectious Disease History: MRSA IN BACK POST SPINAL SURGERY - Past Surgical History HEENT Surgical History: Reports: Cataract Surgery, Oral Surgery Cardiovascular Surgical History: Reports: None Respiratory Surgical History: Reports: None GI Surgical History: Reports: Appendectomy, Bariatric Procedure, Cholecystectomy, Colonoscopy, EGD, Lysis of Adhesions Female Surgical History: Reports: Cystectomy, Hysterectomy, Salpingo- Oophorectomy Endocrine Surgical History: Reports: None Neurological Surgical History: Reports: Lumbar Spine Other Neurological Surgeries/Procedures: jose in lumbar region - history of mrsa 5 fusions Musculoskeletal Surgical History: Reports: Knee Replacement, Shoulder Surgery Other Musculoskeletal Surgeries/Procedures:: right shoulder reconstructed. right knee replacement Oncologic Surgical History: Reports: None Dermatological Surgical History: Reports: None Social & Family History - Family History Family Medical History: No Pertinent Family History - Caffeine Use Caffeine Use: Reports: Coffee, Soda ED ROS GENERAL - Review of Systems Review Of Systems: See Below Constitutional: Reports: No Symptoms HEENT: Reports: No Symptoms Respiratory: Reports: Shortness of Breath Cardiovascular: Reports: No Symptoms Endocrine: Reports: No Symptoms GI/Abdominal: Reports: No Symptoms : Reports: No Symptoms Musculoskeletal: Reports: No Symptoms Skin: Reports: No Symptoms Neurological: Reports: No Symptoms Psychiatric: Reports: No Symptoms Hematologic/Lymphatic: Reports: No Symptoms ED EXAM, GENERAL - Physical Exam Exam: See Below Exam Limited By: No Limitations General Appearance: Alert, WD/WN, No Apparent Distress Head: Atraumatic, Normocephalic Neck: Normal Inspection, Supple, Non-Tender, Full Range of Motion Respiratory/Chest: No Respiratory Distress, No Accessory Muscle Use, Chest Non- Tender, Rales Cardiovascular: Normal Peripheral Pulses, Regular Rate, Rhythm, No Gallop, No Rub, Bradycardia, Systolic Murmur GI/Abdominal: Normal Bowel Sounds, Soft, Non-Tender, No Organomegaly, No Distention, No Abnormal Bruit, No Mass Extremities: Normal Inspection, Normal Range of Motion, Non-Tender, Normal Capillary Refill Neurological: Alert, Oriented, CN II-XII Intact, Normal Cognition, Normal Re flexes, No Motor/Sensory Deficits Psychiatric: Normal Mood, Flat Affect Skin Exam: Warm, Dry, Intact, Normal Color, No Rash Lymphatic: No Adenopathy #1 Interpretation EKG Date: 09/23/20 Time: 23:07 Rhythm: NSR Rate (Beats/Min): 62 [place]: Normal P-Wave: Present QRS: Normal ST-T: Normal QT: Prolonged Course - Vital Signs Last Recorded V/S: Last Vital Signs Temp 97 F 09/24/20 00:04 Pulse 52 L 09/24/20 00:04 Resp 12 09/24/20 00:04 BP 99/53 L 09/24/20 00:04 Pulse Ox 95 09/24/20 00:04 - Orders/Labs/Meds Orders: Active Orders 24 hr Category Date Time Status Patient Status Manage Transfer [TRANSFER] Routine ADT 09/24/20 00:27 Active Cardiac Monitoring [RC] . DIRECTED Care 09/23/20 23:11 Active EKG Documentation Completion [RC] ASDIRECTED Care 09/23/20 23:11 Active Peripheral IV Care [RC] . DIRECTED Care 09/23/20 23:11 Active RT Aerosol Therapy [RC] ASDIRECTED Care 09/24/20 00:38 Active Chest 1V Frontal [CR] Stat Exams 09/23/20 23:11 Ordered TYPE AND SCREEN [BBK] Stat Lab 09/24/20 00:02 Ordered ARIPiprazole Med 09/24/20 20:00 Active 10 mg PO 2000 Albuterol/Ipratropium [DuoNeb 3.0-0.5 MG/3 ML] Med 09/24/20 00:36 Active 3 ml INH Q4H PRN Ascorbic Acid/Vitamin E/Biotin [Hair Skin Nails-Biotin Med 09/24/20 09:00 Active Gummies] 2 each PO DAILY Cholecalciferol (Vitamin D3) [Vitamin D3] Med 09/24/20 09:00 Active 4,000 unit PO DAILY DULoxetine [Cymbalta] Med 09/24/20 20:00 Active 60 mg PO 2000 Dextromethorphan/guaiFENesin [Robitussin DM] Med 09/24/20 00:36 Active 10 ml PO Q4HR PRN Docusate Sodium [Colace] Med 09/24/20 00:36 Active 100 mg PO BID PRN Donepezil [Aricept] Med 09/24/20 09:00 Active 10 mg PO BID Ferrous Sulfate Med 09/24/20 00:45 Active 325 mg PO Q48H Furosemide [Lasix] Med 09/24/20 05:00 Active 40 mg IVPUSH DAILY Magnesium Oxide [Magnesium Oxide] Med 09/24/20 09:00 Active 400 mg PO DAILY Meclizine [Antivert] Med 09/24/20 00:36 Active 25 mg PO Q4H PRN Melatonin Med 09/24/20 20:00 Active 6 mg PO 1999 Metoprolol Tartrate [Lopressor] Med 09/24/20 09:00 Active 12.5 mg PO BID Pantoprazole [ProTONIX] Med 09/24/20 20:00 Ordered 40 mg PO 2000 Rivaroxaban Med 09/24/20 18:00 Ordered 15 mg PO 1800 Sodium Chloride 0.9% [Saline Flush] Med 09/23/20 23:11 Active 10 ml FLUSH Q8HR PRN allopurinoL [Zyloprim] Med 09/24/20 20:00 Active 100 mg PO 2000 buPROPion HCL [Wellbutrin Xl] Med 09/24/20 09:00 Active 150 mg PO DAILY buPROPion HCL [Wellbutrin Xl] Med 09/24/20 09:00 Active 300 mg PO DAILY Peripheral IV Insertion Adult [OM.PC] Routine Oth 09/23/20 23:11 Ordered Transfuse PRBC [Transfuse Red Blood Cells] [COMM] Stat Oth 09/24/20 00:18 Ordered Resuscitation Status Routine Resus Stat 09/24/20 00:31 Ordered EKG 12 Lead [EK] Stat Ther 09/23/20 23:11 Ordered Medication Orders Albuterol/Ipratropium (Duoneb 3.0-0.5 Mg/3 Ml) 3 ml INH Q4H PRN PRN Reason: cough/wheeze Allopurinol (Zyloprim) 100 mg PO 2000 [facility] Docusate Sodium (Colace) 100 mg PO BID PRN PRN Reason: Constipation Donepezil HCl (Aricept) 10 mg PO BID [facility] Ferrous Sulfate (Ferrous Sulfate) 325 mg PO Q48H [facility] Furosemide (Lasix) 40 mg IVPUSH DAILY [facility] Guaifenesin/Phenylephrine HCl (Robitussin Dm) 10 ml PO Q4HR PRN PRN Reason: Cough Meclizine HCl (Antivert) 25 mg PO Q4H PRN PRN Reason: Dizziness Melatonin (Melatonin) 6 mg PO 2000 [facility] Metoprolol Tartrate (Lopressor) 12.5 mg PO BID [facility] Non-Formulary Medication (Aripiprazole) 10 mg PO 2000 [facility] Non-Formulary Medication (Ascorbic Acid/Vitamin E/Biotin [Hair Skin Nails-Biotin Gummies]) 2 each PO DAILY [facility] Non-Formulary Medication (Bupropion Hcl [Wellbutrin Xl]) 300 mg PO DAILY [facility] Non-Formulary Medication (Bupropion Hcl [Wellbutrin Xl]) 150 mg PO DAILY [facility] Non-Formulary Medication (Cholecalciferol (Vitamin D3) [Vitamin D3]) 4,000 unit PO DAILY [facility] Non-Formulary Medication (Duloxetine [Cymbalta]) 60 mg PO 2000 [facility] Non-Formulary Medication (Magnesium Oxide [Magnesium Oxide]) 400 mg PO DAILY [facility] Non-Formulary Medication (Rivaroxaban) 15 mg PO 1800 [facility] Pantoprazole Sodium (Protonix) 40 mg PO 2000 [facility] Sodium Chloride (Saline Flush) 10 ml FLUSH Q8HR PRN PRN Reason: keep vein open Last Admin: 09/24/20 00:39 Dose: 10 ml Documented by: Labs: Laboratory Tests 09/23/20 09/23/20 09/23/20 Range/Units 23:40 23:40 23:40 WBC 6.14 (5.00-10.00) 10^3/uL RBC 2.30 L (3.80-5.50) 10^6/uL Hgb 7.3 L (12.0-16.0) g/dL Hct 25.0 L (37.0-47.0) % MCV 108.7 H (82.0-92.0) fL MCH 31.7 H (27.0-31.0) pg MCHC 29.2 L (32.0-36.0) g/dL RDW 22.0 H (11.5-14.5) % Plt Count 174 (150-400) 10^3/uL MPV 9.4 (7.4-10.4) fL Add Manual Diff Yes Neutrophils % (Manual) 64 (50-70) % Lymphocytes % (Manual) 17 L (20-40) % Monocytes % (Manual) 1 L (2-8) % Eosinophils % (Manual) 18 H (1-3) % Absolute Neutrophils 3.93 Lymphocytes # (Manual) 1.04 Monocytes # (Manual) 0.06 Eosinophils # (Manual) 1.11 PT 11.1 (9.2-11.2) SEC INR 1.1 (0.9-1.1) APTT 34.1 H (22.8-31.4) SEC Sodium 136 (136-145) mmol/L Potassium 5.3 H (3.5-5.1) mmol/L Chloride 104 (98-107) mmol/L Carbon Dioxide 23.4 (21.0-32.0) mmol/L Anion Gap 13.9 (5-15) mmol/L BUN 58 H* (7-18) mg/dL Creatinine 1.98 H (0.51-1.17) mg/dL Est Cr Clr Drug Dosing 21.92 mL/min Estimated GFR (MDRD) 24 mL/min Glucose 99 (70-140) mg/dL Calcium 8.4 L (8.7-10.3) mg/dL Total Bilirubin 0.3 (0.2-1.0) mg/dL AST 17 (15-37) U/L ALT 17 (14-63) U/L Alkaline Phosphatase 165 H (46-116) U/L Creatine Kinase 63 (26-276) U/L CK-MB (CK-2) 1.31 (0.00-3.60) ng/mL Troponin I < 0.017 (0.000-0.056) ng/mL B-Natriuretic Peptide 934 H (0-100) pg/mL Total Protein 6.1 L (6.4-8.2) g/dL Albumin 2.82 L (3.40-5.00) g/dL Meds: Medications Generic Name Dose Route Start Last Admin Trade Name Freq PRN Reason Stop Dose Admin Albuterol/Ipratropium 3 ml 09/24/20 00:36 Duoneb 3.0-0.5 Mg/3 Ml INH Q4H PRN cough/wheeze Allopurinol 100 mg 09/24/20 20:00 Zyloprim PO 1999 [facility] Docusate Sodium 100 mg 09/24/20 00:36 Colace PO BID PRN Constipation Donepezil HCl 10 mg 09/24/20 09:00 Aricept PO BID [facility] Ferrous Sulfate 325 mg 09/24/20 00:45 Ferrous Sulfate PO Q48H [facility] Furosemide 40 mg 09/24/20 05:00 Lasix IVPUSH DAILY [facility] Guaifenesin/Phenylephrine HCl 10 ml 09/24/20 00:36 Robitussin Dm PO Q4HR PRN Cough Meclizine HCl 25 mg 09/24/20 00:36 Antivert PO Q4H PRN Dizziness Melatonin 6 mg 09/24/20 20:00 Melatonin PO 1999 [facility] Metoprolol Tartrate 12.5 mg 09/24/20 09:00 Lopressor PO BID [facility] Non-Formulary Medication 10 mg 09/24/20 20:00 Aripiprazole PO 1999 [facility] Non-Formulary Medication 2 each 09/24/20 09:00 Ascorbic Acid/Vitamin E/Biotin [Hair Skin Nails-Biotin Gummies] PO DAILY [facility] Non-Formulary Medication 300 mg 09/24/20 09:00 Bupropion Hcl [Wellbutrin Xl] PO DAILY [facility] Non-Formulary Medication 150 mg 09/24/20 09:00 Bupropion Hcl [Wellbutrin Xl] PO DAILY [facility] Non-Formulary Medication 4,000 unit 09/24/20 09:00 Cholecalciferol (Vitamin D3) [Vitamin D3] PO DAILY [facility] Non-Formulary Medication 60 mg 09/24/20 20:00 Duloxetine [Cymbalta] PO 1999 [facility] Non-Formulary Medication 400 mg 09/24/20 09:00 Magnesium Oxide [Magnesium Oxide] PO DAILY [facility] Non-Formulary Medication 15 mg 09/24/20 18:00 Rivaroxaban PO 1800 [facility] Pantoprazole Sodium 40 mg 09/24/20 20:00 Protonix PO 1999 [facility] Sodium Chloride 10 ml 09/23/20 23:11 09/24/20 00:39 Saline Flush FLUSH 10 ml Q8HR PRN Administration keep vein open Discontinued Medications Generic Name Dose Route Start Last Admin Trade Name Freq PRN Reason Stop Dose Admin Bumetanide 1 mg 09/24/20 00:25 09/24/20 00:38 Bumex IVPUSH 09/24/20 00:26 1 mg ONETIME ONE Administration - Radiology Interpretation Free Text/Narrative:: CXR- PROMINENCE OF LEFT HILUM-RECOMMENDING NONURGENT CT CHEST; NO PLEURAL EFFUSION; NO PROFOUND CHF Departure - Departure Time of Disposition: 00:40 Disposition: Admitted As Inpatient 68 Condition: Poor Clinical Impression: Profound anemia, Hypoxemia, CHF (congestive heart failure) ARF (acute renal failure) Qualifiers: Acute renal failure type: unspecified Qualified Code(s): N17.9 - Acute kidney failure, unspecified - Discharge Information Forms: ED Department Discharge Sepsis Event Note (ED) - Focused Exam Vital Signs: Vital Signs Temp Pulse Resp BP Pulse Ox 09/24/20 00:04 97 F 52 L 12 99/53 L 95 09/23/20 23:26 52 L 16 109/58 L 93 L 09/23/20 23:00 55 L 14 101/56 L 97 09/23/20 22:45 96.9 F 55 L 20 96/54 L 95 - My Orders Last 24 Hours: My Active Orders 09/23/20 23:11 Cardiac Monitoring [RC] . DIRECTED EKG Documentation Completion [RC] ASDIRECTED Peripheral IV Care [RC] . DIRECTED Chest 1V Frontal [CR] Stat Sodium Chloride 0.9% [Saline Flush] 10 ml FLUSH Q8HR PRN Peripheral IV Insertion Adult [OM.PC] Routine EKG 12 Lead [EK] Stat 09/24/20 00:02 TYPE AND SCREEN [BBK] Stat 09/24/20 00:18 Transfuse PRBC [Transfuse Red Blood Cells] [COMM] Stat 09/24/20 00:27 Patient Status Manage Transfer [TRANSFER] Routine 09/24/20 00:31 Resuscitation Status Routine 09/24/20 00:36 Albuterol/Ipratropium [DuoNeb 3.0-0.5 MG/3 ML] 3 ml INH Q4H PRN Dextromethorphan/guaiFENesin [Robitussin DM] 10 ml PO Q4HR PRN Docusate Sodium [Colace] 100 mg PO BID PRN Meclizine [Antivert] 25 mg PO Q4H PRN 09/24/20 00:38 RT Aerosol Therapy [RC] ASDIRECTED 09/24/20 00:45 Ferrous Sulfate 325 mg PO Q48H 09/24/20 05:00 Furosemide [Lasix] 40 mg IVPUSH DAILY 09/24/20 09:00 Ascorbic Acid/Vitamin E/Biotin [Hair Skin Nails-Biotin Gummies] 2 each PO DAILY Cholecalciferol (Vitamin D3) [Vitamin D3] 4,000 unit PO DAILY Donepezil [Aricept] 10 mg PO BID Magnesium Oxide [Magnesium Oxide] 400 mg PO DAILY Metoprolol Tartrate [Lopressor] 12.5 mg PO BID buPROPion HCL [Wellbutrin Xl] 150 mg PO DAILY buPROPion HCL [Wellbutrin Xl] 300 mg PO DAILY 09/24/20 18:00 Rivaroxaban 15 mg PO 1800 09/24/20 20:00 ARIPiprazole 10 mg PO 1999 DULoxetine [Cymbalta] 60 mg PO 1999 Melatonin 6 mg PO 1999 Pantoprazole [ProTONIX] 40 mg PO 1999 allopurinoL [Zyloprim] 100 mg PO 1999 - Assessment/Plan Admission H&P: Please use this note as an admission H&P Last 24 Hours: My Active Orders 09/23/20 23:11 Cardiac Monitoring [RC] . DIRECTED EKG Documentation Completion [RC] ASDIRECTED Peripheral IV Care [RC] . DIRECTED Chest 1V Frontal [CR] Stat Sodium Chloride 0.9% [Saline Flush] 10 ml FLUSH Q8HR PRN Peripheral IV Insertion Adult [OM.PC] Routine EKG 12 Lead [EK] Stat 09/24/20 00:02 TYPE AND SCREEN [BBK] Stat 09/24/20 00:18 Transfuse PRBC [Transfuse Red Blood Cells] [COMM] Stat 09/24/20 00:27 Patient Status Manage Transfer [TRANSFER] Routine 09/24/20 00:31 Resuscitation Status Routine 09/24/20 00:36 Albuterol/Ipratropium [DuoNeb 3.0-0.5 MG/3 ML] 3 ml INH Q4H PRN Dextromethorphan/guaiFENesin [Robitussin DM] 10 ml PO Q4HR PRN Docusate Sodium [Colace] 100 mg PO BID PRN Meclizine [Antivert] 25 mg PO Q4H PRN 09/24/20 00:38 RT Aerosol Therapy [RC] ASDIRECTED 09/24/20 00:45 Ferrous Sulfate 325 mg PO Q48H 09/24/20 05:00 Furosemide [Lasix] 40 mg IVPUSH DAILY 09/24/20 09:00 Ascorbic Acid/Vitamin E/Biotin [Hair Skin Nails-Biotin Gummies] 2 each PO DA [facility] Cholecalciferol (Vitamin D3) [Vitamin D3] 4,000 unit PO DAILY Donepezil [Aricept] 10 mg PO BID Magnesium Oxide [Magnesium Oxide] 400 mg PO DAILY Metoprolol Tartrate [Lopressor] 12.5 mg PO BID buPROPion HCL [Wellbutrin Xl] 150 mg PO DAILY buPROPion HCL [Wellbutrin Xl] 300 mg PO DAILY 09/24/20 18:00 Rivaroxaban 15 mg PO 1800 09/24/20 20:00 ARIPiprazole 10 mg PO 1999 DULoxetine [Cymbalta] 60 mg PO 1999 Melatonin 6 mg PO 1999 Pantoprazole [ProTONIX] 40 mg PO 1999 allopurinoL [Zyloprim] 100 mg PO 1999 Assessment:: 1. PROFOUND ANEMIA 2. HYPOXIA 3. ACUTE RENAL FAILURE 4. CHF EXACERBATION Plan: 1. ADMIT TO MEDICINE- DR REESE 2. TRANSFUSE 1 UNIT PRBC NOW 3. CONTINUE SUPPLEMENTAL OXYGEN 4. CONSIDER CT CHEST FOR EVALUATION OF LEFT HILAR ENLARGEMENT 5. DNR/DNI 6. SUPPORTIVE CARE
[2020-09-24 00:09] LABS: ANION GAP 13.9 mmol/L (5-15); CHLORIDE,CL 104 mmol/L (98-107); SODIUM,NA 136 mmol/L (136-145)
[2020-09-24] MEDS ORDERED: Bumetanide 1 MG/4 ML MDV IVPUSH ONE (00:25)
[2020-09-24 00:30] LABS: PTT,PARTIAL THROMBOPLSTIN TIME 34.1 SEC (22.8-31.4)
[2020-09-24] MEDS ORDERED: Docusate Sodium 100 MG Cap PO PRN (00:36)
[2020-09-24] MEDS ORDERED: Albuterol/Ipratropium 3.0-0.5 MG/3 ML Neb Soln INH PRN (00:36)
[2020-09-24] MEDS ORDERED: Meclizine 25 MG Tab PO PRN (00:36)
[2020-09-24] MEDS ORDERED: guaiFENesin/Dextromethorphan 100-10 MG/5 ML Soln 5 ML Cup PO PRN (00:36)
[2020-09-24] MEDS ORDERED: Ferrous Sulfate 325 MG Tab PO SCH (00:45)
[2020-09-24] MEDS ORDERED: Sodium Chloride 0.9% 250 ML IV SCH (04:00)
[2020-09-24] MEDS ORDERED: Furosemide 40 MG/4 ML VIAL IVPUSH SCH (05:00)
--- NOTE | 2020-09-24 08:13 | CR ---
[id number] RAD/RAD Chest PA or AP 1V EXAM: RAD Chest PA or AP 1V INDICATION: SHORTNESS OF BREATH COMPARISON: March 09, 2020. DISCUSSION: Cardiomediastinal silhouette is enlarged but stable. Low lung volumes. Prominence of the left perihilar region. No pneumothorax or pleural effusion. Bibasilar subsegmental atelectasis and/or scarring. Partially visualized post surgical changes of the thoracic spine. IMPRESSION: Prominence of the left perihilar region. Underlying mass is not excluded. CT of the chest with contrast is recommended for further evaluation. Cesar Nice DO 09/24/20 0812 Thank you for allowing us to participate in the care of your patient.
[2020-09-24 08:44] LABS: ANION GAP 14.8 mmol/L (5-15); CHLORIDE,CL 108 mmol/L (98-107); SODIUM,NA 141 mmol/L (136-145)
[2020-09-24] MEDS ORDERED: Non-Formulary Medication 1 Each (Magnesium Oxide [Magnesium Oxide] 400 MG) PO SCH (09:00)
[2020-09-24] MEDS ORDERED: CHOLECALCIFEROL 4000 UNIT PO SCH (09:00)
[2020-09-24] MEDS ORDERED: Non-Formulary Medication 1 Each (Bupropion Hcl [Wellbutrin Xl] 300 MG) PO SCH (09:00)
[2020-09-24] MEDS ORDERED: Non-Formulary Medication 1 Each (Bupropion Hcl [Wellbutrin Xl] 150 MG) PO SCH (09:00)
[2020-09-24] MEDS: buPROPion 150 MG Tab.ER PO SCH (09:32)
[2020-09-24] MEDS: Cholecalciferol (Vitamin D3) 25 MCG Tab PO SCH (09:33)
[2020-09-24] MEDS: Donepezil 10 MG Tab PO SCH ×2 (09:33→21:22)
[2020-09-24] MEDS: Metoprolol Tartrate 25 MG Tab PO SCH ×2 (09:35→21:23)
[2020-09-24] MEDS: Magnesium Oxide 500 MG Tab PO SCH (10:25)
--- NOTE | 2020-09-24 11:57 | PN ---
PATIENT NAME: BRAULIO PATE SUBJECTIVE: She is a resident at [facility] in [place], [place]. She was brought by EMS to the ER from the jail with complaints of decreased oxygenation and increased lower extremity swelling per jail report. The patient does have a history of atrial fibrillation, renal insufficiency, and hyperkalemia. According to the jail staff, the patient has had an 11-pound weight gain over the last 2 weeks and has developed worsening shortness of breath over this time. In the ER, the patient was on 3 L of oxygen by nasal cannula and SaO2 of 96%. The patient denied any chest pain or diaphoresis. The patient did report some difficulty breathing, but states she feels better with the oxygen. No recent illnesses, fever, chills. No nausea or vomiting. She did have a 12-lead EKG in the emergency room which showed a junctional rhythm with occasional PVC. She also has a prolonged QT interval. She is being monitored by telemetry and it does show junctional rhythm in the 50s to 60s. No ectopics have been appreciated. The patient was also found to be profoundly anemic with a hemoglobin of 7.3. She was given 1 unit of packed RBCs. Other lab results from the emergency room include low RBC of 2.30. White count was normal. PT/INR was normal. Comprehensive metabolic panel did show a potassium of 5.3 with a normal range being 3.5-5.1. This is not a critical value. Creatinine was 1.8, BUN is 58. These are both elevated. The patient does have a history of renal insufficiency. Calcium was low at 8.7 with a normal range being 8.7-10.3. Alkaline phosphatase was elevated at 165 with a normal range being 46-116. Troponin was negative. BNP was 934. Total protein and albumin are low at 6.1 and 2.82. Chest x-ray showed prominence of left hilum recommending nonurgent CT scan. No pleural effusion. No profound congestive heart failure. The patient has a history of depression and anxiety and is taking duloxetine and bupropion. She has dementia and is taking donepezil. She has iron-deficiency anemia and is taking ferrous sulfate. She has congestive heart failure and is taking furosemide for the same. She is also on metoprolol. She has a history of hypomagnesemia and is taking a magnesium supplement. She has atrial fibrillation and is taking metoprolol as well as Xarelto. She has chronic pain for which she takes tramadol. In addition to the duloxetine and bupropion for depression, she is also on Abilify. She does receive DuoNebs as needed. For intermittent dizziness, she is prescribed meclizine. For insomnia, she is using melatonin. For gout, she takes allopurinol. She is on multiple dietary supplements including calcium, vitamin D, and vitamin C. When I go into the room, the patient is asked how she is feeling and she says a little better. She did not open her eyes. She slept through most of the exam. OBJECTIVE: VITAL SIGNS: On exam, temperature is 96.5, pulse 60, respirations 16, blood pressure 98/45, O2 saturation is 93% on 2 L of oxygen. GENERAL: She appears to be in no acute distress. SKIN: Warm, pale, dry to touch. CARDIAC: Bradycardia with no appreciable murmurs, clicks, or gallops. LUNGS: Difficult to assess, but seem clear to anterior auscultation. The patient is sound asleep. ABDOMEN: Soft, nontender. Bowel sounds present in all 4 quadrants. There is trace pedal edema. IMPRESSION: 1. Profound anemia. She did receive 1 unit of packed RBCs. Her hemoglobin improved to 8.0 this morning. We will check another one at 4 p.m. this afternoon. 2. Hypoxia. She is oxygenating well with supplemental oxygen. 3. Acute on chronic renal failure. This is a chronic problem for this patient. 4. Congestive heart failure exacerbation. 5. Abnormal x-ray with some left hilar enlargement. A CT may be entertained, however, we will have to check with the radiologist in regard to use of contrast due to the patient's renal function. 6. Depression with anxiety. Continue duloxetine as well as bupropion and Abilify. The patient is a DNR/DNI. We will improve her and optimize her physical condition with plans to discharge back to the jail when appropriate. /[id number]/MODL
[2020-09-24] MEDS: Rivaroxaban 10 MG Tab PO SCH (18:14)
[2020-09-24] MEDS: Pantoprazole 40 MG Tab.CR PO SCH (19:46)
[2020-09-24] MEDS: Melatonin 3 MG Tab PO SCH (19:46)
[2020-09-24] MEDS: DULoxetine 30 MG Cap PO SCH (19:46)
[2020-09-24] MEDS: Allopurinol 100 MG Tab PO SCH (19:47)
[2020-09-24] MEDS: ARIPiprazole 5 MG Tab PO SCH (19:47)
[2020-09-24] MEDS ORDERED: ARIPIPRAZOLE 10 MG PO SCH (20:00)
[2020-09-24] MEDS ORDERED: Non-Formulary Medication 1 Each (Duloxetine [Cymbalta] 60 MG) PO SCH (20:00)
[2020-09-25] MEDS: Acetaminophen 325 MG Tab PO PRN ×3 (03:16→21:29)
[2020-09-25 07:42] LABS: ANION GAP 14.1 mmol/L (5-15)
[2020-09-25] MEDS: Furosemide 40 MG/4 ML VIAL IVPUSH SCH (08:56)
[2020-09-25] MEDS: Cholecalciferol (Vitamin D3) 25 MCG Tab PO SCH (09:00)
[2020-09-25] MEDS: Magnesium Oxide 500 MG Tab PO SCH (09:00)
[2020-09-25] MEDS: buPROPion 150 MG Tab.ER PO SCH (09:00)
[2020-09-25] MEDS: Donepezil 10 MG Tab PO SCH ×2 (09:00→20:47)
[2020-09-25] MEDS: Ferrous Sulfate 325 MG Tab PO SCH (09:00)
[2020-09-25] MEDS: Metoprolol Tartrate 25 MG Tab PO SCH ×2 (09:01→20:55)
[2020-09-25] MEDS: Simethicone 80 MG Tab.Chew PO PRN (13:55)
--- NOTE | 2020-09-25 15:55 | PCM.PN ---
- General Info Date of Service: 09/25/20 Subjective Update: 80 YO WF WITH PROFOUND ANEMIA, CONGESTIVE HEART FAILURE AND HYPOXIA WHO STATES IS FEELING BETTER. PT REPORTS GOOD APPETITE, HAS BEEN ABLE TO AMBULATE TO THE BATHROOM INDEPENDENTLY WITHOUT WORSENING SHORTNESS OF BREATH. PT REPORTS SHE HAS BEEN DRINKING A LOT OF WATER DUE TO INCREASED THIRST. Functional Status: Reports: Pain Controlled, Tolerating Diet, Ambulating, Urinating - Review of Systems General: Reports: No Symptoms Pulmonary: Reports: No Symptoms Cardiovascular: Reports: No Symptoms Gastrointestinal: Reports: No Symptoms Genitourinary: Reports: No Symptoms Musculoskeletal: Reports: No Symptoms Skin: Reports: No Symptoms Neurological: Reports: No Symptoms Psychiatric: Reports: No Symptoms - Patient Data Vitals - Most Recent: Last Vital Signs Temp 97.1 F 09/25/20 10:53 Pulse 67 09/25/20 10:53 Resp 18 09/25/20 10:53 BP 90/50 L 09/25/20 10:53 Pulse Ox 95 09/25/20 10:53 Weight - Most Recent: 197 lb 6 oz I&O - Last 24 Hours: Intake & Output 09/25/20 09/25/20 09/25/20 06:59 14:59 22:59 Intake Total 500 600 Balance 500 600 Lab Results Last 24 Hours: Laboratory Results - last 24 hr 09/24/20 09/25/20 09/25/20 Range/Units 16:05 07:00 07:00 WBC 6.27 5.10 (5.00-10.00) 10^3/uL RBC 2.46 L 2.33 L (3.80-5.50) 10^6/uL Hgb 7.9 L 7.4 L (12.0-16.0) g/dL Hct 26.2 L 24.5 L (37.0-47.0) % MCV 106.5 H 105.2 H (82.0-92.0) fL MCH 32.1 H 31.8 H (27.0-31.0) pg MCHC 30.2 L 30.2 L (32.0-36.0) g/dL RDW 21.6 H 21.4 H (11.5-14.5) % Plt Count 164 143 L (150-400) 10^3/uL MPV 9.6 9.0 (7.4-10.4) fL Immature Gran % (Auto) 0.2 (0.0-5.0) % Neut % (Auto) 49.4 L (50.0-70.0) % Lymph % (Auto) 20.6 (20.0-40.0) % Boyd % (Auto) 13.1 H (2.0-8.0) % Eos % (Auto) 16.1 H (1.0-3.0) % Baso % (Auto) 0.6 (0.0-1.0) % Neut # (Auto) 2.52 (2.50-7.00) 10^3/uL Lymph # (Auto) 1.05 (1.00-4.00) 10^3/uL Boyd # (Auto) 0.67 (0.10-0.80) 10^3/uL Eos # (Auto) 0.82 H (0.10-0.30) 10^3/uL Baso # (Auto) 0.03 (0.00-0.10) 10^3/uL Immature Gran # (Auto) 0.01 (0.00-0.50) 10^3/uL Add Manual Diff Yes Neutrophils % (Manual) 55 (50-70) % Band Neutrophils % 1 L (4-12) % Lymphocytes % (Manual) 15 L (20-40) % Monocytes % (Manual) 5 (2-8) % Eosinophils % (Manual) 24 H (1-3) % Absolute Neutrophils 3.45 Band Neutrophils # 0.06 Lymphocytes # (Manual) 0.94 Monocytes # (Manual) 0.31 Eosinophils # (Manual) 1.50 Sodium 140 (136-145) mmol/L Potassium 5.4 H (3.5-5.1) mmol/L Chloride 107 (98-107) mmol/L Carbon Dioxide 24.3 (21.0-32.0) mmol/L Anion Gap 14.1 (5-15) mmol/L BUN 55 H* (7-18) mg/dL Creatinine 1.82 H (0.51-1.17) mg/dL Est Cr Clr Drug Dosing 36.00 mL/min Estimated GFR (MDRD) 27 mL/min Glucose 89 (70-140) mg/dL Calcium 8.2 L (8.7-10.3) mg/dL Total Bilirubin 0.5 (0.2-1.0) mg/dL AST 13 L (15-37) U/L ALT 13 L (14-63) U/L Alkaline Phosphatase 148 H (46-116) U/L Total Protein 5.5 L (6.4-8.2) g/dL Albumin 2.58 L (3.40-5.00) g/dL Med Orders - Current: Current Medications Acetaminophen (Tylenol) 650 mg PO Q4H PRN PRN Reason: Pain (Mild 1-3)/fever Last Admin: 09/25/20 10:51 Dose: 650 mg Documented by: Albuterol/Ipratropium (Duoneb 3.0-0.5 Mg/3 Ml) 3 ml INH Q4H PRN PRN Reason: cough/wheeze Allopurinol (Zyloprim) 100 mg PO DAILY@1999 [facility] Last Admin: 09/24/20 19:47 Dose: 100 mg Documented by: Aripiprazole (Abilify) 10 mg PO DAILY@1999 [facility] Last Admin: 09/24/20 19:47 Dose: 10 mg Documented by: Bupropion HCl (Wellbutrin Xl) 450 mg PO DAILY [facility] Last Admin: 09/25/20 09:00 Dose: 450 mg Documented by: Cholecalciferol (Vitamin D3) 100 mcg PO DAILY [facility] Last Admin: 09/25/20 09:00 Dose: 100 mcg Documented by: Docusate Sodium (Colace) 100 mg PO BID PRN PRN Reason: Constipation Donepezil HCl (Aricept) 10 mg PO BID [facility] Last Admin: 09/25/20 09:00 Dose: 10 mg Documented by: Duloxetine HCl (Cymbalta) 60 mg PO DAILY@1999 [facility] Last Admin: 09/24/20 19:46 Dose: 60 mg Documented by: Ferrous Sulfate (Ferrous Sulfate) 325 mg PO Q48H [facility] Last Admin: 09/25/20 09:00 Dose: 325 mg Documented by: Furosemide (Lasix) 40 mg IVPUSH DAILY [facility] Last Admin: 09/25/20 08:56 Dose: 40 mg Documented by: Guaifenesin/Phenylephrine HCl (Robitussin Dm) 10 ml PO Q4HR PRN PRN Reason: Cough Sodium Chloride (Normal Saline) 250 mls @ 150 mls/hr IV ASDIRECTED [facility] Last Admin: 09/24/20 01:45 Dose: 150 mls/hr Documented by: Magnesium Oxide (Magnesium Oxide) 500 mg PO DAILY [facility] Last Admin: 09/25/20 09:00 Dose: 500 mg Documented by: Meclizine HCl (Antivert) 25 mg PO Q4H PRN PRN Reason: Dizziness Melatonin (Melatonin) 6 mg PO DAILY@1999 [facility] Last Admin: 09/24/20 19:46 Dose: 6 mg Documented by: Metoprolol Tartrate (Lopressor) 12.5 mg PO BID [facility] Last Admin: 09/25/20 09:01 Dose: Not Given Documented by: Pantoprazole Sodium (Protonix) 40 mg PO DAILY@1999 [facility] Last Admin: 09/24/20 19:46 Dose: 40 mg Documented by: Rivaroxaban (Xarelto) 15 mg PO DAILY@1799 [facility] Last Admin: 09/24/20 18:14 Dose: 15 mg Documented by: Simethicone (Simethicone) 80 mg PO Q6H PRN PRN Reason: Heartburn Last Admin: 09/25/20 13:55 Dose: 80 mg Documented by: Sodium Chloride (Saline Flush) 10 ml FLUSH Q8HR PRN PRN Reason: keep vein open Discontinued Medications Bumetanide (Bumex) 1 mg IVPUSH ONETIME ONE Stop: 09/24/20 00:26 Last Admin: 09/24/20 00:38 Dose: 1 mg Documented by: Ferrous Sulfate (Ferrous Sulfate) 325 mg PO Q48H [facility] Last Admin: 09/24/20 09:11 Dose: Not Given Documented by: Furosemide (Lasix) 40 mg IVPUSH DAILY@0500 [facility] Last Admin: 09/24/20 04:06 Dose: 40 mg Documented by: Non-Formulary Medication (Aripiprazole) 10 mg PO 1999 [facility] Non-Formulary Medication (Bupropion Hcl [Wellbutrin Xl]) 300 mg PO DAILY [facility] Non-Formulary Medication (Bupropion Hcl [Wellbutrin Xl]) 150 mg PO DAILY [facility] Non-Formulary Medication (Cholecalciferol (Vitamin D3) [Vitamin D3]) 4,000 unit PO DAILY [facility] Non-Formulary Medication (Duloxetine [Cymbalta]) 60 mg PO 1999 [facility] Non-Formulary Medication (Magnesium Oxide [Magnesium Oxide]) 400 mg PO DAILY [facility] Last Admin: 09/24/20 10:35 Dose: Not Given Documented by: Sodium Chloride (Saline Flush) 10 ml FLUSH Q8HR PRN PRN Reason: keep vein open Last Admin: 09/24/20 00:39 Dose: 10 ml Documented by: - Exam Quality Assessment: Supplemental Oxygen General: Alert, Oriented HEENT: Pupils Equal, Pupils Reactive, Mucous Membr. Moist/[place] Lungs: Clear to Auscultation, Normal Respiratory Effort, Decreased Breath Sounds Cardiovascular: Regular Rate, Regular Rhythm GI/Abdominal Exam: Normal Bowel Sounds, Soft, Non-Tender, No Organomegaly, No Distention, No Abnormal Bruit, No Mass, Pelvis Stable Back Exam: Normal Inspection, Full Range of Motion Extremities: Normal Inspection, Normal Range of Motion, Non-Tender, Normal Capillary Refill, Pedal Edema Skin: Warm, Dry, Intact Neurological: No New Focal Deficit Psy/Mental Status: Alert, Normal Affect, Normal Mood - Patient Data Lab Results Last 24 hrs: Laboratory Results - last 24 hr 09/24/20 09/25/20 09/25/20 Range/Units 16:05 07:00 07:00 WBC 6.27 5.10 (5.00-10.00) 10^3/uL RBC 2.46 L 2.33 L (3.80-5.50) 10^6/uL Hgb 7.9 L 7.4 L (12.0-16.0) g/dL Hct 26.2 L 24.5 L (37.0-47.0) % MCV 106.5 H 105.2 H (82.0-92.0) fL MCH 32.1 H 31.8 H (27.0-31.0) pg MCHC 30.2 L 30.2 L (32.0-36.0) g/dL RDW 21.6 H 21.4 H (11.5-14.5) % Plt Count 164 143 L (150-400) 10^3/uL MPV 9.6 9.0 (7.4-10.4) fL Immature Gran % (Auto) 0.2 (0.0-5.0) % Neut % (Auto) 49.4 L (50.0-70.0) % Lymph % (Auto) 20.6 (20.0-40.0) % Boyd % (Auto) 13.1 H (2.0-8.0) % Eos % (Auto) 16.1 H (1.0-3.0) % Baso % (Auto) 0.6 (0.0-1.0) % Neut # (Auto) 2.52 (2.50-7.00) 10^3/uL Lymph # (Auto) 1.05 (1.00-4.00) 10^3/uL Boyd # (Auto) 0.67 (0.10-0.80) 10^3/uL Eos # (Auto) 0.82 H (0.10-0.30) 10^3/uL Baso # (Auto) 0.03 (0.00-0.10) 10^3/uL Immature Gran # (Auto) 0.01 (0.00-0.50) 10^3/uL Add Manual Diff Yes Neutrophils % (Manual) 55 (50-70) % Band Neutrophils % 1 L (4-12) % Lymphocytes % (Manual) 15 L (20-40) % Monocytes % (Manual) 5 (2-8) % Eosinophils % (Manual) 24 H (1-3) % Absolute Neutrophils 3.45 Band Neutrophils # 0.06 Lymphocytes # (Manual) 0.94 Monocytes # (Manual) 0.31 Eosinophils # (Manual) 1.50 Sodium 140 (136-145) mmol/L Potassium 5.4 H (3.5-5.1) mmol/L Chloride 107 (98-107) mmol/L Carbon Dioxide 24.3 (21.0-32.0) mmol/L Anion Gap 14.1 (5-15) mmol/L BUN 55 H* (7-18) mg/dL Creatinine 1.82 H (0.51-1.17) mg/dL Est Cr Clr Drug Dosing 36.00 mL/min Estimated GFR (MDRD) 27 mL/min Glucose 89 (70-140) mg/dL Calcium 8.2 L (8.7-10.3) mg/dL Total Bilirubin 0.5 (0.2-1.0) mg/dL AST 13 L (15-37) U/L ALT 13 L (14-63) U/L Alkaline Phosphatase 148 H (46-116) U/L Total Protein 5.5 L (6.4-8.2) g/dL Albumin 2.58 L (3.40-5.00) g/dL Result Diagrams: 09/25/20 07:00 09/25/20 07:00 Sepsis Event Note - Evaluation Sepsis Screening Result: No Definite Risk - Focused Exam Vital Signs: Vital Signs Temp Pulse Pulse Resp BP BP BP 09/25/20 10:53 97.1 F 67 18 90/50 L 09/25/20 09:01 64 86/51 L 09/25/20 07:00 97.8 F 70 16 97/51 L Pulse Ox 09/25/20 10:53 95 09/25/20 09:01 09/25/20 07:00 93 L - Problem List Review Problem List Initiated/Reviewed/Updated: Yes - My Orders Last 24 Hours: My Active Orders 09/24/20 18:00 Rivaroxaban [Xarelto] 15 mg PO DAILY@1800 09/24/20 20:00 ARIPiprazole [Abilify] 10 mg PO DAILY@1999 DULoxetine [Cymbalta] 60 mg PO DAILY@1999 Melatonin 6 mg PO DAILY@1999 Pantoprazole [ProTONIX] 40 mg PO DAILY@1999 allopurinoL [Zyloprim] 100 mg PO DAILY@199909/25/20 08:00 Ferrous Sulfate 325 mg PO Q48H 09/25/20 09:00 Furosemide [Lasix] 40 mg IVPUSH DAILY - Assessment Assessment:: 1. PROFOUND ANEMIA- HGB CONTINUES TO TREND DOWNWARD-WILL RECHECK IN AM AND CONSIDER ANOTHER UNIT OF PRBCS NEEDED 2. HYPOXIA- PT CONTINUES TO REQUIRE NC AT 2L-WILL ATTEMPT TO WEAN TOLERATED 3. CHF EXACERBATION-PT WITH INCREASED PO FLUID INTAKE-WILL LIMIT PO FLUIDS TO 32OZ/DAY 4. RECHECK BNP/CBC/BMP IN AM AND CONSIDER PRBCS IN AM IF NECESSARY - Plan Plan:: 1. PROFOUND ANEMIA- HGB CONTINUES TO TREND DOWNWARD-WILL RECHECK IN AM AND CONSIDER ANOTHER UNIT OF PRBCS NEEDED 2. HYPOXIA- PT CONTINUES TO REQUIRE NC AT 2L-WILL ATTEMPT TO WEAN TOLERATED 3. CHF EXACERBATION-PT WITH INCREASED PO FLUID INTAKE-WILL LIMIT PO FLUIDS TO 32OZ/DAY 4. RECHECK BNP/CBC/BMP IN AM AND CONSIDER PRBCS IN AM IF NECESSARY
[2020-09-25] MEDS: Rivaroxaban 10 MG Tab PO SCH (18:27)
[2020-09-25] MEDS: Allopurinol 100 MG Tab PO SCH (20:46)
[2020-09-25] MEDS: Melatonin 3 MG Tab PO SCH (20:46)
[2020-09-25] MEDS: ARIPiprazole 5 MG Tab PO SCH (20:46)
[2020-09-25] MEDS: DULoxetine 30 MG Cap PO SCH (20:46)
[2020-09-25] MEDS: Pantoprazole 40 MG Tab.CR PO SCH (20:47)
[2020-09-25] MEDS ORDERED: Sodium Chloride 0.9% 1,000 ML IV ONE (21:02)
[2020-09-26 08:06] LABS: ANION GAP 11.5 mmol/L (5-15)
[2020-09-26] MEDS: Cholecalciferol (Vitamin D3) 25 MCG Tab PO SCH (08:21)
[2020-09-26] MEDS: buPROPion 150 MG Tab.ER PO SCH (08:22)
[2020-09-26] MEDS: Donepezil 10 MG Tab PO SCH ×2 (08:23→20:46)
[2020-09-26] MEDS: Magnesium Oxide 500 MG Tab PO SCH (08:23)
[2020-09-26] MEDS: Metoprolol Tartrate 25 MG Tab PO SCH ×2 (08:23→22:23)
[2020-09-26] MEDS: Furosemide 40 MG/4 ML VIAL IVPUSH SCH (08:24)
--- NOTE | 2020-09-26 14:52 | PN ---
09/26/2020 PATIENT NAME: BRAULIO PATE SUBJECTIVE: This is a resident at [facility] in [place], [place] who was brought to the ER via EMS from the residential with complaints of decreased oxygenation and increased lower extremity swelling per residential report. The patient does have a history of atrial fibrillation, renal insufficiency and hyperkalemia. The patient was requiring supplemental oxygen, where as she usually does not. She had a 12-lead EKG in the emergency room, which showed a junctional rhythm with an occasional PVC and also prolonged QT interval. She is monitored by telemetry and continues to have a junctional rhythm. She was given 1 unit of packed RBCs on admission for hemoglobin of 7.3. Her hemoglobin has stayed stable. Apparently, she was hypotensive last night with a systolic blood pressure in the 70s. She was given a bolus of normal saline per the emergency room provider. She was extremely thirsty yesterday too according to documentation by the rounding physician respiratory therapist assistant yesterday. She has been able to ambulate to the bathroom independently. Lab work from today shows a stable hemoglobin at 7.5. After her unit of blood, it did go up to 8 and now is trending downwards again it appears. We will continue to watch that. CMP shows BUN and creatinine elevated at 53 and 1.65 with a GFR of 30. BNP is 590. Total protein and albumin are low as well as her calcium. OBJECTIVE: VITAL SIGNS: Temp is 97.6, pulse 74, respirations 20, blood pressure 104/57, O2 saturation is 93% on 2 L of oxygen. She has not diuresed significantly. Her weight is 199. Her admission weight was 197. She continues to get IV Lasix. SKIN: Warm, pale, dry to touch. CARDIAC: Reveals S1, S2 to be normal with a bradycardic rhythm with no murmur, click or gallop auscultated. LUNGS: Clear anteriorly without wheezes, rales, or rhonchi. ABDOMEN: Soft, obese, nontender. Bowel sounds present in all four quadrants. EXTREMITIES: There is mild pedal edema. IMPRESSION: 1. Anemia, stable after 1 unit of packed RBCs. We will continue to monitor daily CBCs. 2. Hypoxia. The patient continues to require O2. We will attempt to wean as tolerated. 3. Congestive heart failure exacerbation. She was put on a fluid limit yesterday to 32 ounces a day. 4. Hypotension. She did receive a fluid bolus from the rounding physician yesterday. We will continue to monitor and start discharge planning once she stabilizes. /[id number]/MODL
[2020-09-26] MEDS: Acetaminophen 325 MG Tab PO PRN (15:28)
[2020-09-26] MEDS: Rivaroxaban 10 MG Tab PO SCH (18:06)
[2020-09-26] MEDS ORDERED: traMADol 50 MG Tab PO PRN (18:49)
[2020-09-26] MEDS: Melatonin 3 MG Tab PO SCH (20:44)
[2020-09-26] MEDS: Allopurinol 100 MG Tab PO SCH (20:45)
[2020-09-26] MEDS: traMADol 50 MG Tab PO SCH (20:45)
[2020-09-26] MEDS: Pantoprazole 40 MG Tab.CR PO SCH (20:45)
[2020-09-26] MEDS: DULoxetine 30 MG Cap PO SCH (20:46)
[2020-09-26] MEDS: ARIPiprazole 5 MG Tab PO SCH (20:46)
[2020-09-27] MEDS: traMADol 50 MG Tab PO SCH ×4 (01:07→19:08)
[2020-09-27] MEDS: Acetaminophen 325 MG Tab PO PRN ×2 (04:57→16:53)
[2020-09-27] MEDS: buPROPion 150 MG Tab.ER PO SCH (08:17)
[2020-09-27] MEDS: Cholecalciferol (Vitamin D3) 25 MCG Tab PO SCH (08:18)
[2020-09-27] MEDS: Ferrous Sulfate 325 MG Tab PO SCH (08:18)
[2020-09-27] MEDS: Magnesium Oxide 500 MG Tab PO SCH (08:19)
[2020-09-27] MEDS: Donepezil 10 MG Tab PO SCH ×2 (08:19→21:16)
[2020-09-27 08:25] LABS: ANION GAP 16.1 mmol/L (5-15)
[2020-09-27] MEDS: Furosemide 40 MG/4 ML VIAL IVPUSH SCH (09:18)
[2020-09-27] MEDS: Sodium Chloride 0.9% 10 ML Syringe FLUSH PRN (09:23)
[2020-09-27] MEDS ORDERED: Furosemide 40 MG/4 ML VIAL IVPUSH ONE (10:00)
[2020-09-27] MEDS: Metoprolol Tartrate 25 MG Tab PO SCH ×2 (11:07→21:16)
[2020-09-27] MEDS: Nystatin Crm 15 GM Tube TOP SCH ×2 (13:43→21:16)
--- NOTE | 2020-09-27 16:01 | PN ---
PATIENT NAME: BRAULIO PATE SUBJECTIVE: This is a correction resident from [facility] in [place], [place]. She is 80 years old. She was brought to the ER via EMS from the correction with complaints of decreased oxygenation and increased lower extremity swelling. The patient has a history of atrial fibrillation, renal insufficiency, hyperkalemia, and congestive heart failure. The patient was requiring supplemental oxygen, where as she usually does not. In the ER, she had a 12-lead EKG, which showed a junctional rhythm with an occasional PVC and also a prolonged QT interval. She is being monitored per telemetry and continues to have a junctional rhythm between 50 and 75. She was given 1 unit of packed RBCs on admission for hemoglobin of 7.3. Her hemoglobin today is stable at 7.5. It did go up to 8 after the unit of blood that she received on admission. Night before last, she was hypotensive, which she does tend to be hypotensive with a systolic blood pressure in the 70s. She was given a bolus of normal saline per the emergency room provider. She was extremely thirsty two days ago also according to documentation by the rounding physician assistant track and field coach and he did put her on a fluid restriction. The patient has been ambulating with assistance in her room. She has not had much of a diuresis since she has been here. Her admission weight was 197 and her weight yesterday was 199, today is 198. She is receiving furosemide 40 mg daily to a saline lock. CBC shows low RBCs at 2.34, hemoglobin as previously stated 7.5 with hematocrit of 25.1. Platelet count is 158,000. White count is normal at 5.13. The patient does have a history of renal insufficiency with a BUN and creatinine of 53 and 1.65 respectively. This is actually improved since her admission. She does have a low calcium, which is undoubtedly related to her low albumin. Total protein is low as well. PHYSICAL EXAMINATION: VITAL SIGNS: Temp is 98, pulse 88, respirations 20, blood pressure 91/40, O2 saturation is 92% on 2 L of oxygen. GENERAL: The patient is sitting up in a chair, is alert and oriented. SKIN: Warm, pale, dry to touch. CARDIAC: Reveals S1, S2 to be normal. Rate and rhythm are regular. No murmur, click, or gallop is auscultated. LUNGS: Clear without rales, wheezes, or rhonchi. ABDOMEN: Soft, nontender. Bowel sounds present in all four quadrants. EXTREMITIES: There is minimal pedal edema. IMPRESSION: 1. Anemia. Stable after 1 unit of packed RBCs. We will continue to monitor daily CBCs. 2. Hypoxemia. The patient continues to require oxygen at 2 L. We will attempt to wean as tolerated. If unable to wean, she may need to go back to the correction on oxygen. 3. Congestive heart failure exacerbation. She is on a fluid limit. I increased her furosemide today to 80 mg IV daily. Hopefully, this helps her diurese a little bit more. 4. Hypotension. She did receive a fluid bolus two days ago. 5. The nursing staff reports that the patient does have intertriginous candidiasis. I did order nystatin for treatment of this. /[id number]/MODL
[2020-09-27] MEDS: Rivaroxaban 10 MG Tab PO SCH (17:59)
[2020-09-27] MEDS: ARIPiprazole 5 MG Tab PO SCH (21:12)
[2020-09-27] MEDS: Pantoprazole 40 MG Tab.CR PO SCH (21:13)
[2020-09-27] MEDS: DULoxetine 30 MG Cap PO SCH (21:13)
[2020-09-27] MEDS: Melatonin 3 MG Tab PO SCH (21:15)
[2020-09-27] MEDS: Allopurinol 100 MG Tab PO SCH (21:15)
[2020-09-28] MEDS ORDERED: Metoprolol Tartrate 25 MG Tab PO ONE (01:05)
[2020-09-28] MEDS: traMADol 50 MG Tab PO SCH ×4 (01:11→18:35)
[2020-09-28] MEDS: Acetaminophen 325 MG Tab PO PRN ×3 (02:57→20:07)
[2020-09-28] MEDS: Magnesium Oxide 500 MG Tab PO SCH (08:40)
[2020-09-28] MEDS: Cholecalciferol (Vitamin D3) 25 MCG Tab PO SCH (08:40)
[2020-09-28] MEDS: Donepezil 10 MG Tab PO SCH ×2 (08:40→20:08)
[2020-09-28] MEDS: buPROPion 150 MG Tab.ER PO SCH (08:42)
[2020-09-28] MEDS: Furosemide 40 MG/4 ML VIAL IVPUSH SCH (09:21)
[2020-09-28 09:33] LABS: ANION GAP 12.1 mmol/L (5-15)
[2020-09-28] MEDS: Metoprolol Tartrate 25 MG Tab PO SCH (10:45)
[2020-09-28] MEDS: Nystatin Crm 15 GM Tube TOP SCH ×2 (10:45→20:09)
[2020-09-28] MEDS ORDERED: Albumin 25% 100 ML IV ONE ×2 (11:38→14:00)
--- NOTE | 2020-09-28 13:03 | PCM.PN ---
- General Info Date of Service: 09/28/20 Admission Dx/Problem (Free Text): CHF Exacerbation Anemia Hyperkalemia Acute on chronic CKD - Review of Systems Systems Review Comment:: Shayla is seen this morning in inpatient rounds. She was admitted on 09/23 through the ER with acute on chronic CKD, CHF exacerbation, hyperkalemia, increasing O2 requirements. Her lasix was increased from 40 mg PO daily to 80 mg IV daily yesterday with improvement in urine output with nearly 8 pound weight decrease. Her HR overnight was in the 120's and her metoprolol was being held due to BP's in the 70's systolic. This is her baseline per [facility] records. She denies any dizziness or lightheadedness. She states today she feels "pretty good". She had been sitting up in her for several hours when I see her this morning and is about to get back in bed stating she feels tired. - Patient Data Vitals - Most Recent: Last Vital Signs Temp 97.9 F 09/28/20 11:25 Pulse 90 09/28/20 11:25 Resp 16 09/28/20 11:25 BP 89/60 L 09/28/20 11:25 Pulse Ox 96 09/28/20 11:25 Weight - Most Recent: 191 lb 9.6 oz I&O - Last 24 Hours: Intake & Output 09/27/20 09/28/20 09/28/20 22:59 06:59 14:59 Intake Total 240 50 Balance 240 50 Lab Results Last 24 Hours: Laboratory Results - last 24 hr 09/28/20 09/28/20 Range/Units 09:08 09:08 WBC 5.06 (5.00-10.00) 10^3/uL RBC 2.48 L (3.80-5.50) 10^6/uL Hgb 7.9 L (12.0-16.0) g/dL Hct 26.7 L (37.0-47.0) % MCV 107.7 H (82.0-92.0) fL MCH 31.9 H (27.0-31.0) pg MCHC 29.6 L (32.0-36.0) g/dL RDW 21.5 H (11.5-14.5) % Plt Count 148 L (150-400) 10^3/uL MPV 9.1 (7.4-10.4) fL Add Manual Diff Yes Neutrophils % (Manual) 47 L (50-70) % Lymphocytes % (Manual) 26 (20-40) % Monocytes % (Manual) 3 (2-8) % Eosinophils % (Manual) 24 H (1-3) % Absolute Neutrophils 2.3782 Lymphocytes # (Manual) 1.3156 Monocytes # (Manual) 0.1518 Eosinophils # (Manual) 1.2144 Sodium 139 (136-145) mmol/L Potassium 4.8 (3.5-5.1) mmol/L Chloride 107 (98-107) mmol/L Carbon Dioxide 24.7 (21.0-32.0) mmol/L Anion Gap 12.1 (5-15) mmol/L BUN 43 H (7-18) mg/dL Creatinine 1.23 H (0.51-1.17) mg/dL Est Cr Clr Drug Dosing 35.29 mL/min Estimated GFR (MDRD) 42 mL/min Glucose 144 H (70-140) mg/dL Calcium 8.5 L (8.7-10.3) mg/dL B-Natriuretic Peptide 822 H (0-100) pg/mL Med Orders - Current: Current Medications Acetaminophen (Tylenol) 650 mg PO Q4H PRN PRN Reason: Pain (Mild 1-3)/fever Last Admin: 09/28/20 10:55 Dose: 650 mg Documented by: Albuterol/Ipratropium (Duoneb 3.0-0.5 Mg/3 Ml) 3 ml INH Q4H PRN PRN Reason: cough/wheeze Allopurinol (Zyloprim) 100 mg PO DAILY@1999 [facility] Last Admin: 09/27/20 21:15 Dose: 100 mg Documented by: Aripiprazole (Abilify) 10 mg PO DAILY@1999 [facility] Last Admin: 09/27/20 21:12 Dose: 10 mg Documented by: Bupropion HCl (Wellbutrin Xl) 450 mg PO DAILY [facility] Last Admin: 09/28/20 08:42 Dose: 450 mg Documented by: Cholecalciferol (Vitamin D3) 100 mcg PO DAILY [facility] Last Admin: 09/28/20 08:40 Dose: 100 mcg Documented by: Docusate Sodium (Colace) 100 mg PO BID PRN PRN Reason: Constipation Donepezil HCl (Aricept) 10 mg PO BID [facility] Last Admin: 09/28/20 08:40 Dose: 10 mg Documented by: Duloxetine HCl (Cymbalta) 60 mg PO DAILY@1999 [facility] Last Admin: 09/27/20 21:13 Dose: 60 mg Documented by: Ferrous Sulfate (Ferrous Sulfate) 325 mg PO Q48H [facility] Last Admin: 09/27/20 08:18 Dose: 325 mg Documented by: Furosemide (Lasix) 80 mg IVPUSH DAILY [facility] Last Admin: 09/28/20 09:21 Dose: 80 mg Documented by: Guaifenesin/Phenylephrine HCl (Robitussin Dm) 10 ml PO Q4HR PRN PRN Reason: Cough Sodium Chloride (Normal Saline) 250 mls @ 150 mls/hr IV ASDIRECTED [facility] Last Admin: 09/24/20 01:45 Dose: 150 mls/hr Documented by: Magnesium Oxide (Magnesium Oxide) 500 mg PO DAILY [facility] Last Admin: 09/28/20 08:40 Dose: 500 mg Documented by: Meclizine HCl (Antivert) 25 mg PO Q4H PRN PRN Reason: Dizziness Melatonin (Melatonin) 6 mg PO DAILY@1999 [facility] Last Admin: 09/27/20 21:15 Dose: 6 mg Documented by: Metoprolol Tartrate (Lopressor) 12.5 mg PO BID [facility] Last Admin: 09/28/20 10:45 Dose: 12.5 mg Documented by: Nystatin (Nystatin Crm) 0 gm TOP BID [facility] Last Admin: 09/28/20 10:45 Dose: 1 applic Documented by: Pantoprazole Sodium (Protonix) 40 mg PO DAILY@1999 [facility] Last Admin: 09/27/20 21:13 Dose: 40 mg Documented by: Rivaroxaban (Xarelto) 15 mg PO DAILY@1799 [facility] Last Admin: 09/27/20 17:59 Dose: 15 mg Documented by: Simethicone (Simethicone) 80 mg PO Q6H PRN PRN Reason: Heartburn Last Admin: 09/25/20 13:55 Dose: 80 mg Documented by: Sodium Chloride (Saline Flush) 10 ml FLUSH Q8HR PRN PRN Reason: keep vein open Last Admin: 09/27/20 09:23 Dose: 10 ml Documented by: Tramadol HCl (Ultram) 50 mg PO Q6H [facility] Last Admin: 09/28/20 07:47 Dose: Not Given Documented by: Tramadol HCl (Ultram) 50 mg PO DAILY PRN PRN Reason: Pain Discontinued Medications Bumetanide (Bumex) 1 mg IVPUSH ONETIME ONE Stop: 09/24/20 00:26 Last Admin: 09/24/20 00:38 Dose: 1 mg Documented by: Ferrous Sulfate (Ferrous Sulfate) 325 mg PO Q48H [facility] Last Admin: 09/24/20 09:11 Dose: Not Given Documented by: Furosemide (Lasix) 40 mg IVPUSH DAILY@0500 [facility] Last Admin: 09/24/20 04:06 Dose: 40 mg Documented by: Furosemide (Lasix) 40 mg IVPUSH DAILY [facility] Last Admin: 09/27/20 09:18 Dose: 40 mg Documented by: Furosemide (Lasix) 40 mg IVPUSH NOW ONE Stop: 09/27/20 10:01 Last Admin: 09/27/20 11:30 Dose: 40 mg Documented by: Sodium Chloride (Normal Saline) 1,000 mls @ 999 mls/hr IV ONETIME ONE Stop: 09/25/20 22:02 Last Admin: 09/25/20 21:29 Dose: 999 mls/hr Documented by: Metoprolol Tartrate (Lopressor) 12.5 mg PO ONETIME ONE Stop: 09/28/20 01:06 Last Admin: 09/28/20 01:14 Dose: 12.5 mg Documented by: Non-Formulary Medication (Aripiprazole) 10 mg PO 2000 [facility] Non-Formulary Medication (Bupropion Hcl [Wellbutrin Xl]) 300 mg PO DAILY [facility] Non-Formulary Medication (Bupropion Hcl [Wellbutrin Xl]) 150 mg PO DAILY [facility] Non-Formulary Medication (Cholecalciferol (Vitamin D3) [Vitamin D3]) 4,000 unit PO DAILY [facility] Non-Formulary Medication (Duloxetine [Cymbalta]) 60 mg PO 2000 [facility] Non-Formulary Medication (Magnesium Oxide [Magnesium Oxide]) 400 mg PO DAILY [facility] Last Admin: 09/24/20 10:35 Dose: Not Given Documented by: Sodium Chloride (Saline Flush) 10 ml FLUSH Q8HR PRN PRN Reason: keep vein open Last Admin: 09/24/20 00:39 Dose: 10 ml Documented by: - Exam Quality Assessment: Supplemental Oxygen General: Alert, Cooperative, No Acute Distress Lungs: Clear to Auscultation, Normal Respiratory Effort Cardiovascular: No Murmurs, Irregular Rhythm GI/Abdominal Exam: Other (She has pitting edema of her abdomen and flanks.) Extremities: No Pedal Edema - Patient Data Lab Results Last 24 hrs: Laboratory Results - last 24 hr 09/28/20 09/28/20 Range/Units 09:08 09:08 WBC 5.06 (5.00-10.00) 10^3/uL RBC 2.48 L (3.80-5.50) 10^6/uL Hgb 7.9 L (12.0-16.0) g/dL Hct 26.7 L (37.0-47.0) % MCV 107.7 H (82.0-92.0) fL MCH 31.9 H (27.0-31.0) pg MCHC 29.6 L (32.0-36.0) g/dL RDW 21.5 H (11.5-14.5) % Plt Count 148 L (150-400) 10^3/uL MPV 9.1 (7.4-10.4) fL Add Manual Diff Yes Neutrophils % (Manual) 47 L (50-70) % Lymphocytes % (Manual) 26 (20-40) % Monocytes % (Manual) 3 (2-8) % Eosinophils % (Manual) 24 H (1-3) % Absolute Neutrophils 2.3782 Lymphocytes # (Manual) 1.3156 Monocytes # (Manual) 0.1518 Eosinophils # (Manual) 1.2144 Sodium 139 (136-145) mmol/L Potassium 4.8 (3.5-5.1) mmol/L Chloride 107 (98-107) mmol/L Carbon Dioxide 24.7 (21.0-32.0) mmol/L Anion Gap 12.1 (5-15) mmol/L BUN 43 H (7-18) mg/dL Creatinine 1.23 H (0.51-1.17) mg/dL Est Cr Clr Drug Dosing 35.29 mL/min Estimated GFR (MDRD) 42 mL/min Glucose 144 H (70-140) mg/dL Calcium 8.5 L (8.7-10.3) mg/dL B-Natriuretic Peptide 822 H (0-100) pg/mL Result Diagrams: 09/28/20 09:08 09/28/20 09:08 Sepsis Event Note - Evaluation Sepsis Screening Result: No Definite Risk - Focused Exam Vital Signs: Vital Signs Temp Pulse Pulse Pulse Resp BP BP 09/28/20 11:25 97.9 F 90 16 89/60 L 09/28/20 10:45 100 80/45 L 09/28/20 08:44 102 H 18 85/49 L 09/28/20 07:05 09/28/20 07:00 98 F 107 H 16 81/36 L 09/28/20 03:00 91 16 82/45 L 09/28/20 01:14 120 H 91/50 L Pulse Ox Pulse Ox 09/28/20 11:25 96 09/28/20 10:45 09/28/20 08:44 95 09/28/20 07:05 96 09/28/20 07:00 96 09/28/20 03:00 90 L 09/28/20 01:14 - Problem List Review Problem List Initiated/Reviewed/Updated: Yes - My Orders Last 24 Hours: My Active Orders 09/28/20 11:38 Albumin 25% [Flexbumin 25%] 100 ml IV ONETIME 09/29/20 05:11 B-TYPE NATRIURETIC PEPTIDE,BNP [CHEM] AM BASIC METABOLIC PANEL,BMP [CHEM] AM CBC WITH AUTO DIFF [HEME] AM 09/30/20 05:11 BASIC METABOLIC PANEL,BMP [CHEM] AM CBC WITH AUTO DIFF [HEME] AM 10/01/20 05:11 BASIC METABOLIC PANEL,BMP [CHEM] AM CBC WITH AUTO DIFF [HEME] AM 10/02/20 05:11 BASIC METABOLIC PANEL,BMP [CHEM] AM CBC WITH AUTO DIFF [HEME] AM 10/03/20 05:11 BASIC METABOLIC PANEL,BMP [CHEM] AM CBC WITH AUTO DIFF [HEME] AM - Assessment Assessment:: Hospital Problems: CHF exacerbation - Continue furosemide 80 mg IV daily - Daily weights - Albumin 25 grams IV x 1 dose 09/28/2020 to try mobilize fluid from [facility] Acute on chronic CKD, likely component of cardiorenal syndrome - BUN and creatinine improving with diuresis Hyperkalemia - Resolved Iron Deficiency anemia - Continue ferrous sulfate 325 mg PO QOD - s/p transfusion of 1 unit PRBC's Atrial Fibrillation - Continue metoprolol 12.5 mg PO BID, hold for SBP <70 - Continue Xarelto 15 mg PO daily CODE STATUS: DNR/DNI Anticipate 2 more night stay for additional IV diuresis and monitoring of BP's and labs. Secondary Problems: Constipation - Colace 100 mg PO BID Dementia - Donepezil 10 mg PO BID Acid Reflux - Pantoprazole 40 mg PO daily Hypomagnesemia - Magnesium oxide 500 mg PO daily Depression - Abilify 10 mg PO daily - Buproprion XL 450 mg PO daily - Duloxetine 60 mg PO daily Pulmonary HTN Vit D deficiency - Vit D 100 mcg PO daily Gout - Allopurinol 100 mg PO daily Chronic Pain - Tramadol 50 mg PO q 6 hours scheduled - Tramadol 50 mg one time PRN
[2020-09-28] MEDS: Rivaroxaban 10 MG Tab PO SCH (18:35)
[2020-09-28] MEDS: Pantoprazole 40 MG Tab.CR PO SCH (20:08)
[2020-09-28] MEDS: ARIPiprazole 5 MG Tab PO SCH (20:08)
[2020-09-28] MEDS: Allopurinol 100 MG Tab PO SCH (20:08)
[2020-09-28] MEDS: DULoxetine 30 MG Cap PO SCH (20:08)
[2020-09-28] MEDS: Melatonin 3 MG Tab PO SCH (20:08)
[2020-09-28] MEDS: Simethicone 80 MG Tab.Chew PO PRN (22:21)
[2020-09-29] MEDS: traMADol 50 MG Tab PO SCH ×5 (02:05→18:19)
[2020-09-29] MEDS: Cholecalciferol (Vitamin D3) 25 MCG Tab PO SCH (08:11)
[2020-09-29] MEDS: buPROPion 150 MG Tab.ER PO SCH (08:11)
[2020-09-29] MEDS: Magnesium Oxide 500 MG Tab PO SCH (08:11)
[2020-09-29] MEDS: Donepezil 10 MG Tab PO SCH ×2 (08:12→20:10)
[2020-09-29] MEDS: Ferrous Sulfate 325 MG Tab PO SCH (08:12)
[2020-09-29] MEDS: Metoprolol Tartrate 25 MG Tab PO SCH ×2 (08:15→20:10)
[2020-09-29] MEDS: Nystatin Crm 15 GM Tube TOP SCH ×2 (08:16→20:08)
[2020-09-29] MEDS: Furosemide 40 MG/4 ML VIAL IVPUSH SCH (08:22)
[2020-09-29 08:24] LABS: ANION GAP 15.3 mmol/L (5-15)
--- NOTE | 2020-09-29 09:13 | PCM.PN ---
- General Info Date of Service: 09/29/20 Admission Dx/Problem (Free Text): CHF Exacerbation Anemia Hyperkalemia Acute on chronic CKD - Review of Systems Systems Review Comment:: Shayla is seen today on inpatient rounds. She had a good evening. PM metoprolol dose was held on 09/28 due to SBP of 71. HR remains in the 80-low 100's but more in the 90 range. She states she feels pretty good. Her breathing is less difficult per her report. She really wasn't hungry for breakfast today. - Patient Data Vitals - Most Recent: Last Vital Signs Temp 97.4 F 09/29/20 05:54 Pulse 96 09/29/20 08:15 Resp 16 09/29/20 05:54 BP 92/53 L 09/29/20 08:15 Pulse Ox 91 L 09/29/20 07:00 Weight - Most Recent: 191 lb 9.6 oz I&O - Last 24 Hours: Intake & Output 09/28/20 09/29/20 09/29/20 22:59 06:59 14:59 Intake Total 400 50 Balance 400 50 Lab Results Last 24 Hours: Laboratory Results - last 24 hr 09/28/20 09/28/20 09/29/20 Range/Units 09:08 09:08 07:40 WBC 5.06 4.39 L (5.00-10.00) 10^3/uL RBC 2.48 L 2.38 L (3.80-5.50) 10^6/uL Hgb 7.9 L 7.5 L (12.0-16.0) g/dL Hct 26.7 L 25.2 L (37.0-47.0) % MCV 107.7 H 105.9 H (82.0-92.0) fL MCH 31.9 H 31.5 H (27.0-31.0) pg MCHC 29.6 L 29.8 L (32.0-36.0) g/dL RDW 21.5 H 20.6 H (11.5-14.5) % Plt Count 148 L 143 L (150-400) 10^3/uL MPV 9.1 9.2 (7.4-10.4) fL Immature Gran % (Auto) 0.0 (0.0-5.0) % Neut % (Auto) 41.4 L (50.0-70.0) % Lymph % (Auto) 19.1 L (20.0-40.0) % [place] % (Auto) 12.8 H (2.0-8.0) % Eos % (Auto) 26.0 H (1.0-3.0) % Baso % (Auto) 0.7 (0.0-1.0) % Neut # (Auto) 1.82 L (2.50-7.00) 10^3/uL Lymph # (Auto) 0.84 L (1.00-4.00) 10^3/uL [place] # (Auto) 0.56 (0.10-0.80) 10^3/uL Eos # (Auto) 1.14 H (0.10-0.30) 10^3/uL Baso # (Auto) 0.03 (0.00-0.10) 10^3/uL Immature Gran # (Auto) 0.00 (0.00-0.50) 10^3/uL Add Manual Diff Yes Neutrophils % (Manual) 47 L (50-70) % Lymphocytes % (Manual) 26 (20-40) % Monocytes % (Manual) 3 (2-8) % Eosinophils % (Manual) 24 H (1-3) % Absolute Neutrophils 2.3782 Lymphocytes # (Manual) 1.3156 Monocytes # (Manual) 0.1518 Eosinophils # (Manual) 1.2144 Sodium 139 (136-145) mmol/L Potassium 4.8 (3.5-5.1) mmol/L Chloride 107 (98-107) mmol/L Carbon Dioxide 24.7 (21.0-32.0) mmol/L Anion Gap 12.1 (5-15) mmol/L BUN 43 H (7-18) mg/dL Creatinine 1.23 H (0.51-1.17) mg/dL Est Cr Clr Drug Dosing 35.29 mL/min Estimated GFR (MDRD) 42 mL/min Glucose 144 H (70-140) mg/dL Calcium 8.5 L (8.7-10.3) mg/dL B-Natriuretic Peptide 822 H (0-100) pg/mL 09/29/20 Range/Units 07:40 WBC (5.00-10.00) 10^3/uL RBC (3.80-5.50) 10^6/uL Hgb (12.0-16.0) g/dL Hct (37.0-47.0) % MCV (82.0-92.0) fL MCH (27.0-31.0) pg MCHC (32.0-36.0) g/dL RDW (11.5-14.5) % Plt Count (150-400) 10^3/uL MPV (7.4-10.4) fL Immature Gran % (Auto) (0.0-5.0) % Neut % (Auto) (50.0-70.0) % Lymph % (Auto) (20.0-40.0) % [place] % (Auto) (2.0-8.0) % Eos % (Auto) (1.0-3.0) % Baso % (Auto) (0.0-1.0) % Neut # (Auto) (2.50-7.00) 10^3/uL Lymph # (Auto) (1.00-4.00) 10^3/uL [place] # (Auto) (0.10-0.80) 10^3/uL Eos # (Auto) (0.10-0.30) 10^3/uL Baso # (Auto) (0.00-0.10) 10^3/uL Immature Gran # (Auto) (0.00-0.50) 10^3/uL Add Manual Diff Neutrophils % (Manual) (50-70) % Lymphocytes % (Manual) (20-40) % Monocytes % (Manual) (2-8) % Eosinophils % (Manual) (1-3) % Absolute Neutrophils Lymphocytes # (Manual) Monocytes # (Manual) Eosinophils # (Manual) Sodium 142 (136-145) mmol/L Potassium 4.9 (3.5-5.1) mmol/L Chloride 106 (98-107) mmol/L Carbon Dioxide 25.6 (21.0-32.0) mmol/L Anion Gap 15.3 H (5-15) mmol/L BUN 46 H (7-18) mg/dL Creatinine 1.36 H (0.51-1.17) mg/dL Est Cr Clr Drug Dosing 31.91 mL/min Estimated GFR (MDRD) 38 mL/min Glucose 85 (70-140) mg/dL Calcium 8.4 L (8.7-10.3) mg/dL B-Natriuretic Peptide 715 H (0-100) pg/mL Med Orders - Current: Current Medications Acetaminophen (Acetaminophen 325 Mg Tab) 650 mg PO Q4H PRN PRN Reason: Pain (Mild 1-3)/fever Last Admin: 09/28/20 20:07 Dose: 650 mg Documented by: Albuterol/Ipratropium (Duoneb 3.0-0.5 Mg/3 Ml) 3 ml INH Q4H PRN PRN Reason: cough/wheeze Allopurinol (Zyloprim) 100 mg PO DAILY@1999 [facility] Last Admin: 09/28/20 20:08 Dose: 100 mg Documented by: Aripiprazole (Abilify) 10 mg PO DAILY@1999 [facility] Last Admin: 09/28/20 20:08 Dose: 10 mg Documented by: Bupropion HCl (Bupropion 150 Mg Tab.Er) 450 mg PO DAILY [facility] Last Admin: 09/29/20 08:11 Dose: 450 mg Documented by: Cholecalciferol (Cholecalciferol (Vitamin D3) 25 Mcg Tab) 100 mcg PO DAILY [facility] Last Admin: 09/29/20 08:11 Dose: 100 mcg Documented by: Docusate Sodium (Colace) 100 mg PO BID PRN PRN Reason: Constipation Donepezil HCl (Donepezil 10 Mg Tab) 10 mg PO BID [facility] Last Admin: 09/29/20 08:12 Dose: 10 mg Documented by: Duloxetine HCl (Cymbalta) 60 mg PO DAILY@1999 [facility] Last Admin: 09/28/20 20:08 Dose: 60 mg Documented by: Ferrous Sulfate (Ferrous Sulfate) 325 mg PO Q48H [facility] Last Admin: 09/29/20 08:12 Dose: 325 mg Documented by: Furosemide (Furosemide 40 Mg/4 Ml Vial) 80 mg IVPUSH DAILY [facility] Last Admin: 09/29/20 08:22 Dose: 80 mg Documented by: Guaifenesin/Phenylephrine HCl (Robitussin Dm) 10 ml PO Q4HR PRN PRN Reason: Cough Sodium Chloride (Normal Saline) 250 mls @ 150 mls/hr IV ASDIRECTED [facility] Last Admin: 09/24/20 01:45 Dose: 150 mls/hr Documented by: Albumin Human (Flexbumin 25%) 100 mls @ 50 mls/hr IV ONETIME ONE Stop: 09/28/20 13:37 Last Admin: 09/28/20 15:54 Dose: Not Given Documented by: Magnesium Oxide (Magnesium Oxide 500 Mg Tab) 500 mg PO DAILY [facility] Last Admin: 09/29/20 08:11 Dose: 500 mg Documented by: Meclizine HCl (Antivert) 25 mg PO Q4H PRN PRN Reason: Dizziness Melatonin (Melatonin) 6 mg PO DAILY@1999 [facility] Last Admin: 09/28/20 20:08 Dose: 6 mg Documented by: Metoprolol Tartrate (Metoprolol Tartrate 25 Mg Tab) 12.5 mg PO BID [facility] Last Admin: 09/29/20 08:15 Dose: Not Given Documented by: Nystatin (Nystatin Crm) 0 gm TOP BID [facility] Last Admin: 09/29/20 08:16 Dose: 1 applic Documented by: Pantoprazole Sodium (Protonix) 40 mg PO DAILY@1999 [facility] Last Admin: 09/28/20 20:08 Dose: 40 mg Documented by: Rivaroxaban (Xarelto) 15 mg PO DAILY@1800 [facility] Last Admin: 09/28/20 18:35 Dose: 15 mg Documented by: Simethicone (Simethicone) 80 mg PO Q6H PRN PRN Reason: Heartburn Last Admin: 09/28/20 22:21 Dose: 80 mg Documented by: Sodium Chloride (Saline Flush) 10 ml FLUSH Q8HR PRN PRN Reason: keep vein open Last Admin: 09/27/20 09:23 Dose: 10 ml Documented by: Tramadol HCl (Tramadol 50 Mg Tab) 50 mg PO Q6H [facility] Last Admin: 09/29/20 06:17 Dose: Not Given Documented by: Tramadol HCl (Ultram) 50 mg PO DAILY PRN PRN Reason: Pain Discontinued Medications Bumetanide (Bumex) 1 mg IVPUSH ONETIME ONE Stop: 09/24/20 00:26 Last Admin: 09/24/20 00:38 Dose: 1 mg Documented by: Ferrous Sulfate (Ferrous Sulfate) 325 mg PO Q48H [facility] Last Admin: 09/24/20 09:11 Dose: Not Given Documented by: Furosemide (Lasix) 40 mg IVPUSH DAILY@0500 [facility] Last Admin: 09/24/20 04:06 Dose: 40 mg Documented by: Furosemide (Lasix) 40 mg IVPUSH DAILY [facility] Last Admin: 09/27/20 09:18 Dose: 40 mg Documented by: Furosemide (Lasix) 40 mg IVPUSH NOW ONE Stop: 09/27/20 10:01 Last Admin: 09/27/20 11:30 Dose: 40 mg Documented by: Sodium Chloride (Normal Saline) 1,000 mls @ 999 mls/hr IV ONETIME ONE Stop: 09/25/20 22:02 Last Admin: 09/25/20 21:29 Dose: 999 mls/hr Documented by: Metoprolol Tartrate (Lopressor) 12.5 mg PO ONETIME ONE Stop: 09/28/20 01:06 Last Admin: 09/28/20 01:14 Dose: 12.5 mg Documented by: Non-Formulary Medication (Aripiprazole) 10 mg PO 1999 [facility] Non-Formulary Medication (Bupropion Hcl [Wellbutrin Xl]) 300 mg PO DAILY [facility] Non-Formulary Medication (Bupropion Hcl [Wellbutrin Xl]) 150 mg PO DAILY [facility] Non-Formulary Medication (Cholecalciferol (Vitamin D3) [Vitamin D3]) 4,000 unit PO DAILY [facility] Non-Formulary Medication (Duloxetine [Cymbalta]) 60 mg PO 1999 [facility] Non-Formulary Medication (Magnesium Oxide [Magnesium Oxide]) 400 mg PO DAILY [facility] Last Admin: 09/24/20 10:35 Dose: Not Given Documented by: Sodium Chloride (Saline Flush) 10 ml FLUSH Q8HR PRN PRN Reason: keep vein open Last Admin: 09/24/20 00:39 Dose: 10 ml Documented by: - Exam Quality Assessment: Supplemental Oxygen General: Alert, Cooperative, No Acute Distress Lungs: Clear to Auscultation, Normal Respiratory Effort Cardiovascular: No Murmurs, Irregular Rhythm Extremities: No Pedal Edema - Patient Data Lab Results Last 24 hrs: Laboratory Results - last 24 hr 09/28/20 09/28/20 09/29/20 Range/Units 09:08 09:08 07:40 WBC 5.06 4.39 L (5.00-10.00) 10^3/uL RBC 2.48 L 2.38 L (3.80-5.50) 10^6/uL Hgb 7.9 L 7.5 L (12.0-16.0) g/dL Hct 26.7 L 25.2 L (37.0-47.0) % MCV 107.7 H 105.9 H (82.0-92.0) fL MCH 31.9 H 31.5 H (27.0-31.0) pg MCHC 29.6 L 29.8 L (32.0-36.0) g/dL RDW 21.5 H 20.6 H (11.5-14.5) % Plt Count 148 L 143 L (150-400) 10^3/uL MPV 9.1 9.2 (7.4-10.4) fL Immature Gran % (Auto) 0.0 (0.0-5.0) % Neut % (Auto) 41.4 L (50.0-70.0) % Lymph % (Auto) 19.1 L (20.0-40.0) % [place] % (Auto) 12.8 H (2.0-8.0) % Eos % (Auto) 26.0 H (1.0-3.0) % Baso % (Auto) 0.7 (0.0-1.0) % Neut # (Auto) 1.82 L (2.50-7.00) 10^3/uL Lymph # (Auto) 0.84 L (1.00-4.00) 10^3/uL [place] # (Auto) 0.56 (0.10-0.80) 10^3/uL Eos # (Auto) 1.14 H (0.10-0.30) 10^3/uL Baso # (Auto) 0.03 (0.00-0.10) 10^3/uL Immature Gran # (Auto) 0.00 (0.00-0.50) 10^3/uL Add Manual Diff Yes Neutrophils % (Manual) 47 L (50-70) % Lymphocytes % (Manual) 26 (20-40) % Monocytes % (Manual) 3 (2-8) % Eosinophils % (Manual) 24 H (1-3) % Absolute Neutrophils 2.3782 Lymphocytes # (Manual) 1.3156 Monocytes # (Manual) 0.1518 Eosinophils # (Manual) 1.2144 Sodium 139 (136-145) mmol/L Potassium 4.8 (3.5-5.1) mmol/L Chloride 107 (98-107) mmol/L Carbon Dioxide 24.7 (21.0-32.0) mmol/L Anion Gap 12.1 (5-15) mmol/L BUN 43 H (7-18) mg/dL Creatinine 1.23 H (0.51-1.17) mg/dL Est Cr Clr Drug Dosing 35.29 mL/min Estimated GFR (MDRD) 42 mL/min Glucose 144 H (70-140) mg/dL Calcium 8.5 L (8.7-10.3) mg/dL B-Natriuretic Peptide 822 H (0-100) pg/mL 09/29/20 Range/Units 07:40 WBC (5.00-10.00) 10^3/uL RBC (3.80-5.50) 10^6/uL Hgb (12.0-16.0) g/dL Hct (37.0-47.0) % MCV (82.0-92.0) fL MCH (27.0-31.0) pg MCHC (32.0-36.0) g/dL RDW (11.5-14.5) % Plt Count (150-400) 10^3/uL MPV (7.4-10.4) fL Immature Gran % (Auto) (0.0-5.0) % Neut % (Auto) (50.0-70.0) % Lymph % (Auto) (20.0-40.0) % [place] % (Auto) (2.0-8.0) % Eos % (Auto) (1.0-3.0) % Baso % (Auto) (0.0-1.0) % Neut # (Auto) (2.50-7.00) 10^3/uL Lymph # (Auto) (1.00-4.00) 10^3/uL [place] # (Auto) (0.10-0.80) 10^3/uL Eos # (Auto) (0.10-0.30) 10^3/uL Baso # (Auto) (0.00-0.10) 10^3/uL Immature Gran # (Auto) (0.00-0.50) 10^3/uL Add Manual Diff Neutrophils % (Manual) (50-70) % Lymphocytes % (Manual) (20-40) % Monocytes % (Manual) (2-8) % Eosinophils % (Manual) (1-3) % Absolute Neutrophils Lymphocytes # (Manual) Monocytes # (Manual) Eosinophils # (Manual) Sodium 142 (136-145) mmol/L Potassium 4.9 (3.5-5.1) mmol/L Chloride 106 (98-107) mmol/L Carbon Dioxide 25.6 (21.0-32.0) mmol/L Anion Gap 15.3 H (5-15) mmol/L BUN 46 H (7-18) mg/dL Creatinine 1.36 H (0.51-1.17) mg/dL Est Cr Clr Drug Dosing 31.91 mL/min Estimated GFR (MDRD) 38 mL/min Glucose 85 (70-140) mg/dL Calcium 8.4 L (8.7-10.3) mg/dL B-Natriuretic Peptide 715 H (0-100) pg/mL Result Diagrams: 09/29/20 07:40 09/29/20 07:40 Sepsis Event Note - Evaluation Sepsis Screening Result: No Definite Risk - Focused Exam Vital Signs: Vital Signs Temp Pulse Pulse Resp BP BP Pulse Ox 09/29/20 08:15 96 92/53 L 09/29/20 07:00 09/29/20 05:54 97.4 F 99 16 84/52 L 91 L 09/29/20 02:16 98.4 F 103 H 16 76/43 L 85 L 09/28/20 22:20 97.4 F 92 16 79/43 L 91 L Pulse Ox 09/29/20 08:15 09/29/20 07:00 91 L 09/29/20 05:54 09/29/20 02:16 09/28/20 22:20 - Problem List Review Problem List Initiated/Reviewed/Updated: Yes - My Orders Last 24 Hours: My Active Orders 09/30/20 05:11 BASIC METABOLIC PANEL,BMP [CHEM] AM CBC WITH AUTO DIFF [HEME] AM 10/01/20 05:11 BASIC METABOLIC PANEL,BMP [CHEM] AM CBC WITH AUTO DIFF [HEME] AM 10/02/20 05:11 BASIC METABOLIC PANEL,BMP [CHEM] AM CBC WITH AUTO DIFF [HEME] AM 10/03/20 05:11 BASIC METABOLIC PANEL,BMP [CHEM] AM CBC WITH AUTO DIFF [HEME] AM - Assessment Assessment:: Hospital Problems: CHF exacerbation - Continue furosemide 80 mg IV daily - Daily weights - Albumin 25 grams IV x 1 dose 09/28/2020 to try mobilize fluid from [facility] Acute on chronic CKD, likely component of cardiorenal syndrome - BUN and creatinine improving with diuresis Hyperkalemia - Resolved Iron Deficiency anemia - Continue ferrous sulfate 325 mg PO QOD - s/p transfusion of 1 unit PRBC's Atrial Fibrillation - Continue metoprolol 12.5 mg PO BID, hold for SBP <70 - Continue Xarelto 15 mg PO daily CODE STATUS: DNR/DNI Anticipate 1 more night stay for additional IV diuresis and monitoring of BP's and labs. Secondary Problems: Constipation - Colace 100 mg PO BID Dementia - Donepezil 10 mg PO BID Acid Reflux - Pantoprazole 40 mg PO daily Hypomagnesemia - Magnesium oxide 500 mg PO daily Depression - Abilify 10 mg PO daily - Buproprion XL 450 mg PO daily - Duloxetine 60 mg PO daily Pulmonary HTN Vit D deficiency - Vit D 100 mcg PO daily Gout - Allopurinol 100 mg PO daily Chronic Pain - Tramadol 50 mg PO q 6 hours scheduled - Tramadol 50 mg one time PRN
[2020-09-29] MEDS: Acetaminophen 325 MG Tab PO PRN ×3 (09:19→20:09)
[2020-09-29] MEDS: Rivaroxaban 10 MG Tab PO SCH (18:17)
[2020-09-29] MEDS: Pantoprazole 40 MG Tab.CR PO SCH (20:09)
[2020-09-29] MEDS: Allopurinol 100 MG Tab PO SCH (20:09)
[2020-09-29] MEDS: ARIPiprazole 5 MG Tab PO SCH (20:09)
[2020-09-29] MEDS: DULoxetine 30 MG Cap PO SCH (20:10)
[2020-09-29] MEDS: Melatonin 3 MG Tab PO SCH (20:10)
[2020-09-30] MEDS: traMADol 50 MG Tab PO SCH ×4 (00:04→12:39)
[2020-09-30 07:47] LABS: ANION GAP 12.8 mmol/L (5-15)
[2020-09-30 08:28] VITALS: PULSE 71
[2020-09-30] MEDS: Acetaminophen 325 MG Tab PO PRN (08:53)
[2020-09-30] MEDS: buPROPion 150 MG Tab.ER PO SCH (08:54)
[2020-09-30] MEDS: Cholecalciferol (Vitamin D3) 25 MCG Tab PO SCH (08:54)
[2020-09-30] MEDS: Magnesium Oxide 500 MG Tab PO SCH (08:54)
[2020-09-30] MEDS: Donepezil 10 MG Tab PO SCH (08:54)
[2020-09-30 08:55] VITALS: BP 96/58
[2020-09-30] MEDS: Metoprolol Tartrate 25 MG Tab PO SCH (08:55)
[2020-09-30] MEDS: Furosemide 40 MG/4 ML VIAL IVPUSH SCH (08:56)
[2020-09-30] MEDS: Nystatin Crm 15 GM Tube TOP SCH (09:00)
[2020-09-30] MEDS: Sodium Chloride 0.9% 10 ML Syringe FLUSH PRN (09:02)
--- NOTE | 2020-10-01 09:56 | DISCH ---
This is a 80-year-old female who was admitted through the emergency room on 09/24/2020 with CHF exacerbation and hypoxemia. The patient does have chronic kidney disease as well as hyperkalemia and has had increased O2 requirements. She apparently has oxygen at the [facility] at night, but does not use it during the day. Her Lasix was increased from 40 mg p.o. daily to 80 mg IV. She also received 1 unit of packed RBCs upon admission and received albumin in the hospital as well. She has improved and has been optimized to the point now where she could be discharged. PHYSICAL EXAMINATION: VITAL SIGNS: On exam today, stable. SKIN: Warm and dry to touch. Somewhat pale. CARDIAC: Reveals S1, S2 to be normal. Rate and rhythm are regular. No murmur, click, gallop is auscultated. LUNGS: Clear. ABDOMEN: Soft, nontender. Bowel sounds present in all four quadrants. She does have some dependent edema around her pannus. EXTREMITIES: There is no pedal edema. IMPRESSION: 1. Anemia. This is stable, although she still does have a hemoglobin of 7.4. This is a chronic problem for this patient. 2. Hypoxemia. The patient does require more oxygen and she will continue [facility] this at the [facility]. 3. Congestive heart failure. She was limited with her oral fluids. We are increasing her furosemide from 40 mg p.o. daily upon admission, now to 40 mg b.i.d. 4. Hypotension. She received fluid boluses and also had several occasions where her metoprolol was held. 5. Intertriginous candidiasis, on nystatin. 6. Chronic kidney disease. This is stable and actually improved after receiving albumin. 7. Atrial fibrillation, stable. 8. Hyperkalemia. Potassium today is 5.1. 9. She does have a history of depression with anxiety and we did not make any changes in her medication regimen for the same. /[id number]/MODL
== END 2020-09-30 13:35 | DRG 292 ==
LOC: KA.ED 22:41 → KA.MS 09-24 00:27 → UNDOADMIN 09-24 01:30 → UNDODISIN 09-30 13:35
PROVIDERS: ADMIT Physician Assistant Medical
PROC: 30233N1 Transfusion of Nonautologous Red Blood Cells into Peripheral Vein, Percutaneous Approach (ICD-10-PCS; principal; 2020-09-23)
DX: D64.89 Other specified anemias (principal); R09.02 Hypoxemia; I13.0 Hypertensive heart and chronic kidney disease with heart failure and stage 1 through stage 4 chronic kidney disease, or unspecified chronic kidney disease; N17.9 Acute kidney failure, unspecified; I95.9 Hypotension, unspecified; D50.9 Iron deficiency anemia, unspecified; B37.2 Candidiasis of skin and nail; N18.9 Chronic kidney disease, unspecified; I34.0 Nonrheumatic mitral (valve) insufficiency; I07.1 Rheumatic tricuspid insufficiency; I48.91 Unspecified atrial fibrillation; E87.5 Hyperkalemia; M54.9 Dorsalgia, unspecified; F32.9 Major depressive disorder, single episode, unspecified; M54.2 Cervicalgia; F41.9 Anxiety disorder, unspecified; D63.1 Anemia in chronic kidney disease; H54.7 Unspecified visual loss; E78.00 Pure hypercholesterolemia, unspecified; K21.9 Gastro-esophageal reflux disease without esophagitis; E61.1 Iron deficiency; I50.9 Heart failure, unspecified; G30.9 Alzheimer's disease, unspecified; F02.80 Dementia in other diseases classified elsewhere, unspecified severity, without behavioral disturbance, psychotic disturbance, mood disturbance, and anxiety; K52.9 Noninfective gastroenteritis and colitis, unspecified; Z66 Do not resuscitate; Z20.822 Contact with and (suspected) exposure to COVID-19; E83.42 Hypomagnesemia; E55.9 Vitamin D deficiency, unspecified; I27.20 Pulmonary hypertension, unspecified; M10.9 Gout, unspecified; G89.29 Other chronic pain; Z88.1 Allergy status to other antibiotic agents; Z88.5 Allergy status to narcotic agent; Z88.6 Allergy status to analgesic agent; Z88.8 Allergy status to other drugs, medicaments and biological substances; Z79.899 Other long term (current) drug therapy; Z87.440 Personal history of urinary (tract) infections; Z86.73 Personal history of transient ischemic attack (TIA), and cerebral infarction without residual deficits; Z98.49 Cataract extraction status, unspecified eye; Z90.49 Acquired absence of other specified parts of digestive tract; Z90.710 Acquired absence of both cervix and uterus; Z96.659 Presence of unspecified artificial knee joint; I08.1 Rheumatic disorders of both mitral and tricuspid valves; Z86.14 Personal history of Methicillin resistant Staphylococcus aureus infection; M81.0 Age-related osteoporosis without current pathological fracture; Z79.82 Long term (current) use of aspirin
CPT/HCPCS: 36415; 36430; 71045; 80048; 80053; 82550; 82553; 83880; 84484; 85025; 85610; 85730; 86850; 86900; 86901; 86920; 86922; 93005; 99223; 99233; 99285-25; A9270-GY; J1940; J3490; J7030; J7050; P9016; P9047; U0002